=== PATIENT | male | born 1965 | race Caucasian/White ===

== ENCOUNTER 2017-11-26 07:58 | Inpatient (IN) | payer SELFPAY ==
[~2017-11-26] VITALS: Ht 172.7 cm; Wt 69.2 kg
[~2017-11-26 07:58] MED LIST: IBUP800 PO; PERC5TAB12 PO
[2017-11-26 08:03] VITALS: BP 149/65; PULSE 92; RESP 16; TEMP 97.7; O2SAT 99
[2017-11-26 08:29] VITALS: BP 140/90; PULSE 79; RESP 17; O2SAT 99
--- NOTE | 2017-11-26 10:23 | PD ---
HPI Chief Complaint: Edema Time Seen by Provider: 09:15 Travel History International Travel<30 days: No Contact w/Intl Traveler<30days: No Traveled to known affect area: No History of Present Illness HPI This patient complains of right foot pain. His right fourth toe became black and painful 2 weeks ago. He has let it go up until this point. He denies fever. No injury. Patient was a smoker until 1 year ago. He was a heavy drinker until 1 month ago. Symptoms are severe. No alleviating factors. No exacerbating factors. PFSH Past Medical History Medical History: Denies Significant Hx Diminished Hearing: No Past Surgical History Other Surgery: Yes (JAW FX, SKULL FX) Social History Alcohol Use: No (2-3 MIXED DRINKS PER DAY- denies) Tobacco Use: No Substance Use: No Allergies-Medications (Allergen,Severity, Reaction): Coded Allergies: No Known Allergies (Verified Allergy, Unknown, 11/26/17) Reported Meds & Prescriptions Reported Meds & Active Scripts Active No Active Prescriptions or Reported Medications Review of Systems General / Constitutional: No: Fever Eyes: No: Visual changes HENT: No: Headaches Cardiovascular: Positive: Edema, No: Chest Pain or Discomfort Respiratory: No: Shortness of Breath Gastrointestinal: No: Abdominal Pain Genitourinary: No: Dysuria Musculoskeletal: Positive: Edema, Pain Skin: No Rash Neurologic: No: Weakness Psychiatric: No: Depression Endocrine: No: Polydipsia Hematologic/Lymphatic: No: Easy Bruising Physical Exam Narrative GENERAL: Well-nourished, well-developed patient with right foot pain . SKIN: Focused skin assessment reveals no rash and nodules. Skin is Warm and dry. HEAD: Atraumatic. Normocephalic. EYES: Pupils equal and round. No scleral icterus. No injection or drainage. ENT: No nasal bleeding or discharge. Mucous membranes pink and moist. NECK: Trachea midline. No JVD. CARDIOVASCULAR: Regular rate and rhythm. No murmur appreciated. RESPIRATORY: No accessory muscle use. Clear to auscultation. Breath sounds equal bilaterally. GASTROINTESTINAL: Abdomen soft, non-tender, nondistended. Hepatic and splenic margins not palpable. MUSCULOSKELETAL: The distal two thirds of his right fourth toe is black and necrotic. There is some yellow puslike discharge from that area. The entire right foot is swollen. Pulses are difficult to obtain. He has a readily palpable posterior tibial pulse on the left foot. No clubbing. No cyanosis. No edema. NEUROLOGICAL: Awake and alert. No obvious cranial nerve deficits. Motor grossly within normal limits. Normal speech. PSYCHIATRIC: Appropriate mood and affect; insight and judgment normal. Data Data Last Documented VS Vital Signs Date Time Temp Pulse Resp B/P (MAP) Pulse Ox O2 Delivery O2 Flow Rate FiO2 11/26/17 10:56 17 11/26/17 08:29 79 140/90 (107) 99 Room Air 11/26/17 08:03 97.7 Orders Orders Iv Access Insert/Monitor (11/26/17 10:10) Complete Blood Count With Diff (11/26/17 10:10) Basic Metabolic Panel (Bmp) (11/26/17 10:10) Prothrombin Time / Inr (Pt) (11/26/17 10:10) Act Partial Throm Time (Ptt) (11/26/17 10:10) Maritime Guard / Telemetry YUMIKO.Q8H (11/26/17 10:10) Electrocardiogram (11/26/17 ) Cta Runoff W Iv Contrast W 3d (11/26/17 ) Piperacil-Tazo 3.375 Gm Premix (Zosyn 3. (11/26/17 10:30) Ondansetron Inj (Zofran Inj) (11/26/17 10:45) Morphine Inj (Morphine Inj) (11/26/17 10:45) Morphine Inj (Morphine Inj) (11/26/17 10:45) Iohexol 350 Inj (Omnipaque 350 Inj) (11/26/17 12:05) Westergren Sedimentation Rate (11/26/17 14:40) Vancomycin Consult Pharmacy (Vancomycin (11/26/17 14:45) Vancomycin Inj (Vancomycin Inj) (11/26/17 14:45) Piperacil-Tazo 3.375 Gm Premix (Zosyn 3. (11/26/17 14:45) Consult Vascular Surgery (11/26/17 ) Place In Observation (11/26/17 ) Vital Signs (Adult) Q4H (11/26/17 14:40) Activity Oob With Assistance (11/26/17 14:40) Intake + Output YUMIKO.QSHIFT (11/26/17 14:40) Diet Npo (1/25/18 Dinner) Sodium Chlor 0.45% 1000 Ml Inj (1/2 Ns 1 (11/26/17 14:40) Sodium Chloride 0.9% Flush (Ns Flush) (11/26/17 14:45) Sodium Chloride 0.9% Flush (Ns Flush) (11/26/17 21:00) Ondansetron Inj (Zofran Inj) (11/26/17 14:45) Comprehensive Metabolic Panel (11/27/17 06:00) Complete Blood Count With Diff (11/27/17 06:00) Pt Request For Service (11/26/17 14:40) Case Management Consult (11/26/17 14:40) Naloxone Inj (Narcan Inj) (11/26/17 14:45) Docusate Sodium-Senna (Beatriz-Colace) (11/26/17 21:00) Magnesium Hydroxide Liq (Milk Of Magnesi (11/26/17 14:45) Sennosides (Senokot) (11/26/17 14:45) Bisacodyl Supp (Dulcolax Supp) (11/26/17 14:45) Lactulose Liq (Lactulose Liq) (11/26/17 14:45) Labs Laboratory Tests Test 11/26/17 10:50 White Blood Count 11.5 TH/MM3 Red Blood Count 4.77 MIL/MM3 Hemoglobin 10.0 GM/DL Hematocrit 32.9 % Mean Corpuscular Volume 69.0 FL Mean Corpuscular Hemoglobin 20.9 PG Mean Corpuscular Hemoglobin Concent 30.3 % Red Cell Distribution Width 18.7 % Platelet Count 349 TH/MM3 Mean Platelet Volume 10.6 FL Neutrophils (%) (Auto) 83.5 % Lymphocytes (%) (Auto) 6.2 % Monocytes (%) (Auto) 7.5 % Eosinophils (%) (Auto) 2.1 % Basophils (%) (Auto) 0.7 % Neutrophils # (Auto) 9.6 TH/MM3 Lymphocytes # (Auto) 0.7 TH/MM3 Monocytes # (Auto) 0.9 TH/MM3 Eosinophils # (Auto) 0.2 TH/MM3 Basophils # (Auto) 0.1 TH/MM3 CBC Comment DIFF FINAL Differential Comment Prothrombin Time 10.6 SEC Prothromb Time International Ratio 1.0 RATIO Activated Partial Thromboplast Time 29.0 SEC Blood Urea Nitrogen 15 MG/DL Creatinine 1.03 MG/DL Random Glucose 85 MG/DL Calcium Level 9.2 MG/DL Sodium Level 140 MEQ/L Potassium Level 4.0 MEQ/L Chloride Level 106 MEQ/L Carbon Dioxide Level 26.8 MEQ/L Anion Gap 7 MEQ/L Estimat Glomerular Filtration Rate 76 ML/MIN MDM Medical Decision Making Medical Screen Exam Complete: Yes Emergency Medical Condition: Yes Medical Record Reviewed: Yes Differential Diagnosis Arterial thrombosis, arterial embolism, severe PVD Narrative Course I have reviewed the patient's electronic medical record. IV placed CBC shows minimal leukocytosis and minimal anemia Metabolic profile is normal Coagulation studies are normal I've ordered CT of the aorta with runoff to evaluate for thrombosis Will check Doppler pulses in the right foot Giving him a dose of IV Zosyn I cannot palpate right foot pulses but they can be dopplered I can palpate left foot pulses I reviewed the CT of the aorta with runoff vascular surgeon Dr. Bryant He is recommending heparin drip but no emergent surgery at this time. This process is subacute and has been going on for 2 weeks I reviewed with the hospitalist who will admit Critical Care Narrative Aggregate critical care time was 34 minutes. Time to perform other separately billable procedures was not included in the critical care time. My time did not include minutes spent treating any other patients simultaneously or on activities that did not directly contribute to the patient's treatment. The services I provided to this patient were to treat and/or prevent clinically significant deterioration that could result in: Loss of limb, acute arterial thrombus, ischemic limb I provided critical care services requiring my management, as noted below: Chart data review, documentation time, medication orders and management, vital sign assessments/reviewing monitor data, ordering and reviewing lab tests, ordering and interpreting/reviewing x-rays and diagnostic studies, care of the patient and discussion of the patient with the admitting physicians. Diagnosis Primary Impression: Popliteal artery thrombosis Additional Impression: Ischemic rest pain of lower extremity Admitting Information Admitting Physician Requests: Admit Scripts No Active Prescriptions or Reported Meds Donavon Mcduffie MD Nov 26, 2017 10:23
[2017-11-26] MEDS ORDERED: PIPERACIL-TAZO 3.375 GM PREMIX 50 ML IV ONE (10:30)
[2017-11-26] MEDS ORDERED: ONDANSETRON HCL 4 MG/2 ML VIAL IV ONE (10:45)
[2017-11-26] MEDS ORDERED: MORPHINE SULFATE 4 MG/ML INJ IV PUSH ONE (10:45)
[2017-11-26] MEDS ORDERED: MORPHINE SULFATE 2 MG/ML INJ IV PUSH ONE (10:45)
[2017-11-26 11:01] LABS: AUTOMATED NEUTROPHIL # 9.6 TH/MM3 (1.8-7.7); BASOPHIL # 0.1 TH/MM3 (0-0.2); BASOPHIL % 0.7 % (0.0-2.0); EOSINOPHIL # 0.2 TH/MM3 (0-0.4); EOSINOPHIL % 2.1 % (0.0-4.0); HEMATOCRIT 32.9 % (39.0-51.0); LYMPH % 6.2 % (9.0-44.0); LYMPHOCYTE # 0.7 TH/MM3 (1.0-4.8); MEAN CORPUSCULAR HEMOGLOBIN 20.9 PG (27.0-34.0); MEAN CORPUSCULAR HGB CONC 30.3 % (32.0-36.0); MEAN PLATELET VOLUME 10.6 FL (7.0-11.0); MONO % 7.5 % (0.0-8.0); MONOCYTE # 0.9 TH/MM3 (0-0.9); NEUT % 83.5 % (16.0-70.0); PLATELET COUNT 349 TH/MM3 (150-450); RED BLOOD COUNT 4.77 MIL/MM3 (4.50-5.90); RED CELL DISTRIBUTION WIDTH 18.7 % (11.6-17.2); WHITE BLOOD COUNT 11.5 TH/MM3 (4.0-11.0)
[2017-11-26 11:11] LABS: PROTHROMBIN TIME - PATIENT 10.6 SEC (9.8-11.6)
[2017-11-26 11:25] LABS: BICARBONATE 26.8 MEQ/L (21.0-32.0); CALCIUM 9.2 MG/DL (8.5-10.1); CREATININE 1.03 MG/DL (0.60-1.30)
[2017-11-26] MEDS ORDERED: IOHEXOL 350 MG/ML 10 ML VIAL (for RAD DIAG) IVCONTRAST ONE (12:05)
--- NOTE | 2017-11-26 13:55 | RADRPT ---
EXAM DATE/TIME: 11/26/2017 11:48 [facility] COMPARISON: No previous studies available for comparison. INDICATIONS : Right foot pain, unable to stand on right foot. IV CONTRAST: 87 cc Omnipaque 350 (iohexol) IV RADIATION DOSE: 7.62 CTDIvol (mGy) MEDICAL HISTORY : Gout SURGICAL HISTORY : None. ENCOUNTER: Initial ACUITY: 1 week PAIN SCALE: 10/10 LOCATION: Right Foot TECHNIQUE: Volumetric scanning was performed using a multi-row detector CT scanner. The data was post processed with a variety of visualization algorithms including full volume maximum intensity projection, multi -planar sliding thin slab reformation, curved planar reformation, and surface rendering techniques. Using automated exposure control and adjustment of the mA and/or kV according to patient size, radiat ion dose was kept as low as reasonably achievable to obtain optimal diagnostic quality images. DICO M format image data is available electronically for review and comparison. FINDINGS: Aorta/inflow: Mild scattered calcified and noncalcified atheromatous plaque throughout the aorta and inflow vessels . No aneurysmal change, dissection, or stenosis. 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 The arterial supply arises from the bifurcation point of the aorta similar to the typical location of a presacral artery origin. 2 renal arteries supply the right kidn ey. They are patent. The celiac, SMA, and YASMINE are patent. The left internal iliac artery is occluded. The origin is patent but quickly occludes and there is faint opacification of the peripheral distrib ution. Right internal iliac artery is patent.. Right lower extremity: There is acute thrombus seen involving the below-knee popliteal artery. This begins at the level of t he knee joint and extends through the entire below-knee popliteal artery and into the origin of the t rifurcation vessels. There is reconstitution of the proximal peroneal and posterior tibial arteries. No appreciable reconstitution of the anterior tibial. The inflow is otherwise patent. Left lower extremity: There is variant anatomy involving the common femoral artery. There is a trifurcation seen involving the profunda femoris. This is patent. The SFA and popliteal artery are patent. 3 vessel runoff to the left foot. Other structures: Edema is seen involving the right lower extremity. As most pronounced at the level of the ankle. The left kidney is ectopic within the pelvis. CONCLUSION: 1. Acute occlusive thrombus involving the below-knee popliteal artery and proximal trifurcation vesse ls on the right. There is reconstitution of the peroneal and posterior tibial artery. 2. 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 3. Otherwise patent inflow, outflow, and runoff bilaterally. 4. 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 Juan Webster Jr., MD on November 26, 2017 at 13:43 Board Certified Radiologist. This report was verified electronically.
[2017-11-26] MEDS ORDERED: MAGNESIUM HYDROXIDE SUSP 30 ML CUP PO PRN (14:45)
[2017-11-26] MEDS ORDERED: SENNOSIDES 8.6 MG TAB PO PRN (14:45)
[2017-11-26] MEDS ORDERED: ONDANSETRON HCL 4 MG/2 ML VIAL IVP PRN (14:45)
[2017-11-26] MEDS ORDERED: NALOXONE HCL 0.4 MG/ML AMP IV PUSH PRN ×2 (14:45→15:30)
[2017-11-26] MEDS ORDERED: BISACODYL 10 MG SUPP RECTAL PRN (14:45)
[2017-11-26] MEDS ORDERED: Vancomycin Consult Pharmacy 1 EA OTHER SCH (14:45)
[2017-11-26] MEDS ORDERED: SODIUM CHLORIDE 0.9% FLUSH 10 ML FLUSH IV FLUSH PRN (14:45)
[2017-11-26] MEDS ORDERED: LACTULOSE SYRUP 20 GM/30 ML CUP PO PRN (14:45)
[2017-11-26 15:13] VITALS: BP 172/74; PULSE 62; RESP 20
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
[2017-11-26] MEDS ORDERED: ACETAMINOPHEN/HYDROcodone 325 MG/5 MG TAB PO PRN (15:30)
[2017-11-26] MEDS: ACETAMINOPHEN/HYDROcodone 325 MG/7.5 MG TAB PO PRN ×2 (15:46→20:30)
[2017-11-26] MEDS: SODIUM CHLOR 0.45% 1000 ML INJ 1,000 ML IV SCH (15:46)
[2017-11-26] MEDS: MORPHINE SULFATE 4 MG/ML INJ IV PUSH PRN ×2 (16:50→21:40)
--- NOTE | 2017-11-26 16:55 | HHI.HP ---
[facility] No Primary Care Physician Admission Diagnosis arterial thrombus, ischemic rest pain, necrotic R fourth toe Diagnoses: Travel History International Travel<30 Days: No Contact w/Intl Traveler <30 Da: No Traveled to Known Affected Are: No History of Present Illness 52-year-old male with a past extensive history of smoking, gout, who presents with a two-week history of worsening constant, nonradiating right foot pain, with drastic worsening over the past day. Pain is worse with elevation, better with dangling. Denies any fevers, chills, chest pain, shortness of breath. He denies any systemic symptoms, however says the pain is incapacitating. Review of Systems Performed and negative except for history of present illness and past medical history. Past Family Social History Allergies: Coded Allergies: No Known Allergies (Verified Allergy, Unknown, 11/26/17) Physical Exam Vital Signs Vital Signs Date Time Temp Pulse Resp B/P (MAP) Pulse Ox O2 Delivery O2 Flow Rate FiO2 11/26/17 15:13 62 20 172/74 (106) 11/26/17 10:56 17 11/26/17 10:56 17 11/26/17 08:29 79 17 140/90 (107) 99 Room Air 11/26/17 08:10 18 11/26/17 08:03 97.7 92 16 149/65 (93) 99 Physical Exam GENERAL: This is a well-nourished, well-developed patient, ears in pain. SKIN: No rashes, ecchymoses or lesions. Cool and dry. HEAD: Patient with lack of hair on left side of head due to previous surgeries. EYES: Pupils equal round and reactive. Extraocular motions intact. No scleral icterus. No injection or drainage. ENT: Nose without bleeding, purulent drainage or septal hematoma. Throat without erythema, tonsillar hypertrophy or exudate. Uvula midline. Airway patent. NECK: Trachea midline. No JVD or lymphadenopathy. Supple, nontender, no meningeal signs. CARDIOVASCULAR: Regular rate and rhythm without murmurs, gallops, or rubs. RESPIRATORY: Clear to auscultation. Breath sounds equal bilaterally. No wheezes , rales, or rhonchi. GASTROINTESTINAL: Abdomen soft, non-tender, nondistended. No hepato-splenomegaly , or palpable masses. No guarding. MUSCULOSKELETAL: Extremities without clubbing, cyanosis. Patient has 1+ edema in the right foot, with diminished posterior tibial pulse. Right fourth toe is gangrenous, with erythema, warmth extending up to the distal ankle. No crepitus. No calf tenderness. Negative Homans sign bilaterally. NEUROLOGICAL: Awake and alert. Cranial nerves II through XII intact. Motor and sensory grossly within normal limits. Five out of 5 muscle strength in all muscle groups. Normal speech. Laboratory Laboratory Tests Test 11/26/17 10:50 11/26/17 15:53 White Blood Count 11.5 Red Blood Count 4.77 Hemoglobin 10.0 Hematocrit 32.9 Mean Corpuscular Volume 69.0 Mean Corpuscular Hemoglobin 20.9 Mean Corpuscular Hemoglobin Concent 30.3 Red Cell Distribution Width 18.7 Platelet Count 349 Mean Platelet Volume 10.6 Neutrophils (%) (Auto) 83.5 Lymphocytes (%) (Auto) 6.2 Monocytes (%) (Auto) 7.5 Eosinophils (%) (Auto) 2.1 Basophils (%) (Auto) 0.7 Neutrophils # (Auto) 9.6 Lymphocytes # (Auto) 0.7 Monocytes # (Auto) 0.9 Eosinophils # (Auto) 0.2 Basophils # (Auto) 0.1 CBC Comment DIFF FINAL Differential Comment Prothrombin Time 10.6 Prothromb Time International Ratio 1.0 Activated Partial Thromboplast Time 29.0 Blood Urea Nitrogen 15 Creatinine 1.03 Random Glucose 85 Calcium Level 9.2 Sodium Level 140 Potassium Level 4.0 Chloride Level 106 Carbon Dioxide Level 26.8 Anion Gap 7 Estimat Glomerular Filtration Rate 76 Result Diagram: 11/26/17 1050 11/26/17 1050 Caprini VTE Risk Assessment Caprini VTE Risk Assessment: No/Low Risk (score <= 1) Caprini Risk Assessment Model Point Value = 1 Point Value = 2 Point Value = 3 Point Value = 5 Age 41-60 Minor surgery BMI > 25 kg/m2 Swollen legs Varicose veins or History of unexplained or recurrent spontaneous Oral contraceptives or hormone replacement Sepsis (< 1 month) Serious lung disease, including pneumonia (< 1 month) Abnormal pulmonary function Acute myocardial infarction Congestive heart failure (< 1 month) History of inflammatory bowel disease Medical patient at bed rest Age 61-74 Arthroscopic surgery Major open surgery (> 45 min) Laparoscopic surgery (> 45 min) Malignancy Confined to bed (> 72 hours) Immobilizing plaster cast Central venous access Age >= 75 History of VTE Family history of VTE Factor V Leiden Prothrombin [id number] Lupus anticoagulant Anticardiolipin antibodies Elevated serum homocysteine Heparin-induced thrombocytopenia Other congenital or acquired thrombophilia Stroke (< 1 month) Elective arthroplasty Hip, pelvis, or leg fracture Acute spinal cord injury (< 1 month) Prophylaxis Regimen Total Risk Factor Score Risk Level Prophylaxis Regimen 0-1 Low Early ambulation 2 Moderate Order ONE of the following: *Sequential Compression Device (SCD) *Heparin 5000 units SQ BID 3-4 Higher Order ONE of the following medications: *Heparin 5000 units SQ TID *Enoxaparin/Lovenox 40 mg SQ daily (WT < 150 kg, CrCl > 30 mL/min) *Enoxaparin/Lovenox 30 mg SQ daily (WT < 150 kg, CrCl > 10-29 mL/min) *Enoxaparin/Lovenox 30 mg SQ BID (WT < 150 kg, CrCl > 30 mL/min) AND/OR *Sequential Compression Device (SCD) 5 or more Highest Order ONE of the following medications: *Heparin 5000 units SQ TID (Preferred with Epidurals) *Enoxaparin/Lovenox 40 mg SQ daily (WT < 150 kg, CrCl > 30 mL/min) *Enoxaparin/Lovenox 30 mg SQ daily (WT < 150 kg, CrCl > 10-29 mL/min) *Enoxaparin/Lovenox 30 mg SQ BID (WT < 150 kg, CrCl > 30 mL/min) AND *Sequential Compression Device (SCD) Assessment and Plan Assessment and Plan //Right-sided ischemic foot //Necrotic fourth toe wet gangrene //Suspected osteomyelitis of distal foot. -Risk of right foot loss due to progressive infection, ischemia. -Malodorous indication of anaerobic infection. -Aorta CTA with runoff showing occlusive thrombus of popliteal artery on the right. -Vascular surgery following. Appreciate assistance. -Podiatry consulted. -MARY KAY pending. -Angiogram planned for Thursday 11/[address] Feezor. -Order heparin drip. -start on broad-spectrum antibiotics including coverage for gram positives, as well as anaerobes. -Sedimentation rate ordered and pending Continue to monitor closely. //Microcytic anemia. -Hemoglobin 10, with MCV in the 60s. -Could be anemia of inflammation due to infection. -due to the fact the patient on need to be on anticoagulation, will check iron studies, ferritin. //hypertensive. Systolic blood pressure 170/74 on admission. We will add as needed Vasotec. Discussed Condition With Patient, nurse, ED physician. Physician Certification 2 Midnight Certification Type: Admission for Inpatient Services Order for Inpatient Services The services are ordered in accordance with Medicare regulations or non- Medicare payer requirements, as applicable. In the case of services not specified as inpatient-only, they are appropriately provided as inpatient services in accordance with the 2-midnight benchmark. Estimated LOS (days): 3 days is the estimated time the patient will need to remain in the hospital, assuming treatment plan goals are met and no additional complications. Post-Hospital Plan: [place] Miguel Hernandez MD Nov 26, 2017 16:55
[2017-11-26] MEDS ORDERED: ENALAPRILAT 1.25 MG/ML VIAL IV PUSH PRN (17:00)
[2017-11-26] MEDS ORDERED: HEPARIN SODIUM - IV 10,000 UNITS/10 ML VIAL IV ONE (17:00)
[2017-11-26] MEDS: HEPARIN-D5W 25,000 U/250 ML 250 ML IV PRN (18:28)
[2017-11-26] MEDS: PIPERACIL-TAZO 3.375 GM PREMIX 50 ML IV SCH ×2 (18:28→23:47)
[2017-11-26] MEDS: VANCOMYCIN 1 GM/200 ML INJ 200 ML IV SCH (19:11)
[2017-11-26 20:00] VITALS: BP 156/78; PULSE 78; RESP 16; O2SAT 99
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
--- NOTE | 2017-11-26 20:23 | RADRPT ---
EXAM DATE/TIME: 11/26/2017 18:43 [facility] COMPARISON: No previous studies available for comparison. INDICATIONS : Preop for potential graft. MEDICAL HISTORY : Right foot pain. SURGICAL HISTORY : Jaw and skull fracture surgeries. ENCOUNTER: Initial ACUITY: 1 day PAIN SCORE: 6/10 LOCATION: Bilateral leg. GREATER SAPHENOUS VEIN THIGH: PROXIMAL: Right 3 mm Left 3 mm MID: Right 3 mm Left 3 mm DISTAL: Right 3 mm Left 3 mm CALF: PROXIMAL: Right 2 mm Left 2 mm MID: Right 3 mm Left 2 mm DISTAL: Right 3 mm Left 3 mm FINDINGS: The venous system of the lower extremities are patent by color Doppler imaging. Measurements of the leg veins (in mm) are listed above. CONCLUSION: Lower extremity venous mapping as above. Rubén Mcclure MD on November 26, 2017 at 20:20 Board Certified Radiologist. This report was verified electronically.
--- NOTE | 2017-11-26 20:23 | RADRPT ---
EXAM DATE/TIME: 11/26/2017 19:00 [facility] COMPARISON: No previous studies available for comparison. INDICATIONS : Preop for potential graft. MEDICAL HISTORY : Right foot pain. SURGICAL HISTORY : Jaw and skull fracture surgeries. ENCOUNTER: Initial ACUITY: 1 day PAIN SCORE: 0/10 LOCATION: Bilateral arm. FINDINGS: RIGHT UPPER EXTREMITY: There is spontaneous flow documented in the brachial, basilic, cephalic, axillary, and subclavian vei ns. The vessels are compressible and augmentation response is documented. No filling defects are se en. The flow is phasic with respiration. Direction of flow in the jugular vein is caudal. LEFT UPPER EXTREMITY: There is spontaneous flow documented in the brachial, basilic, cephalic, axillary, and subclavian vei ns. The vessels are compressible and augmentation response is documented. No filling defects are se en. The flow is phasic with respiration. Direction of flow in the jugular vein is caudal. CONCLUSION: No venous thrombosis of either upper extremity. Rubén Mcclure MD on November 26, 2017 at 20:20 Board Certified Radiologist. This report was verified electronically.
--- NOTE | 2017-11-26 20:33 | RADRPT ---
EXAM DATE/TIME: 11/26/2017 19:09 [facility] COMPARISON: No previous studies available for comparison. INDICATIONS : Preop for potential graft. MEDICAL HISTORY : Right foot pain. SURGICAL HISTORY : Jaw and skull fracture surgeries. ENCOUNTER: Initial ACUITY: 1 day PAIN SCORE: 0/10 LOCATION: Bilateral arm. CEPHALIC: ORIGIN: Right 4 mm Left 1 mm MID-ARM: Right 3 mm Left 1 mm ELBOW: Right 4 mm Left 2 mm FOREARM: Right 4 mm Left 2 mm WRIST: Right 3 mm Left 1 mm BASILIC: ORIGIN: Right 3 mm Left 2 mm MID-ARM: Right 4 mm Left 2 mm ELBOW: Right 5 mm Left 3 mm ARTERIES: BRACHIAL: Right 5 mm Left 4 mm ULNAR: Right 4 mm Left 2 mm RADIAL: Right 3 mm Left 2 mm VEINS: RADIAL: Right 2 mm Left 2 mm ULNAR: Right 2 mm Left 1 mm FINDINGS: The venous system of the upper extremities are patent by color Doppler imaging. Measurements of the arm veins (in mm) are listed above. CONCLUSION: Upper extremity venous mapping as above. Rubén Mcclure MD on November 26, 2017 at 20:31 Board Certified Radiologist. This report was verified electronically.
[2017-11-26 21:30] VITALS: BP 142/75; PULSE 65; RESP 18; TEMP 98.2; O2SAT 95
[2017-11-26 21:33] LABS: HEMATOCRIT 30.1 % (39.0-51.0); HEMOGLOBIN 9.4 GM/DL (13.0-17.0); INTERNATIONAL NORMALIZED RATIO 1.1 RATIO; MEAN CELL VOLUME 69.3 FL (80.0-100.0); MEAN CORPUSCULAR HEMOGLOBIN 21.5 PG (27.0-34.0); MEAN CORPUSCULAR HGB CONC 31.1 % (32.0-36.0); MEAN PLATELET VOLUME 9.8 FL (7.0-11.0); PLATELET COUNT 337 TH/MM3 (150-450); RED BLOOD COUNT 4.34 MIL/MM3 (4.50-5.90); RED CELL DISTRIBUTION WIDTH 18.3 % (11.6-17.2); WHITE BLOOD COUNT 11.2 TH/MM3 (4.0-11.0)
[2017-11-26] MEDS: DOCUSATE SODIUM 50 MG/SENNA 8.6 MG TAB PO SCH (21:39)
[2017-11-26] MEDS: SODIUM CHLORIDE 0.9% FLUSH 10 ML FLUSH IV FLUSH SCH (21:39)
[2017-11-26 21:42] LABS: % SATURATION IRON PROFILE 4.8 % (20-50); IRON (FE) 19 MCG/DL (65-175); TOTAL IRON BINDING CAPACITY 398 MCG/DL (250-450)
[2017-11-26 21:45] LABS: FERRITIN 8 NG/ML (26-388)
[2017-11-26] MEDS: HEPARIN SODIUM - IV 10,000 UNITS/10 ML VIAL IV PRN (21:56)
--- NOTE | 2017-11-26 22:45 | EKG ---
Date Performed: 11/26/2017 Time Performed: 11:06:43 PTAGE: 52 years EKG: Sinus rhythm NORMAL ECG NO PREVIOUS TRACING DOCTOR: Dinesh Oneill Interpretating Date/Time 11/26/2017 22:44:20
[2017-11-26] MEDS ORDERED: HEPARIN SODIUM - IV 10,000 UNITS/10 ML VIAL IV PRN (23:00)
[2017-11-26 23:22] VITALS: BP 119/75; PULSE 54; RESP 17; TEMP 98.4; O2SAT 96
[2017-11-27] VITALS (9 sets, daily range): BP systolic 120–152; BP diastolic 69–77; PULSE 52–72; RESP 16–19; TEMP 97.8–99.1; O2SAT 96–100
[2017-11-27] MEDS: ACETAMINOPHEN/HYDROcodone 325 MG/7.5 MG TAB PO PRN ×4 (01:06→21:17)
[2017-11-27] MEDS: SODIUM CHLOR 0.45% 1000 ML INJ 1,000 ML IV SCH ×2 (04:00→12:06)
[2017-11-27 04:10] LABS: AUTOMATED NEUTROPHIL # 8.2 TH/MM3 (1.8-7.7); BASOPHIL # 0.1 TH/MM3 (0-0.2); BASOPHIL % 0.5 % (0.0-2.0); EOSINOPHIL # 0.4 TH/MM3 (0-0.4); HEMATOCRIT 29.9 % (39.0-51.0); HEMOGLOBIN 9.3 GM/DL (13.0-17.0); LYMPH % 9.4 % (9.0-44.0); MEAN CELL VOLUME 68.5 FL (80.0-100.0); MEAN CORPUSCULAR HEMOGLOBIN 21.3 PG (27.0-34.0); MEAN CORPUSCULAR HGB CONC 31.1 % (32.0-36.0); MEAN PLATELET VOLUME 9.5 FL (7.0-11.0); MONO % 9.9 % (0.0-8.0); MONOCYTE # 1.1 TH/MM3 (0-0.9); NEUT % 76.2 % (16.0-70.0); PLATELET COUNT 326 TH/MM3 (150-450); RED BLOOD COUNT 4.37 MIL/MM3 (4.50-5.90); RED CELL DISTRIBUTION WIDTH 18.5 % (11.6-17.2); WHITE BLOOD COUNT 10.7 TH/MM3 (4.0-11.0)
[2017-11-27 04:47] LABS: AST (GOT) 12 U/L (15-37); BICARBONATE 26.9 MEQ/L (21.0-32.0); BLOOD UREA NITROGEN 10 MG/DL (7-18); CALCIUM 8.8 MG/DL (8.5-10.1); CHLORIDE 103 MEQ/L (98-107); CREATININE 1.08 MG/DL (0.60-1.30); GLOMERULAR FILTRATION RATE 72 ML/MIN (>89); GLUCOSE,RANDOM 111 MG/DL (74-106); SODIUM (NA) 138 MEQ/L (136-145)
[2017-11-27 04:50] LABS: ALKALINE PHOSPHATASE 89 U/L (45-117); ALT (GPT) 13 U/L (12-78); TOTAL BILIRUBIN ADULT 0.4 MG/DL (0.2-1.0); TOTAL PROTEIN 7.5 GM/DL (6.4-8.2)
[2017-11-27] MEDS: PIPERACIL-TAZO 3.375 GM PREMIX 50 ML IV SCH ×4 (06:39→23:38)
[2017-11-27] MEDS: DOCUSATE SODIUM 50 MG/SENNA 8.6 MG TAB PO SCH ×2 (08:10→21:18)
[2017-11-27] MEDS: VANCOMYCIN 1 GM/200 ML INJ 200 ML IV SCH ×2 (08:11→18:08)
[2017-11-27] MEDS: SODIUM CHLORIDE 0.9% FLUSH 10 ML FLUSH IV FLUSH SCH ×2 (08:50→21:18)
--- NOTE | 2017-11-27 10:42 | HHI.PR ---
Subjective Remarks Patient is morning says pain has improved somewhat. Denies any chest pain or shortness of breath. Patient denies any blood in stool or black tarry stool. Discussed cocaine positivity on urinalysis. Patient says this does not make sense. I did discuss that we don't circuit judge anybody for drug use, but we do recommend strongly against stimulant, cocaine, crack use due to risk of stroke, arterial ischemia such as in patients situation. he conveys understanding. Objective Vital Signs Date Time Temp Pulse Resp B/P (MAP) Pulse Ox O2 Delivery O2 Flow Rate FiO2 11/27/17 07:05 98.0 59 18 138/75 (96) 100 11/27/17 03:19 18 11/27/17 03:05 98.1 72 16 120/69 (86) 98 11/26/17 23:22 98.4 54 17 119/75 (90) 96 11/26/17 21:45 20 11/26/17 21:30 98.2 65 18 142/75 (97) 95 11/26/17 20:00 78 16 156/78 (104) 99 Nasal Cannula 2.00 11/26/17 15:13 62 20 172/74 (106) 11/26/17 10:56 17 11/26/17 10:56 17 I/O 11/26/17 11/26/17 11/26/17 11/27/17 11/27/17 11/27/17 07:00 15:00 23:00 07:00 15:00 23:00 Intake Total 50 ml 490 ml 950 ml Balance 50 ml 490 ml 950 ml Intake Oral 240 ml IV Total 50 ml 250 ml 950 ml Result Diagram: 11/27/17 03511/27/17 0351 Objective Remarks GENERAL: Patient lying in bed. Appears comfortable. SKIN: Warm and dry. HEAD: Normocephalic. EYES: No scleral icterus. No injection or drainage. NECK: Supple, trachea midline. No JVD. CARDIOVASCULAR: Regular rate and rhythm without murmurs, gallops, or rubs. RESPIRATORY: Breath sounds equal bilaterally. No accessory muscle use. GASTROINTESTINAL: Abdomen soft, non-tender, nondistended. MUSCULOSKELETAL: No cyanosis, or edema. Right ischemic toe as before, however with improved erythema. BACK: Nontender without obvious deformity. No CVA tenderness. A/P Assessment and Plan //Right-sided ischemic foot //Necrotic fourth toe wet gangrene //Suspected osteomyelitis of distal foot. -Risk of right foot loss due to progressive infection, ischemia. -Malodorous indication of anaerobic infection. -Aorta CTA with runoff showing occlusive thrombus of popliteal artery on the right. -Vascular surgery following. Appreciate assistance. -Podiatry consulted. -MARY KAY pending. -Angiogram planned for Thursday 11/[address] Bryant. -Order heparin drip. -start on broad-spectrum antibiotics including coverage for gram positives, as well as anaerobes. -Sedimentation rate ordered and pending Continue to monitor closely. = Sedimentation rate 64. Continue broad-spectrum IV antibiotics. Continue heparin drip. Appreciate podiatry and vascular surgery assistance. //Microcytic anemia. -Hemoglobin 10, with MCV in the 60s. -Could be anemia of inflammation due to infection. -due to the fact the patient on need to be on anticoagulation, will check iron studies, ferritin. = 11/27. Patient with obvious iron deficiency anemia. Will consult GI. //hypertensive. Systolic blood pressure 170/74 on admission. We will add as needed Vasotec. = 11/27. Blood pressure acceptable. Continue to monitor. //Cocaine abuse. Suspected. Cussed risks of cocaine/crack use. Discharge Planning Continues on IV antibiotics. Pending vascular and podiatry surgery clearance. Miguel Hernandez MD Nov 27, 2017 10:42
--- NOTE | 2017-11-27 11:03 | PD.CONS ---
HPI History of Present Illness This is a 52 year old male that was admitted to the hospital on 11/26/17 with right foot pain. Patient now has no chronic fourth toe which is going to be evaluated per podiatry for possible amputation. He is also scheduled for angiogram Thursday, currently being maintained on heparin drip. Currently patient is labs show iron deficiency anemia which patient has been unaware of in his past history. Patient denies any nausea, no vomiting, no diarrhea, no constipation, no abdominal pain or dysphagia. Patient has never had colonoscopy or endoscopy. Patient does note taking Aleve and or ibuprofen weekly especially in the past week since he hurt his right foot. Patient does note some red blood after bowel movement, last time he noticed was last week. States this has been a more recent problem, and has noticed it over the past 2- 3 times with defecation. 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 (Dotty Hernandez) PFSH Past Medical History Gout Smoking up until 11/02/17 EtOH dependence up until 11/02/17 (Dotty Hernandez) Coded Allergies: No Known Allergies (Verified Allergy, Unknown, 11/26/17) Medications Administered Medications Medications (Trade) Dose Ordered Sig/Brian Route PRN Reason Start Time Stop Time Status Last Admin Dose Admin Vancomycin/Sodium Chloride 200 ml @ 200 mls/hr Q12H IV 11/26/17 18:00 11/27/17 08:11 Piperacillin Sod/ Tazobactam Sod 50 ml @ 100 mls/hr Q6H IV 11/26/17 17:00 11/27/17 06:39 Sodium Chloride 1,000 ml @ 75 mls/hr [id number] IV 11/26/17 14:40 11/26/17 15:46 Sodium Chloride (NS Flush) 2 ml BID IV FLUSH 11/26/17 21:00 11/26/17 21:39 Senna/Docusate Sodium (Beatriz-Colace) 1 tab BID PO 11/26/17 21:00 11/27/17 08:10 Acetaminophen/ Hydrocodone Bitart ([place] 7.5-325 Mg) 1 tab Q4H PRN PO PAIN SCALE 6 TO 10 11/26/17 15:30 11/27/17 08:10 Morphine Sulfate (Morphine Inj) 4 mg Q3H PRN IV PUSH BREAKTHROUGH PAIN 11/26/17 15:45 11/26/17 21:40 Heparin Sodium (Porcine) (Heparin Inj) 2,500 units UNSCH PRN IV APTT 25 TO 39 11/26/17 23:00 11/26/17 21:56 Heparin Sodium/ Dextrose 250 ml @ 8 mls/hr TITRATE PRN IV Coagulation Management 11/26/17 17:00 11/26/17 18:28 Social History Smoking and EtOH abuse until 11/02/17 She denies illicit drug use but noted opiates and cocaine on drug screen on admission to the hospital (Dotty Hernandez) Review of Systems Gastrointestinal: COMPLAINS OF: Bloody stools (noted with bowel movement) ( Dotty Hernandez) GI Exam Vitals I&O Vital Signs Date Time Temp Pulse Resp B/P (MAP) Pulse Ox O2 Delivery O2 Flow Rate FiO2 11/27/17 07:05 98.0 59 18 138/75 (96) 100 11/27/17 03:19 18 11/27/17 03:05 98.1 72 16 120/69 (86) 98 11/26/17 23:22 98.4 54 17 119/75 (90) 96 11/26/17 21:45 20 11/26/17 21:30 98.2 65 18 142/75 (97) 95 11/26/17 20:00 78 16 156/78 (104) 99 Nasal Cannula 2.00 11/26/17 15:13 62 20 172/74 (106) 11/26/17 10:56 17 11/26/17 10:56 17 I/O 11/26/17 11/26/17 11/26/17 11/27/17 11/27/17 11/27/17 07:00 15:00 23:00 07:00 15:00 23:00 Intake Total 50 ml 490 ml 950 ml Balance 50 ml 490 ml 950 ml Intake Oral 240 ml IV Total 50 ml 250 ml 950 ml Imaging Last Impressions Upper Extremity Ultrasound 11/26/17 0000 Signed Impressions: Service Date/Time: November 19:00 - CONCLUSION: No venous thrombosis of either upper extremity. Rubén Mcclure MD Lower Extremity Ultrasound 11/26/17 0000 Signed Impressions: Service Date/Time: November 18:36 - CONCLUSION: No venous thrombosis of either lower extremity. Rubén Mcclure MD Aorta w/Runoff CTA 11/26/17 0000 Signed Impressions: Service Date/Time: November 11:48 - CONCLUSION: 1. Acute occlusive thrombus involving the below-knee popliteal artery and proximal trifurcation vessels on the right. There is reconstitution of the peroneal and posterior tibial artery. 2. 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 3. Otherwise patent inflow, outflow, and runoff bilaterally. 4. 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 Juan Webster Jr., MD Laboratory Test 11/26/17 10:50 11/26/17 15:53 11/26/17 21:00 11/26/17 23:30 White Blood Count 11.5 TH/MM3 11.2 TH/MM3 Red Blood Count 4.77 MIL/MM3 4.34 MIL/MM3 Hemoglobin 10.0 GM/DL 9.4 GM/DL Hematocrit 32.9 % 30.1 % Mean Corpuscular Volume 69.0 FL 69.3 FL Mean Corpuscular Hemoglobin 20.9 PG 21.5 PG Mean Corpuscular Hemoglobin Concent 30.3 % 31.1 % Red Cell Distribution Width 18.7 % 18.3 % Platelet Count 349 TH/MM3 337 TH/MM3 Mean Platelet Volume 10.6 FL 9.8 FL Neutrophils (%) (Auto) 83.5 % Lymphocytes (%) (Auto) 6.2 % Monocytes (%) (Auto) 7.5 % Eosinophils (%) (Auto) 2.1 % Basophils (%) (Auto) 0.7 % Neutrophils # (Auto) 9.6 TH/MM3 Lymphocytes # (Auto) 0.7 TH/MM3 Monocytes # (Auto) 0.9 TH/MM3 Eosinophils # (Auto) 0.2 TH/MM3 Basophils # (Auto) 0.1 TH/MM3 CBC Comment DIFF FINAL Differential Comment Prothrombin Time 10.6 SEC 11.0 SEC Prothromb Time International Ratio 1.0 RATIO 1.1 RATIO Activated Partial Thromboplast Time 29.0 SEC 35.0 SEC Blood Urea Nitrogen 15 MG/DL Creatinine 1.03 MG/DL Random Glucose 85 MG/DL Calcium Level 9.2 MG/DL Sodium Level 140 MEQ/L Potassium Level 4.0 MEQ/L Chloride Level 106 MEQ/L Carbon Dioxide Level 26.8 MEQ/L Anion Gap 7 MEQ/L Estimat Glomerular Filtration Rate 76 ML/MIN Erythrocyte Sedimentation Rate 64 mm/hr Iron Level 19 MCG/DL Total Iron Binding Capacity 398 MCG/DL Percent Iron Saturation 4.8 % Ferritin 8 NG/ML Urine Opiates Screen POS Urine Barbiturates Screen NEG Urine Amphetamines Screen NEG Urine Benzodiazepines Screen NEG Urine Cocaine Screen POS Urine Cannabinoids Screen NEG Test 11/27/17 00:48 11/27/17 03:51 Activated Partial Thromboplast Time 39.2 SEC 38.1 SEC White Blood Count 10.7 TH/MM3 Red Blood Count 4.37 MIL/MM3 Hemoglobin 9.3 GM/DL Hematocrit 29.9 % Mean Corpuscular Volume 68.5 FL Mean Corpuscular Hemoglobin 21.3 PG Mean Corpuscular Hemoglobin Concent 31.1 % Red Cell Distribution Width 18.5 % Platelet Count 326 TH/MM3 Mean Platelet Volume 9.5 FL Neutrophils (%) (Auto) 76.2 % Lymphocytes (%) (Auto) 9.4 % Monocytes (%) (Auto) 9.9 % Eosinophils (%) (Auto) 4.0 % Basophils (%) (Auto) 0.5 % Neutrophils # (Auto) 8.2 TH/MM3 Lymphocytes # (Auto) 1.0 TH/MM3 Monocytes # (Auto) 1.1 TH/MM3 Eosinophils # (Auto) 0.4 TH/MM3 Basophils # (Auto) 0.1 TH/MM3 CBC Comment DIFF FINAL Differential Comment Blood Urea Nitrogen 10 MG/DL Creatinine 1.08 MG/DL Random Glucose 111 MG/DL Total Protein 7.5 GM/DL Albumin 3.0 GM/DL Calcium Level 8.8 MG/DL Alkaline Phosphatase 89 U/L Aspartate Amino Transf (AST/SGOT) 12 U/L Alanine Aminotransferase (ALT/SGPT) 13 U/L Total Bilirubin 0.4 MG/DL Sodium Level 138 MEQ/L Potassium Level 3.5 MEQ/L Chloride Level 103 MEQ/L Carbon Dioxide Level 26.9 MEQ/L Anion Gap 8 MEQ/L Estimat Glomerular Filtration Rate 72 ML/MIN Physical Examination HEENT: Pupils round and reactive to light; normocephalic; atraumatic; no jaundice. Throat clean NECK: Neck is supple, no JVD, no lymphadenopathy. CHEST: Chest is clear to auscultation and percussion. No shortness of breath CARDIAC: Regular rate and rhythm ABDOMEN: Soft, nondistended, nontender; no hepatosplenomegaly; bowel sounds are present 4 quadrants EXTREMITIES: No clubbing, cyanosis, or edema. SKIN: Jai, dry; no rash; no jaundice. POLICE INSPECTOR: alert and oriented times three. Answers questions (Dotty Hernandez) Assessment and Plan Plan Anemia, iron deficiency. Patient notes weekly and said use and more often for the past couple weeks. This could be chronic in nature, inflammatory Bright red blood with BM. Noted to 3 times last one noted last week. Possibly due to hemorrhoids Currently denies any nausea ,vomiting ,diarrhea ,constipation ,abdominal pain or dysphasia Recent and previous smoker as well as daily EtOH abuse at least a sixpack a day It is noted in the record patient will need angiogram Thursday. We'll need to correlate scheduling with EGD/colonoscopy Patient may be on anticoagulation after this hospital stay pending vascular needs, he will be high risk for GI bleed especially with possible hemorrhoid bleeding. Start stool softeners, goal is for no straining and monitor rectal bleeding, will check Hemoccults to monitor for any further rectal bleeding PPI due to patient's long history of smoking and alcohol use, and possible drug use. Plan Colace 1 by mouth twice a day, Start ferrous sulfate 325 mg by mouth twice a day PPI We'll schedule EGD and colonoscopy for 11/30/17 Consents to be on chart Prep GoLYTELY to be given Thursday around 4 PM Clear liquids Thursday Nothing by mouth at midnight 11/30/2017 Continue heparin drip for now, off at midnight on 11/30/17, Monitor hemoglobin and labs Call for any acute bleeding episodes Hemoccult stools 3 Further recommendations and plan a care will be based on symptoms and patient's needs while in the hospital Patient has been seen by myself and Dr. Olmedo, note is written on his behalf (Dotty Hernandez) Plan patient was seen and examined, agree with above notes, plan for colon/EGD Thursday (Jerman Olmedo MD) Dotty Hernandez Nov 27, 2017 11:03 Jerman Olmedo MD Nov 27, 2017 17:40
[2017-11-27] MEDS ORDERED: DOCUSATE SODIUM 100 MG CAP PO SCH (11:15)
[2017-11-27] MEDS: PANTOPRAZOLE SOD 40 MG DELAYED RELEASE TAB PO SCH (12:05)
[2017-11-27] MEDS: MORPHINE SULFATE 4 MG/ML INJ IV PUSH PRN ×2 (12:05→18:09)
--- NOTE | 2017-11-27 12:58 | RADRPT ---
EXAM DATE/TIME: 11/26/2017 00:00 [facility] COMPARISON: CTA RUNOFF W 3D RECON, November 26, 2017, 11:48. INDICATIONS : Ischemic rest pain, necrotic right toe TECHNIQUE: Four-cuff ankle and brachial pressures were obtained. Pulse cuff waveform tracings of the ankles were recorded, and ankle-brachial indices were calculated. PRESSURES (mmHg): Brachial (arm): Right 122 Left 135 Ankle: Right 63 Left 166 MARY KAY: Right 0.47 Left 1.23 TBI: Right 0.00 Left 0.71 PULSED CUFF WAVEFORMS: Demonstrate normal amplitude bilaterally. CONCLUSION: Severely diminished MARY KAY on the right. CT angiography from 11/26/17 demonstrates occlusion of the right popliteal and trifurcation vessels. Sylvain Petersen MD on November 27, 2017 at 12:45 Board Certified Radiologist. This report was verified electronically.
[2017-11-27 15:27] LABS: HEMOGLOBIN A1C 5.8 % (4.3-6.0)
[2017-11-27] MEDS: HEPARIN SODIUM - IV 10,000 UNITS/10 ML VIAL IV PRN (16:53)
[2017-11-27] MEDS: HEPARIN-D5W 25,000 U/250 ML 250 ML IV PRN ×2 (17:05→23:13)
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
--- NOTE | 2017-11-27 21:08 | RADRPT ---
EXAM DATE/TIME: 11/27/2017 20:19 [facility] COMPARISON: No previous studies available for comparison. INDICATIONS : Pain with no known injuries. MEDICAL HISTORY : Gout. SURGICAL HISTORY : None. ENCOUNTER: Subsequent ACUITY: 2 days PAIN SCORE: 10/10 LOCATION: Right Foot. FINDINGS: There is a remote healed fracture of the fifth metatarsal. No acute fracture or dislocation. No bony destructive changes. CONCLUSION: 1. No acute findings. Herson Ricardo MD on November 27, 2017 at 21:03 Board Certified Radiologist. This report was verified electronically.
[2017-11-27] MEDS: FERROUS SULFATE 325 MG (65 MG ELEMENTAL IRON) TAB PO SCH (21:18)
[2017-11-28] VITALS (7 sets, daily range): BP systolic 104–132; BP diastolic 57–75; PULSE 58–73; RESP 17–20; TEMP 97.8–98.6; O2SAT 94–99
[2017-11-28] MEDS: MORPHINE SULFATE 4 MG/ML INJ IV PUSH PRN ×4 (00:40→23:20)
[2017-11-28] MEDS: ACETAMINOPHEN/HYDROcodone 325 MG/7.5 MG TAB PO PRN ×4 (05:03→20:36)
[2017-11-28] MEDS: PIPERACIL-TAZO 3.375 GM PREMIX 50 ML IV SCH ×4 (05:03→23:21)
[2017-11-28] MEDS: SODIUM CHLOR 0.45% 1000 ML INJ 1,000 ML IV SCH ×2 (05:05→20:00)
[2017-11-28] MEDS ORDERED: PHARMACY ORDERED LAB ONE (05:45)
[2017-11-28] MEDS: VANCOMYCIN 1 GM/200 ML INJ 200 ML IV SCH (06:11)
[2017-11-28] MEDS ORDERED: LIDOCAINE HCL 2% 50 ML VIAL ONE (07:23)
[2017-11-28] MEDS ORDERED: BUPIVACAINE HCL PF 0.5% 30 ML VIAL ONE (07:23)
[2017-11-28] MEDS ORDERED: ACETAMINOPHEN 1000 MG/100 ML 100 ML IV ONE (08:00)
[2017-11-28] MEDS: SODIUM CHLORIDE 0.9% FLUSH 10 ML FLUSH IV FLUSH SCH ×2 (08:50→20:39)
[2017-11-28] MEDS: FERROUS SULFATE 325 MG (65 MG ELEMENTAL IRON) TAB PO SCH ×2 (08:50→20:36)
[2017-11-28] MEDS: DOCUSATE SODIUM 50 MG/SENNA 8.6 MG TAB PO SCH ×2 (08:50→20:36)
[2017-11-28] MEDS: PANTOPRAZOLE SOD 40 MG DELAYED RELEASE TAB PO SCH (08:50)
--- NOTE | 2017-11-28 09:35 | HHI.PR ---
Immediate Post Op Note Procedure Date: Nov 28, 2017 Pre Op Diagnosis: Gangrene right 4th toe Post Op Diagnosis: same Surgeon: Darwin Dent DPM Senior Sales Administrator(s): Staff Procedure: Amputation right 4th toe Findings: Consistent with diagnosis. Distal 2/3 of right 4th digit hard necrotic tissue and malodor. Margins appear health. Two semielliptical incisions encompassing toe to amputate in disarticulation at 4th metatarsophalangeal joint. No purulence encountered. Healthy white cartilage cap to 4th metatarsal head. Minimal bleeding with no tourniquet and patient on heparin drip. Irrigation with normal saline and primary closure with 2-0 nylon, followed by xeroform, 4x4 , cast padding, cheri with no compression to Right foot. No further surgical intervention planned for foot at this time. Patient scheduled for angio with Dr Bryant Thursday. Follow up in clinic 1 week for dressing change WBAT in surgical shoe Right foot Additional Information: none Complications: none Specimen(s) removed: right 4th toe to pathology Estimated blood loss: minimal Anesthesia: MAC, Local (10mL 0.5% marcaine plain) Drains: None IVF Tourniquet time (min at mmHg) no tourniquet utilized Patient to: PACU Patient Condition: Good Date/Time of Procedure: SEE SURGICAL CARE RECORD Darwin Dent DPM Nov 28, 2017 09:35
[2017-11-28] MEDS ORDERED: KETAMINE HCL 500 MG/5 ML VIAL ONE (09:40)
[2017-11-28] MEDS ORDERED: MIDAZOLAM HCL 2 MG/2 ML VIAL ONE (09:40)
[2017-11-28] MEDS ORDERED: DO NOT ADM ANY ANTICOAGULANT DRUGS PRN (11:00)
--- NOTE | 2017-11-28 11:10 | HHI.PR ---
Subjective Remarks patient awake and alert, back from surgery no complains of pain Objective Vitals Vital Signs Date Time Temp Pulse Resp B/P (MAP) Pulse Ox O2 Delivery O2 Flow Rate FiO2 11/28/17 09:56 68 19 151/84 (106) 100 Room Air 11/28/17 09:48 71 19 143/84 (103) 100 Room Air 11/28/17 09:35 98.2 72 19 129/73 (91) 100 Nasal Cannula 2 11/28/17 08:00 98.1 60 17 104/57 (73) 96 11/28/17 06:23 18 11/28/17 06:23 18 11/28/17 06:02 97.9 63 20 129/66 (87) 94 11/28/17 00:51 98.2 72 20 124/59 (80) 96 11/27/17 21:06 98.5 68 19 152/77 (102) 96 11/27/17 18:17 57 11/27/17 15:26 99.1 57 18 129/70 (89) 98 11/27/17 12:00 52 11/27/17 11:46 97.8 58 18 144/77 (99) 98 I/O 11/27/17 11/27/17 11/27/17 11/28/17 11/28/17 11/28/17 07:00 15:00 23:00 07:00 15:00 23:00 Intake Total 950 ml 1965 ml 50 ml 100 ml 600 ml Output Total 500 ml 3 ml Balance 950 ml 1965 ml 50 ml -400 ml 597 ml IV Total 950 ml 1965 ml 50 ml 100 ml Other 600 ml Output Urine Total 500 ml Estimated Blood Loss 3 ml Result Diagram: 11/27/17 0351 11/27/17 0351 Imaging Last Impressions Foot X-Ray 11/27/17 0000 Signed Impressions: Service Date/Time: Monday, November 27, 2017 20:19 - CONCLUSION: 1. No acute findings. Herson Ricardo MD Upper Extremity Ultrasound 11/26/17 0000 Signed Impressions: Service Date/Time: November 19:00 - CONCLUSION: No venous thrombosis of either upper extremity. Rubén Mcclure MD Lower Extremity Ultrasound 11/26/17 0000 Signed Impressions: Service Date/Time: November 18:36 - CONCLUSION: No venous thrombosis of either lower extremity. Rubén Mcclure MD Aorta w/Runoff CTA 11/26/17 0000 Signed Impressions: Service Date/Time: November 11:48 - CONCLUSION: 1. Acute occlusive thrombus involving the below-knee popliteal artery and proximal trifurcation vessels on the right. There is reconstitution of the peroneal and posterior tibial artery. 2. 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 3. Otherwise patent inflow, outflow, and runoff bilaterally. 4. 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 -Aorta CTA with runoff showing occlusive thrombus of popliteal artery on the right. -Vascular surgery following. -Podiatry ff -MARY KAY pending. -Angiogram planned for Thursday 11/[address] Bryant. -on heparin drip. -start on broad-spectrum antibiotics including coverage for gram positives, as well as anaerobes. = Sedimentation rate 64. Continue broad-spectrum IV antibiotics. //Microcytic anemia.-Iron deficiency Anemia -Hemoglobin 10, with MCV in the 60s. - start Iron - GI consulted and ff //hypertensive. Systolic blood pressure 170/74 on admission. We will add as needed Vasotec. = 11/27. Blood pressure acceptable. Continue to monitor. //Cocaine abuse. Suspected. Cussed risks of cocaine/crack use. Carrie Ventura MD Nov 28, 2017 11:10
--- NOTE | 2017-11-28 11:56 | RADRPT ---
EXAM DATE/TIME: 11/28/2017 09:41 [facility] COMPARISON: FOOT RIGHT COMPLETE ([id number]), November 27, 2017, 20:19. INDICATIONS : Post-op. MEDICAL HISTORY : None. SURGICAL HISTORY : None. ENCOUNTER: Subsequent ACUITY: 2 days PAIN SCORE: 0/10 LOCATION: Right Foot. FINDINGS: 3 views of the postoperative right foot demonstrates interval resection of the fourth digit proximal middle and distal phalanx. Stable appearance of old healed fracture deformity involving the fifth met atarsal. The osseous structures are otherwise intact. CONCLUSION: Interval resection of the proximal middle and distal phalanx of the fourth digit. Meryl Fierro MD on November 28, 2017 at 11:52 Board Certified Radiologist. This report was verified electronically.
[2017-11-28] MEDS ORDERED: LIDOCAINE HCL 1% PF 5 ML SYRINGE OTHER ONE (12:00)
[2017-11-28] MEDS ORDERED: GLYCOPYRROLATE 1 MG/5 ML SYRINGE IV PUSH ONE (12:00)
[2017-11-28] MEDS ORDERED: PROPOFOL 200 MG/20 ML AMP IV ONE (12:00)
[2017-11-28] MEDS ORDERED: SODIUM CHLORIDE 0.9% 20 ML VIAL IV ONE (12:00)
--- NOTE | 2017-11-28 16:59 | HHI.GIFU ---
Subjective Remarks resting in the bed dozing, but responds to verbal stimuli Stable HGB 9.3 on 11/27/17 Denies any acute pain. Objective Vitals I&O Vital Signs Date Time Temp Pulse Resp B/P (MAP) Pulse Ox O2 Delivery O2 Flow Rate FiO2 11/28/17 16:00 98.4 58 17 132/60 (84) 97 11/28/17 14:24 17 11/28/17 12:00 97.8 66 17 116/75 (89) 99 11/28/17 09:56 68 19 151/84 (106) 100 Room Air 11/28/17 09:48 71 19 143/84 (103) 100 Room Air 11/28/17 09:35 98.2 72 19 129/73 (91) 100 Nasal Cannula 2 11/28/17 08:00 98.1 60 17 104/57 (73) 96 11/28/17 06:23 18 11/28/17 06:02 97.9 63 20 129/66 (87) 94 11/28/17 00:51 98.2 72 20 124/59 (80) 96 11/27/17 21:06 98.5 68 19 152/77 (102) 96 11/27/17 18:17 57 I/O 11/27/17 11/27/17 11/27/17 11/28/17 11/28/17 11/28/17 07:00 15:00 23:00 07:00 15:00 23:00 Intake Total 950 ml 1965 ml 50 ml 100 ml 600 ml 480 ml Output Total 500 ml 3 ml 650 ml Balance 950 ml 1965 ml 50 ml -400 ml 597 ml -170 ml Intake Oral 480 ml IV Total 950 ml 1965 ml 50 ml 100 ml Other 600 ml Output Urine Total 500 ml 650 ml Estimated Blood Loss 3 ml # Bowel Movements 0 Laboratory Laboratory Tests Test 11/27/17 22:51 11/28/17 03:45 11/28/17 05:46 11/28/17 11:35 Activated Partial Thromboplast Time 33.6 41.8 36.7 Vancomycin Level Trough 11.7 Imaging Last Impressions Foot X-Ray 11/28/17 0000 Signed Impressions: Service Date/Time: Tuesday, November 28, 2017 09:41 - CONCLUSION: Interval resection of the proximal middle and distal phalanx of the fourth digit. Meryl Fierro MD Upper Extremity Ultrasound 11/26/17 0000 Signed Impressions: Service Date/Time: November 19:00 - CONCLUSION: No venous thrombosis of either upper extremity. Rubén Mcclure MD Lower Extremity Ultrasound 11/26/17 0000 Signed Impressions: Service Date/Time: November 18:36 - CONCLUSION: No venous thrombosis of either lower extremity. Rubén Mcclure MD Aorta w/Runoff CTA 11/26/17 Signed Impressions: Service Date/Time: November 11:48 - CONCLUSION: 1. Acute occlusive thrombus involving the below-knee popliteal artery and proximal trifurcation vessels on the right. There is reconstitution of the peroneal and posterior tibial artery. 2. 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 3. Otherwise patent inflow, outflow, and runoff bilaterally. 4. 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 Juan Webster Jr., MD Physical Exam HEENT: Pupils round and reactive to light; normocephalic; atraumatic; no jaundice. NECK: Neck is supple, CHEST: Chest without rhonchi CARDIAC: Regular rate and rhythm ABDOMEN: Soft, round, nontender; no hepatosplenomegaly; bowel sounds are present in all four quadrants. EXTREMITIES: [place]. cool to touch. SKIN: dry. no rash; no jaundice. 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 Assessment and Plan Plan History/Assessment Anemia, iron deficiency. Patient notes weekly Ansaid use and more often for the past couple weeks. This could be chronic in nature, inflammatory Bright red blood with BM. Noted to 3 times last one noted last week. Possibly due to hemorrhoids Recent and previous smoker as well as daily EtOH abuse at least a sixpack a day It is noted in the record patient will need angiogram Thursday. We'll need to correlate scheduling with EGD/colonoscopy Patient may be on anticoagulation after this hospital stay pending vascular needs, he will be high risk for GI bleed especially with possible hemorrhoid bleeding. Start stool softeners, goal is for no straining and monitor rectal bleeding, will check Hemoccults to monitor for any further rectal bleeding PPI due to patient's long history of smoking and alcohol use, and possible drug use. Denies any current nausea, vomiting, Abd. Pain. Bowels normal. Plan Stool softners Iron supplements PPI We'll schedule EGD and colonoscopy for 11/30/17, Discussed plan for Prep. and Procedure Consents to be on chart Prep GoLYTELY to be given Thursday around 4 PM Clear liquids Thursday Nothing by mouth at midnight 11/30/2017 Continue heparin drip for now, off at midnight on 11/30/17, Monitor hemoglobin and labs Call for any acute bleeding episodes Hemoccult stools 3 Further recommendations and plan a care will be based on symptoms and patient's needs while in the hospital Patient has been seen by myself and Dr. Olmedo, note is written on his behalf Dotty Hernandez Nov 28, 2017 16:59
[2017-11-28] MEDS: VANCOMYCIN INJ 1,250 MG in SODIUM CHLOR 0.9% 250 ML INJ 250 ML IV SCH (17:57)
[2017-11-28] MEDS: HEPARIN-D5W 25,000 U/250 ML 250 ML IV PRN (20:00)
[2017-11-29] VITALS (9 sets, daily range): BP systolic 114–151; BP diastolic 56–105; PULSE 54–96; RESP 18–20; TEMP 97.8–98.9; O2SAT 94–97
[2017-11-29] MEDS: ACETAMINOPHEN/HYDROcodone 325 MG/7.5 MG TAB PO PRN ×4 (01:00→21:13)
[2017-11-29] MEDS: MORPHINE SULFATE 4 MG/ML INJ IV PUSH PRN ×5 (02:17→21:13)
[2017-11-29 04:00] LABS: HEMATOCRIT 30.2 % (39.0-51.0); HEMOGLOBIN 9.2 GM/DL (13.0-17.0); MEAN CELL VOLUME 68.5 FL (80.0-100.0); MEAN CORPUSCULAR HGB CONC 30.6 % (32.0-36.0); MEAN PLATELET VOLUME 9.6 FL (7.0-11.0); PLATELET COUNT 346 TH/MM3 (150-450); RED CELL DISTRIBUTION WIDTH 18.5 % (11.6-17.2); WHITE BLOOD COUNT 11.1 TH/MM3 (4.0-11.0)
[2017-11-29] MEDS: VANCOMYCIN INJ 1,250 MG in SODIUM CHLOR 0.9% 250 ML INJ 250 ML IV SCH ×2 (05:45→18:46)
[2017-11-29] MEDS: PIPERACIL-TAZO 3.375 GM PREMIX 50 ML IV SCH ×4 (05:45→23:00)
[2017-11-29] MEDS: SODIUM CHLORIDE 0.9% FLUSH 10 ML FLUSH IV FLUSH SCH ×2 (09:09→21:00)
[2017-11-29] MEDS: DOCUSATE SODIUM 50 MG/SENNA 8.6 MG TAB PO SCH ×2 (09:11→21:00)
[2017-11-29] MEDS: FERROUS SULFATE 325 MG (65 MG ELEMENTAL IRON) TAB PO SCH ×2 (09:11→21:13)
[2017-11-29] MEDS: PANTOPRAZOLE SOD 40 MG DELAYED RELEASE TAB PO SCH (09:12)
[2017-11-29] MEDS: SODIUM CHLOR 0.45% 1000 ML INJ 1,000 ML IV SCH ×2 (09:28→22:40)
--- NOTE | 2017-11-29 11:16 | HHI.PR ---
Subjective Remarks awake and alert, no complains no foot pain no reported hematochezia or melena Objective Vitals Vital Signs Date Time Temp Pulse Resp B/P (MAP) Pulse Ox O2 Delivery O2 Flow Rate FiO2 11/29/17 08:00 98.1 57 18 131/60 (83) 94 11/29/17 05:00 54 11/29/17 04:00 98.4 55 18 114/59 (77) 94 11/29/17 02:01 69 11/29/17 00:00 98.1 58 18 119/56 (77) 95 11/28/17 22:05 65 11/28/17 20:00 98.6 73 18 117/58 (77) 96 11/28/17 16:00 98.4 58 17 132/60 (84) 97 11/28/17 14:24 17 11/28/17 12:00 97.8 66 17 116/75 (89) 99 I/O 11/28/17 11/28/17 11/28/17 11/29/17 11/29/17 11/29/17 07:00 15:00 23:00 07:00 15:00 23:00 Intake Total 100 ml 600 ml 480 ml Output Total 500 ml 3 ml 1550 ml 1000 ml Balance -400 ml 597 ml -1070 ml -1000 ml Intake Oral 480 ml IV Total 100 ml Other 600 ml Output Urine Total 500 ml 1550 ml 1000 ml Estimated Blood Loss 3 ml # Voids 3 # Bowel Movements 0 Result Diagram: 11/29/17 0321 11/27/17 0351 Imaging Last Impressions Foot X-Ray 11/28/17 0000 Signed Impressions: Service Date/Time: Tuesday, November 28, 2017 09:41 - CONCLUSION: Interval resection of the proximal middle and distal phalanx of the fourth digit. Meryl Fierro MD Upper Extremity Ultrasound 11/26/17 0000 Signed Impressions: Service Date/Time: November 19:00 - CONCLUSION: No venous thrombosis of either upper extremity. Rubén Mcclure MD Lower Extremity Ultrasound 11/26/17 0000 Signed Impressions: Service Date/Time: November 18:36 - CONCLUSION: No venous thrombosis of either lower extremity. Rubén Mcclure MD Aorta w/Runoff CTA 11/26/17 0000 Signed Impressions: Service Date/Time: November 11:48 - CONCLUSION: 1. Acute occlusive thrombus involving the below-knee popliteal artery and proximal trifurcation vessels on the right. There is reconstitution of the peroneal and posterior tibial artery. 2. 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 3. Otherwise patent inflow, outflow, and runoff bilaterally. 4. 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 -Aorta CTA with runoff showing occlusive thrombus of popliteal artery on the right. -Vascular surgery following. -Podiatry ff -MARY KAY pending. -Angiogram planned for Thursday 11/[address] Bryant. -on heparin drip. -start on broad-spectrum antibiotics including coverage for gram positives, as well as anaerobes. = Sedimentation rate 64. Continue broad-spectrum IV antibiotics. //Microcytic anemia.-Iron deficiency Anemia -Hemoglobin 10, with MCV in the 60s. - on Iron, PPI - GI consulted - - for EGD in am Hypertension- improved - prn IV Vasotec. = 11/27. Blood pressure acceptable. Continue to monitor. //Cocaine abuse. Suspected. Cussed risks of cocaine/crack use. Carrie Ventura MD Nov 29, 2017 11:16
--- NOTE | 2017-11-29 11:30 | HHI.GIFU ---
Subjective Remarks Resting in the bed Clear liquid diet today Discussed again process of colonoscopy, his prep, nothing by mouth at midnight Right foot pain secondary to fourth toe amputation Objective Vitals I&O Vital Signs Date Time Temp Pulse Resp B/P (MAP) Pulse Ox O2 Delivery O2 Flow Rate FiO2 11/29/17 08:00 98.1 57 18 131/60 (83) 94 11/29/17 05:00 54 11/29/17 04:00 98.4 55 18 114/59 (77) 94 11/29/17 02:01 69 11/29/17 00:00 98.1 58 18 119/56 (77) 95 11/28/17 22:05 65 11/28/17 20:00 98.6 73 18 117/58 (77) 96 11/28/17 16:00 98.4 58 17 132/60 (84) 97 11/28/17 14:24 17 11/28/17 12:00 97.8 66 17 116/75 (89) 99 I/O 11/28/17 11/28/17 11/28/17 11/29/17 11/29/17 11/29/17 07:00 15:00 23:00 07:00 15:00 23:00 Intake Total 100 ml 600 ml 480 ml Output Total 500 ml 3 ml 1550 ml 1000 ml Balance -400 ml 597 ml -1070 ml -1000 ml Intake Oral 480 ml IV Total 100 ml Other 600 ml Output Urine Total 500 ml 1550 ml 1000 ml Estimated Blood Loss 3 ml # Voids 3 # Bowel Movements 0 Laboratory Laboratory Tests Test 11/28/17 11:35 11/28/17 18:37 11/29/17 03:21 Activated Partial Thromboplast Time 36.7 32.8 42.7 White Blood Count 11.1 Red Blood Count 4.40 Hemoglobin 9.2 Hematocrit 30.2 Mean Corpuscular Volume 68.5 Mean Corpuscular Hemoglobin 21.0 Mean Corpuscular Hemoglobin Concent 30.6 Red Cell Distribution Width 18.5 Platelet Count 346 Mean Platelet Volume 9.6 Imaging Last Impressions Foot X-Ray 11/28/17 0000 Signed Impressions: Service Date/Time: Tuesday, November 28, 2017 09:41 - CONCLUSION: Interval resection of the proximal middle and distal phalanx of the fourth digit. Meryl Fierro MD Upper Extremity Ultrasound 11/26/17 0000 Signed Impressions: Service Date/Time: November 19:00 - CONCLUSION: No venous thrombosis of either upper extremity. Rubén Mcclure MD Lower Extremity Ultrasound 11/26/17 0000 Signed Impressions: Service Date/Time: November 18:36 - CONCLUSION: No venous thrombosis of either lower extremity. Rubén Mcclure MD Aorta w/Runoff CTA 11/26/17 0000 Signed Impressions: Service Date/Time: November 11:48 - CONCLUSION: 1. Acute occlusive thrombus involving the below-knee popliteal artery and proximal trifurcation vessels on the right. There is reconstitution of the peroneal and posterior tibial artery. 2. 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 3. Otherwise patent inflow, outflow, and runoff bilaterally. 4. 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 Juan Webster Jr., MD Physical Exam HEENT: Pupils round and reactive to light; normocephalic; atraumatic; no jaundice. NECK: Neck is supple, CHEST: Chest without rhonchi CARDIAC: Regular rate and rhythm ABDOMEN: Soft, round, nontender; no hepatosplenomegaly; bowel sounds are present in all four quadrants. EXTREMITIES: Right foot dressing secured, fourth toe amputation on 11/28/17 SKIN: dry. no rash; no jaundice. 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 Assessment and Plan Plan History/Assessment Anemia, iron deficiency. Patient notes weekly Ansaid use and more often for the past couple weeks. This could be chronic in nature, inflammatory. Current hemoglobin 9.2 Bright red blood with BM. Noted to 3 times last one noted last week. Possibly due to hemorrhoids. Recent and previous smoker as well as daily EtOH abuse at least a sixpack a day It is noted in the record patient will need angiogram Thursday. We'll need to correlate scheduling with EGD/colonoscopy Patient may be on anticoagulation after this hospital stay pending vascular needs, he will be high risk for GI bleed especially with possible hemorrhoid bleeding. Start stool softeners, goal is for no straining and monitor rectal bleeding, will check Hemoccults to monitor for any further rectal bleeding PPI due to patient's long history of smoking and alcohol use, and possible drug use. Denies any current nausea, vomiting, Abd. Pain. Bowels normal. 2017 denies any further bright red blood with bowel movement, no nausea no vomiting, no diarrhea Plan Stool softners Iron supplements PPI EGD and colonoscopy for 11/30/17, Discussed plan for Prep. and Procedure Consents to be on chart Prep GoLYTELY to be given Thursday around 4 PM Clear liquids Thursday Nothing by mouth at midnight 11/30/2017 Continue heparin drip for now, off at midnight on 11/30/17, Monitor hemoglobin and labs Call for any acute bleeding episodes Hemoccult stools pending Further recommendations and plan a care will be based on symptoms and patient's needs while in the hospital Patient has been seen by myself and Dr. Olmedo, note is written on his behalf Dotty Hernandez Nov 29, 2017 11:29
[2017-11-29] MEDS ORDERED: PEG (High)/E-LYTE SOLN 4000 ML BTL PO ONE (16:00)
[2017-11-29] MEDS: HEPARIN-D5W 25,000 U/250 ML 250 ML IV PRN (18:04)
--- NOTE | 2017-11-29 21:42 | PD.POD ---
Subjective Podiatric Problems s/p amputation right 4th toe 11/28/17 Dr Dent Complaining of continued pain to entire right lower extremity. Awaiting angio tomorrow with Dr Bryant Past Med/Surg/Social History Social History Smoking Status: Never Smoker Objective Vital Signs Vital Signs Date Time Temp Pulse Resp B/P (MAP) Pulse Ox O2 Delivery O2 Flow Rate FiO2 11/29/17 16:52 55 11/29/17 16:00 98.9 72 18 149/72 (97) 97 11/29/17 12:00 97.8 62 18 144/67 (92) 97 11/29/17 08:00 98.1 57 18 131/60 (83) 94 11/29/17 05:00 54 11/29/17 04:00 98.4 55 18 114/59 (77) 94 11/29/17 02:01 69 11/29/17 00:00 98.1 58 18 119/56 (77) 95 11/28/17 22:05 65 Coded Allergies: No Known Allergies (Verified Allergy, Unknown, 11/26/17) Exam-Podiatry Remarks Dressing clean, dry, intact right foot. Surgical shoe is bedside. Assessment & Plan A/P s/p amputation right 4th toe 11/28/17 Dr Dent Keep dressing clean, dry, intact. May change dressing tomorrow or thursday, then patient may follow up in my clinic in 1 week for next dressing change. No home health needed for dressings for foot. WBAT in surgical shoe right foot. OK to remove surgical shoe when at rest. Darwin Dent DPM Nov 29, 2017 21:42
[2017-11-30] VITALS (7 sets, daily range): BP systolic 125–141; BP diastolic 60–78; PULSE 55–86; RESP 18–20; TEMP 97.6–98.7; O2SAT 95–100
[2017-11-30] MEDS: MORPHINE SULFATE 4 MG/ML INJ IV PUSH PRN ×6 (00:53→21:53)
[2017-11-30] MEDS: ACETAMINOPHEN/HYDROcodone 325 MG/7.5 MG TAB PO PRN ×4 (00:53→16:04)
[2017-11-30] MEDS ORDERED: PHARMACY ORDERED LAB ONE (05:45)
[2017-11-30] MEDS ORDERED: CHLORHEXIDINE GLUCONATE 2 % 1 PACK (2 CLOTHS) TOPICAL PRN (06:15)
[2017-11-30] MEDS ORDERED: SODIUM CHLORID 0.9% 500 ML IV PRN (06:15)
[2017-11-30] MEDS ORDERED: LACTATED RINGER'S 1000 ML IV PRN (06:15)
[2017-11-30] MEDS ORDERED: POVIDONE IODINE 5% (ANTISEPSIS KIT) 4 APPLICATIONS EACH NARE PRN (06:15)
[2017-11-30] MEDS: PIPERACIL-TAZO 3.375 GM PREMIX 50 ML IV SCH ×4 (06:37→23:45)
[2017-11-30] MEDS: VANCOMYCIN INJ 1,250 MG in SODIUM CHLOR 0.9% 250 ML INJ 250 ML IV SCH ×2 (06:37→18:34)
[2017-11-30] MEDS: FERROUS SULFATE 325 MG (65 MG ELEMENTAL IRON) TAB PO SCH ×2 (08:41→21:38)
[2017-11-30] MEDS: DOCUSATE SODIUM 50 MG/SENNA 8.6 MG TAB PO SCH ×2 (08:41→21:38)
[2017-11-30] MEDS: PANTOPRAZOLE SOD 40 MG DELAYED RELEASE TAB PO SCH (08:41)
[2017-11-30] MEDS: SODIUM CHLORIDE 0.9% FLUSH 10 ML FLUSH IV FLUSH SCH ×2 (08:42→21:39)
[2017-11-30] MEDS ORDERED: DO NOT ADM ANY ANTICOAGULANT DRUGS PRN (10:15)
--- NOTE | 2017-11-30 10:41 | PD.PROCEDR ---
GI Procedure PROCEDURE PERFORMED Upper endoscopy with biopsy, colonoscopy with biopsy INDICATION FOR PROCEDURE Anemia Rectal bleeding PROCEDURE: The procedure, risks and benefits were discussed with Mr. Bailey and informed consent was obtained. Anesthesia sedated him with Diprivan. He was placed in the left lateral decubitus position. EGD: The Pentax videoscope was introduced through the oropharynx and advanced to the second portion of the duodenum under direct visualization. Retroflexion was performed in the stomach. Large ulcer in the antrum biopsy was done Colonoscopy: The Pentax videoscope was introduced through the rectum and advanced to cecum which was identified by the ileocecal valve and appendiceal orifice. Retroflexion was performed in the rectum. Colonic prep was fair, she has large vessel in the rectum biopsy ESTIMATED BLOOD LOSS: None SPECIMENS REMOVED: antral biopsy Rectal biopsy COMPLICATIONS: No complication IMPRESSION: Duodenitis Gastric ulcer in the antrum biopsy was done Large ulcer in the rectum biopsy was done Large internal hemorrhoids with small fissure most likely the reason for rectal bleeding PLAN: Await biopsy results Diet as tolerated Follow-up biopsy Upper endoscopy in two-month Flexible sigmoidoscopy in two-month preparation H3 times a day Monitor H&H with packed RBC as needed We'll follow up as needed Jerman Olmedo MD Nov 30, 2017 10:41
--- NOTE | 2017-11-30 10:43 | HHI.GIFU ---
Subjective Remarks Patient laying in bed comfortably, no rectal bleeding, complaining of foot pain , tolerated prep Objective Vitals I&O Vital Signs Date Time Temp Pulse Resp B/P (MAP) Pulse Ox O2 Delivery O2 Flow Rate FiO2 11/30/17 08:10 86 11/30/17 08:00 98.1 71 20 125/68 (87) 97 11/30/17 00:00 98.7 71 18 133/78 (96) 97 11/29/17 20:00 97.8 96 20 151/105 (120) 96 11/29/17 20:00 77 11/29/17 16:52 55 11/29/17 16:00 98.9 72 18 149/72 (97) 97 11/29/17 12:00 97.8 62 18 144/67 (92) 97 I/O 11/29/17 11/29/17 11/29/17 11/30/17 11/30/17 11/30/17 07:00 15:00 23:00 07:00 15:00 23:00 Intake Total 720 ml Output Total 1000 ml 400 ml 1475 ml 1200 ml Balance -1000 ml -400 ml -755 ml -1200 ml Intake Oral 720 ml Output Urine Total 1000 ml 400 ml 1475 ml 1200 ml # Voids 3 # Bowel Movements 0 10 Laboratory Laboratory Tests Test 11/29/17 12:05 11/29/17 18:47 11/30/17 02:04 11/30/17 06:36 Activated Partial Thromboplast Time 36.8 30.9 30.8 Vancomycin Level Trough 14.2 Physical Exam HEENT: Pupils round and reactive to light; normocephalic; atraumatic; no jaundice. NECK: Neck is supple, CHEST: Chest without rhonchi CARDIAC: Regular rate and rhythm ABDOMEN: Soft, round, nontender; no hepatosplenomegaly; bowel sounds are present in all four quadrants. EXTREMITIES: Right foot dressing secured, fourth toe amputation on 11/28/17 SKIN: dry. no rash; no jaundice. 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 Assessment and Plan Plan History/Assessment Anemia, iron deficiency. Patient notes weekly Ansaid use and more often for the past couple weeks. This could be chronic in nature, inflammatory. Current hemoglobin 9.2 Bright red blood with BM. Noted to 3 times last one noted last week. Possibly due to hemorrhoids. Recent and previous smoker as well as daily EtOH abuse at least a sixpack a day It is noted in the record patient will need angiogram Thursday. We'll need to correlate scheduling with EGD/colonoscopy Patient may be on anticoagulation after this hospital stay pending vascular needs, he will be high risk for GI bleed especially with possible hemorrhoid bleeding. Start stool softeners, goal is for no straining and monitor rectal bleeding, will check Hemoccults to monitor for any further rectal bleeding PPI due to patient's long history of smoking and alcohol use, and possible drug use. Denies any current nausea, vomiting, Abd. Pain. Bowels normal. 2017 denies any further bright red blood with bowel movement, no nausea no vomiting, no diarrhea 11/30/2017 no bright red blood per rectum no abdominal pain tolerated it prep IMPRESSION: Duodenitis Gastric ulcer in the antrum biopsy was done Large ulcer in the rectum biopsy was done Large internal hemorrhoids with small fissure most likely the reason for rectal bleeding PLAN: Await biopsy results Diet as tolerated Follow-up biopsy Upper endoscopy in two-month Flexible sigmoidoscopy in two-month preparation H3 times a day Monitor H&H with packed RBC as needed We'll follow up as needed Continue heparin drip for now, off at midnight on 11/30/17, Monitor hemoglobin and labs Call for any acute bleeding episodes Hemoccult stools pending Further recommendations and plan a care will be based on symptoms and patient's needs while in the hospital Patient has been seen by myself and Dr. Olmedo, note is written on his behalf Jerman Olmedo MD Nov 30, 2017 10:43
[2017-11-30] MEDS ORDERED: PETROLEUM/SHARK LIVER OIL/PHENYLEPHRINE 60 GM TUBE RECTAL PRN (10:45)
[2017-11-30] MEDS: SODIUM CHLOR 0.45% 1000 ML INJ 1,000 ML IV SCH (12:00)
[2017-11-30] MEDS ORDERED: LIDOCAINE HCL 1% PF 5 ML SYRINGE OTHER ONE (12:00)
[2017-11-30] MEDS ORDERED: PROPOFOL 200 MG/20 ML AMP IV ONE (12:00)
--- NOTE | 2017-11-30 12:54 | HHI.PR ---
Subjective Remarks mild foot pain, wiggle toes freely - complains of numbness on this foot back from EHD and colonosoocpy- toelrated procedure well admits to taking NSAids latelet a lot for pain Objective Vitals Vital Signs Date Time Temp Pulse Resp B/P (MAP) Pulse Ox O2 Delivery O2 Flow Rate FiO2 11/30/17 12:35 97.6 55 20 141/76 (97) 100 11/30/17 10:50 66 18 147/80 (102) 97 11/30/17 08:10 86 11/30/17 08:00 98.1 71 20 125/68 (87) 97 11/30/17 00:00 98.7 71 18 133/78 (96) 97 11/29/17 20:00 97.8 96 20 151/105 (120) 96 11/29/17 20:00 77 11/29/17 16:52 55 11/29/17 16:00 98.9 72 18 149/72 (97) 97 I/O 11/29/17 11/29/17 11/29/17 11/30/17 11/30/17 11/30/17 07:00 15:00 23:00 07:00 15:00 23:00 Intake Total 720 ml 150 ml Output Total 1000 ml 400 ml 1475 ml 1200 ml Balance -1000 ml -400 ml -755 ml -1200 ml 150 ml Intake Oral 720 ml IV Total 50 ml Other 100 ml Output Urine Total 1000 ml 400 ml 1475 ml 1200 ml # Voids 3 # Bowel Movements 0 10 Result Diagram: 11/29/17 0321 11/27/17 0351 Imaging Last Impressions Foot X-Ray 11/28/17 0000 Signed Impressions: Service Date/Time: Tuesday, November 28, 2017 09:41 - CONCLUSION: Interval resection of the proximal middle and distal phalanx of the fourth digit. Meryl Fierro MD Upper Extremity Ultrasound 11/26/17 0000 Signed Impressions: Service Date/Time: November 19:00 - CONCLUSION: No venous thrombosis of either upper extremity. Rubén Mcclure MD Lower Extremity Ultrasound 11/26/17 0000 Signed Impressions: Service Date/Time: November 18:36 - CONCLUSION: No venous thrombosis of either lower extremity. Rubén Mcclure MD Aorta w/Runoff CTA 11/26/17 0000 Signed Impressions: Service Date/Time: November 11:48 - CONCLUSION: 1. Acute occlusive thrombus involving the below-knee popliteal artery and proximal trifurcation vessels on the right. There is reconstitution of the peroneal and posterior tibial artery. 2. 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 3. Otherwise patent inflow, outflow, and runoff bilaterally. 4. 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 Juan Webster Jr., MD Objective Remarks awake and alert, oriented x 3 anicteric no nuchal rigidity lungs clear regular rhythm abdomen soft, nontender right foot - post op dressing in place, wiggles toes freely, does not feel cool to touch Procedures 11/28 Amputation right 4th toe 11/30- EGD- duonenits, gastric ulcer colonosocpy- rectal ulcer, internal hemorrhoids A/P Assessment and Plan 52 years old male Right Poplliteal artery thrombosis- Necrotic fourth toe wet gangrene Suspected osteomyelitis of distal foot. -Aorta CTA with runoff showing occlusive thrombus of popliteal artery on the right. -Vascular surgery following. -Podiatry ff -Angiogram planned for today - with Dr. Bryant. -on heparin drip.- held for procedure -start on broad-spectrum antibiotics including coverage for gram positives, as well as anaerobes. = Sedimentation rate 64. Continue broad-spectrum IV antibiotics. Microcytic anemia.-Iron deficiency Anemia S/P EGD- duodenitis and gastric ulcers 11/30 S/P colonoscopy-11/30 rectal ulcer -Hemoglobin 10, with MCV in the 60s. - on Iron, PPI - ff biopsy reports Hypertension- improved - prn IV Vasotec. = 11/27. Blood pressure acceptable. Continue to monitor. //Cocaine abuse. Suspected. Cussed risks of cocaine/crack use. Carrie Ventura MD Nov 30, 2017 12:54
[2017-11-30] MEDS: HEPARIN-D5W 25,000 U/250 ML 250 ML IV PRN (13:49)
[2017-11-30] MEDS ORDERED: MIDAZOLAM HCL 2 MG/2 ML VIAL ONE (16:42)
[2017-11-30] MEDS ORDERED: MIDAZOLAM HCL 2 MG/2 ML VIAL IV PUSH ONE (16:46)
--- NOTE | 2017-11-30 17:10 | HHI.PR ---
cc: Martinez Bryant MD; Darwin Dent DPM Immediate Post Op Note Procedure Date: Nov 30, 2017 Pre Op Diagnosis: R LE ischemia Post Op Diagnosis: R LE ischemia Surgeon: Martinez Bryant Cheese Grader(s): none Procedure: Aortogram w/ R LE Angiogram Findings: 1. Occlusion of R popliteal artery and poor opacification of pedal vessels 2. Picture potentially c/w Jamalr's Additional Information: L OCCUPATIONAL HEALTH PHYSIOTHERAPIST sheath removed in OR Complications: none Specimen(s) removed: none Estimated blood loss: 5mL Anesthesia: MAC Drains: None Patient to: Other (DOCU) Patient Condition: Good Date/Time of Procedure: SEE SURGICAL CARE RECORD Martinez Bryant MD Nov 30, 2017 17:09
--- NOTE | 2017-11-30 17:10 | CATHPROC ---
Hive guard unlimited HIS Report Study Information Study Number Admission Scheduled Start Study Start [id number] Nov 26 2017 3:22PM 11/30/2017 Nov 30 2017 4:14PM Bee Service Cath Endovascular Study Admit Source Facility Department Emergency department [facility] - Supervisor [facility] Department Physician and Clinical Staff Initial MD Bryant, Martinez Crime Lab Technician Laisha Garcia,RN Recorder Dhaval Sparks,RT(R) Scrub Cesar George,RT(R) Procedures Performed Procedure Location (Site) Vessel Name Abdominal Angiogram Abd Aorta (A3) Aorta Abdominal Angiogram Popliteal R (R10) Popliteal Abdominal Angiogram SFA (right) Femoral Art Abdominal Angiogram Tib, Ant. (right) Popliteal Abdominal Angiogram Tib, Post (right) Popliteal Equipment Time Automation Operator Description Size Mfg Part Number Used/Scraped [id number] 16:17 ANGIO-DYNAMICS OMNI FLUSH 65CM CATHETER FR 4 Used *[id number] INTRODUCER SET, 16:17 [employer] FR 5 [id number] *[id number] Used MICROPUNCTURE, STIFFENED [id number] 16:17 [employer] PACK, CCL CUSTOM * Used *[id number] 16:17 [employer]ee MEDICAL PRESSURE TUBING 48" 48" [id number] Used [id number] 16:17 NAMIC TUBING, HIGH PRESSURE 20" 20" Used *[id number] TUBING, PRESSURE MONITORING [id number] 16:17 NAMIC PACER 72" Used 72" *[id number] 16:17 [employer]COM[employer] OMNIPAQUE, 300 MG, 150ML 150ML [id number] Used 16:17 [employer] OMNIPAQUE, 300 MG, 50ML 50ML [id number] Used [id number] 16:17 [employer] MEDICAL BLANKET,WARM AIR CCL * Used *[id number] 16:17 TERUMO MEDICAL SHEATH, FR4 TERUMO (10CM) FR 4 Used *[id number] 16:17 [employer] MEDICAL SHEATH, FR4 TERUMO (10CM) FR 4 Used *[id number] WIRE, ANGLED GLIDE .035 [id number] 16:17 TERUMO MEDICAL/GONZALO 260CM Used 260CM *[id number] History: Allergies Allergy Reaction No Known Allergies History: Risk Factors Family History of Hypertension Dyslipidemia Previous MO Previous Heart Failure Premature CAD No No No No No Prior Valve Prior PCI Prior CABG Surgery No No No Cerebrovascular Peripheral Artery Chronic Lung On Dialysis Diabetes Disease Disease Disease No No No No No History: Stress Tests Stress or Imaging Studies Performed No History: Other Current Smoker Method Packs a Day Years Used Pack Years Yes Cigarettes 1 30 30 Labs Hgb (g/dl) Hct (%) RBC (MIL/MM3) WBC (l/cumm) Platelets (thousands) 11.60-17.00 35.00-51.00 4.00-5.90 4.00-11.00 150.00-450.00 9.2 30.2 4.4 11.1 346 Glucose (mg/dl) BUN (mg/dl) Creatinine (mg/dl) BUN:Creatinine (1:x) 74.00-106.00 7.00-18.00 0.50-1.30 10.00-20.00 111 10 1.0 10 Na (meq/l) K (meq/l) Cl (meq/l) CO2 (mmol/L) Ca (mg/dl) 136.00-145.00 3.50-5.10 98.00-107.00 21.00-32.00 8.50-10.10 138 3.5 103 26.9 8.8 INR (PTT:PT) 0.90-1.10 1.1 CPK-MB (ng/ML) 0.50-3.60 Not Drawn Medication Medication Total Dose (Bolus/Oral) Medication Total Dosage/Unit 1% XYLOCAINE 20 mL FENTANYL 50 mcg OXYGEN 2 l/min VERSED 2 mg Medications (Bolus/Oral) Medication Time Given Dosage/Unit Administered By Reason 1% XYLOCAINE 11/30/2017 4:45:27 PM 20 mL Martinez Bryant 20 mL 1% XYLOCAINE given in lab by Martinez Bryant in Left Groin via Subcutaneous. VERSED 11/30/2017 4:45:34 PM 2 mg Laisha Garcia 2 mg VERSED given in lab by Laisha Garcia, JOHNNY in Right Forearm via Peripheral IV. FENTANYL 11/30/2017 4:45:49 PM 50 mcg Laisha Garcia 50 mcg FENTANYL given in lab by Laisha Garcia, JOHNNY in Right Forearm via Peripheral IV. OXYGEN 11/30/2017 4:50:25 PM 2 l/min Laisha Garcia 2 l/min OXYGEN given in lab by Laisha Garcia, JOHNNY via Nasal. Medication (Drip) Medication Time Given Dosage/Unit Concentration/Unit Diluent (ml) Solution IV Solutions 11/30/2017 4:30:03 PM 0 mL (IV) 500 NaCl .9 IV Solutions given in lab by Laisha Garcia RN in Right Forearm via Peripheral IV. Pump/Drip Flow = 20 ml/hr using NaCl .9. Initial Case Assessment Cardiovascular HR Rhythm NIBP Chest Pain 67 Sinus 156/78 0 Edema Present Skin color Skin None Normal Warm Dry Circulatory - Right Pulses Dorsalis Pedis Femoral 0 2 Scale (0,1,2,3,4,d) Circulatory - Left Pulses Dorsalis Pedis Femoral 0 2 Scale (0,1,2,3,4,d) Neurological State Oriented to time-place- Alert Moves all extremities person Respiration - General Respiration Rate SpO2 (%) O2 (lpm) (B/min) 10 100 0 Final Case Assessment Cardiovascular HR Rhythm NIBP Chest Pain 59 Sinus 151/89 0 Edema Present Skin color Skin None Normal Warm Dry Circulatory - Right Pulses Dorsalis Pedis Femoral 0 2 Scale (0,1,2,3,4,d) Circulatory - Left Pulses Dorsalis Pedis Femoral 0 2 Scale (0,1,2,3,4,d) Neurological State Oriented to time-place- Alert Moves all extremities person Respiration - General Respiration Rate SpO2 (%) O2 (lpm) (B/min) 16 99 2 Chronological Log Time Study Chronological Log 16:29:47 Patient arrived via Bed. 16:29:48 Patient Name, D.O.B, / Armband Verified By R.N. 16:29:49 Consent signed by the physician and the patient and verified by the Supervisor [facility] Department staff. 16:29:50 Pre-op and post- op instructions given; patient acknowledges understanding of instructions. 16:29:50 Verbal Stimulation=2 Physical Stimulation=2 Airway=2 Respiration=2 TOTAL=8. (0=absent, 1=li mited, 2=present) 16:29:52 Presedation assessment performed by Supervisor [employer] Department RN. 16:29:56 Patient has been NPO for More than 6Hrs. 16:29:57 Skin Breakdown- none per patient. 16:29:58 Patient Warmer Placed on the Table. 16:29:59 Diaz Prominences Protected 16:30:01 A # 22 IV was noted in the Forearm (right). Grade = 0 IV Solutions given in lab by Laisha Garcia, RN in Right Forearm via Peripheral IV. Pump/Drip Flow = 20 ml/hr using 16:30:03 NaCl .9. 16:30:04 History and physical on the chart or being dictated. Assessment: Initial Case, HR=67 BPM, Rhythm=Sinus, QQLB=492/78 mmhg, Chest Pain=0, Edema=None, Color=Normal, Skin = Warm, Dry Right Pulses: Nigel Ped=0, Femoral=2 16:30:05 Left Pulses: Nigel Ped=0, Femoral=2 Neurological: State=Alert, Ox3, CONTRERAS Respiration: Resp=10 B/min, GxT0=486 %, O2=0 lpm 16:31:16 MD arrived. Vitals capture started with the following parameters, Patient=Adult, Interval=5 min, Initial Pr poqvdj=079 mmHg, 16:35:09 Deflation Rate=5 mmHg, Cuff placed on Right Arm 16:36:21 HR=59 bpm, IAOH=144/78 mmhg, EtP3=741.0 %, Resp=8 B/min, Pain=0, Seema=10, Vilchis=2 16:40:46 HR=68 bpm, ZSCH=739/86 mmhg, YnU5=292.0 %, Resp=7 B/min, Pain=0, Seema=10, Vilchis=2 16:41:31 Bilateral groins prepped with 2% chlorhexidine, and draped after a 3 minute waiting time. 16:44:28 Reference ECG taken Time Out. Correct patient, correct procedure, correct physician, power injector loaded, or not loaded with contrast with 16:45:25 surgical team present. Time Out Concurred by MD and individual staff in procedure. 16:45:26 Case Start 16:45:27 20 mL 1% XYLOCAINE given in lab by Martinez Bryant in Left Groin via Subcutaneous. 16:45:28 Access site was Left Femoral Artery. 16:45:30 A SHEATH, FR4 TERUMO (10CM) FR 4 was advanced into the Fem Art (left) using the Percutaneou s technique. 16:45:34 2 mg VERSED given in lab by Laisha Garcia, RN in Right Forearm via Peripheral IV. 16:45:41 HR=71 bpm, WHFU=752/93 mmhg, OwR7=087.0 %, Resp=8 B/min, Pain=0, Seema=10, Vilchis=2 16:45:49 50 mcg FENTANYL given in lab by Laisha Garcia, JOHNNY in Right Forearm via Peripheral IV. A OMNI FLUSH 65CM CATHETER FR 4 was advanced over a wire. OMNIPAQUE, 300 MG, 50ML 50ML was used for 16:47:04 injections. 16:47:53 Through a OMNI FLUSH 65CM CATHETER FR 4, The Abdominal Aorta was injected with 10 cc's of c ontrast. 16:50:25 2 l/min OXYGEN given in lab by Laisha Garcia, JOHNNY via Nasal. 16:50:46 HR=57 bpm, GRPP=038/75 mmhg, SpO2=94.0 %, Resp=4 B/min, Pain=0, Seema=10, Vilchis=2 16:51:20 Through a OMNI FLUSH 65CM CATHETER FR 4, The Abdominal Aorta was injected with 4 cc's of co ntrast. 16:51:38 Through a OMNI FLUSH 65CM CATHETER FR 4, The Abdominal Aorta was injected with 4 cc's of co ntrast. 16:51:43 Through a OMNI FLUSH 65CM CATHETER FR 4, The Abdominal Aorta was injected with 4 cc's of co ntrast. 16:52:37 Through a OMNI FLUSH 65CM CATHETER FR 4, The Abdominal Aorta was injected with 4 cc's of co ntrast. 16:53:35 Through a OMNI FLUSH 65CM CATHETER FR 4, The Abdominal Aorta was injected with 4 cc's of co ntrast. 16:56:26 HR=56 bpm, BIRN=094/78 mmhg, SpO2=99.0 %, Resp=8 B/min, Pain=0, Seema=10, Vilchis=2 16:57:24 Catheter was removed 16:57:29 Case End 16:58:45 Sheath removed; pressure applied to access site. 16:58:56 No case complications noted. 16:58:57 Cine recording checked. 16:59:42 Bedside Report will be given. Assessment: Final Case, HR=59 BPM, Rhythm=Sinus, YQEH=269/89 mmhg, Chest Pain=0, Edema=None, Color=Normal, Skin = Warm, Dry Right Pulses: Nigel Ped=0, Femoral=2 16:59:50 Left Pulses: Nigel Ped=0, Femoral=2 Neurological: State=Alert, Ox3, CONTRERAS Respiration: Resp=16 B/min, SpO2=99 %, O2=2 lpm 17:00:48 HR=60 bpm, QRMJ=644/89 mmhg, ErG0=556.0 %, Resp=15 B/min, Pain=0, Seema=10, Vilchis=2 17:05:45 HR=62 bpm, OODY=812/90 mmhg, SpO2=99.0 %, Resp=9 B/min, Pain=0, Seema=10, Vilchis=2 17:09:07 Sterile dressing applied to site 17:12:27 Patient moved to stretcher End Study - Contrast Media Used In Study Contrast Total Opened (mL) Total Used (mL) Total Wasted (mL) Omnipaque 200 40 160 End Study - Maximum Contrast Load Max Contrast Load (mL) 345.5 End Study - Radiation Exposure Fluoro Time (minutes) 1.1 End Study - Patient Disposition Complications Transferred To Interventional Outcome No Telemetry Bed No attempt made
--- NOTE | 2017-11-30 17:30 | PD.POD ---
Subjective Podiatric Problems Attempted to see pt today- was in OR with - will check back later in the week. Past Med/Surg/Social History Social History Smoking Status: Never Smoker Objective Vital Signs Vital Signs Date Time Temp Pulse Resp B/P (MAP) Pulse Ox O2 Delivery O2 Flow Rate FiO2 11/30/17 12:35 97.6 55 20 141/76 (97) 100 11/30/17 12:25 60 11/30/17 10:50 66 18 147/80 (102) 97 11/30/17 08:10 86 11/30/17 08:00 98.1 71 20 125/68 (87) 97 11/30/17 00:00 98.7 71 18 133/78 (96) 97 11/29/17 20:00 97.8 96 20 151/105 (120) 96 11/29/17 20:00 77 Coded Allergies: No Known Allergies (Verified Allergy, Unknown, 11/26/17) Isatu Winchester DPM Nov 30, 2017 17:30
[2017-11-30] MEDS ORDERED: IOHEXOL 350 MG/ML 50 ML BTL (for Cath Lab) OTHER ONE (17:34)
[2017-11-30] MEDS: HEPARIN SODIUM - IV 10,000 UNITS/10 ML VIAL IV PRN (21:38)
[2017-12-01] VITALS (10 sets, daily range): BP systolic 110–127; BP diastolic 55–72; PULSE 55–86; RESP 17–20; TEMP 97.8–99.1; O2SAT 94–100
[2017-12-01] MEDS: ACETAMINOPHEN/HYDROcodone 325 MG/7.5 MG TAB PO PRN ×6 (01:19→23:41)
[2017-12-01] MEDS: HEPARIN-D5W 25,000 U/250 ML 250 ML IV PRN ×2 (01:48→15:02)
[2017-12-01] MEDS: MORPHINE SULFATE 4 MG/ML INJ IV PUSH PRN ×5 (02:38→20:26)
[2017-12-01] MEDS: PIPERACIL-TAZO 3.375 GM PREMIX 50 ML IV SCH ×4 (05:23→23:44)
[2017-12-01] MEDS: VANCOMYCIN INJ 1,250 MG in SODIUM CHLOR 0.9% 250 ML INJ 250 ML IV SCH ×2 (07:06→18:25)
[2017-12-01] MEDS: DOCUSATE SODIUM 50 MG/SENNA 8.6 MG TAB PO SCH ×2 (07:58→20:19)
[2017-12-01] MEDS: FERROUS SULFATE 325 MG (65 MG ELEMENTAL IRON) TAB PO SCH ×2 (07:59→20:20)
[2017-12-01] MEDS: SODIUM CHLORIDE 0.9% FLUSH 10 ML FLUSH IV FLUSH SCH ×2 (07:59→23:46)
[2017-12-01] MEDS: PANTOPRAZOLE SOD 40 MG DELAYED RELEASE TAB PO SCH (07:59)
--- NOTE | 2017-12-01 09:31 | HHI.PR ---
Subjective Remarks awake and alert no complains of foot pain good po Objective Vitals Vital Signs Date Time Temp Pulse Resp B/P (MAP) Pulse Ox O2 Delivery O2 Flow Rate FiO2 12/01/17 08:46 98.0 55 20 122/55 (77) 94 12/01/17 05:02 99.1 55 17 127/64 (85) 95 12/01/17 00:00 98.8 86 18 110/55 (73) 95 11/30/17 20:00 97.9 73 18 129/60 (83) 95 11/30/17 17:58 99 21 11/30/17 17:33 100 Room Air 11/30/17 12:35 97.6 55 20 141/76 (97) 100 11/30/17 12:25 60 11/30/17 10:50 66 18 147/80 (102) 97 I/O 11/30/17 11/30/17 11/30/17 12/01/17 12/01/17 12/01/17 07:00 15:00 23:00 07:00 15:00 23:00 Intake Total 150 ml 50 ml 240 ml Output Total 1200 ml 1200 ml Balance -1200 ml 150 ml 50 ml -960 ml Intake Oral 240 ml IV Total 50 ml 50 ml Other 100 ml Output Urine Total 1200 ml 1200 ml # Bowel Movements 10 2 Result Diagram: 11/29/17 0321 11/27/17 0351 Imaging Last Impressions Foot X-Ray 11/28/17 0000 Signed Impressions: Service Date/Time: Tuesday, November 28, 2017 09:41 - CONCLUSION: Interval resection of the proximal middle and distal phalanx of the fourth digit. Meryl Fierro MD Upper Extremity Ultrasound 11/26/17 0000 Signed Impressions: Service Date/Time: November 19:00 - CONCLUSION: No venous thrombosis of either upper extremity. Rubén Mcclure MD Lower Extremity Ultrasound 11/26/17 0000 Signed Impressions: Service Date/Time: November 18:36 - CONCLUSION: No venous thrombosis of either lower extremity. Rubén Mcclure MD Aorta w/Runoff CTA 11/26/17 0000 Signed Impressions: Service Date/Time: November 11:48 - CONCLUSION: 1. Acute occlusive thrombus involving the below-knee popliteal artery and proximal trifurcation vessels on the right. There is reconstitution of the peroneal and posterior tibial artery. 2. 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 3. Otherwise patent inflow, outflow, and runoff bilaterally. 4. 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 Juan Webster Jr., MD Objective Remarks awake and alert, oriented x 3 anicteric no nuchal rigidity lungs clear regular rhythm abdomen soft, nontender right foot - post op dressing in place, wiggles toes freely, toes warm to touch left groin- no hematoma - ++ peripheral pulses Procedures 11/28 Amputation right 4th toe 11/30- EGD- duonenits, gastric ulcer colonosocpy- rectal ulcer, internal hemorrhoids 11/30 Aortogram w/ R LE Angiogram Findings: 1. Occlusion of R popliteal artery and poor opacification of pedal vessels 2. Picture potentially c/w Patric's A/P Assessment and Plan 52 years old male Acute PAD with Right Poplliteal artery thrombosis- Necrotic fourth toe wet gangrene Suspected osteomyelitis of distal foot. -Aorta CTA with runoff showing occlusive thrombus of popliteal artery on the right. - S/P angiogram- 11/30 -start on broad-spectrum antibiotics including coverage for gram positives, as well as anaerobes. = Sedimentation rate 64. Continue broad-spectrum IV antibiotics. - on Heparin drip-per Vascular - Dr. Bryant ff closely along with us - Podiatry ff - PT- consult- weightbearing as tolerated Microcytic anemia.-Iron deficiency Anemia S/P EGD- duodenitis and gastric ulcers 11/30 S/P colonoscopy-11/30 rectal ulcer -Hemoglobin 10, with MCV in the 60s. - was taking NSAid for pain- advise - no NSAIds - on Iron, PPI - ff biopsy reports Hypertension- improved - prn IV Vasotec. = 11/27. Blood pressure acceptable. Continue to monitor. //Cocaine abuse. Suspected. Cussed risks of cocaine/crack use. PT daily CM consult for DC planning Carrie Ventura MD Dec 01, 2017 09:31
--- NOTE | 2017-12-01 10:10 | MP ---
cc: BIGGDENISBRAYAN DPIra DATE OF SURGERY 11/28/2017 DATE OF 1965 INDICATIONS This patient presented to the emergency department with worsening pain to the right foot. He was noted to have gangrenous changes to the right fourth digit, as well as an ischemic foot with continued pain. He is scheduled for angiogram on Thursday with Dr. Bryant and podiatry was consulted to evaluate the patient for right fourth toe amputation. The patient had a discussion with me regarding his toe and that we will take the necrotic tissue off in anticipation of regaining hopefully some increased blood flow to the right foot and that the viability of his foot is still and will remain uncertain until after Mondays procedure and there is a chance that he may need more surgery in the future based on his ability to heal or not. The patient understood the risks, benefits, potential complications and agreed to undergo surgery for right fourth toe amputation. He was seen in preop holding by myself, nursing staff and Anesthesia where the correct patient, site and side were all confirmed to be correct in the right fourth toe. He was then taken to surgical suite in the supine position. The right foot was prepped and draped in normal sterile fashion followed by attention directed the right fourth toe. After timeouts were performed as per hospital protocol, the right fourth toe was removed using two semi elliptical incisions medially and laterally to encompass the fourth digit and amputate it in disarticulation at the fourth metatarsophalangeal joint. Minimal bleeding was noted. There was healthy white cartilage cap noted to the fourth metatarsal head area and no tourniquet was utilized while the patient remained on a heparin drip. The area was copiously irrigated followed by primary closure with 2-0 nylon, followed by a dressing consisting of Xeroform, 4x4s, cast padding and Edward was no compression to the right foot. The patient tolerated procedure and anesthesia well and was taken to PACU with vital signs stable and vascular status intact to the remainder of the right foot. He will be weightbearing as tolerated in a surgical shoe right foot and follow up in the clinic in one week for a dressing change and he is scheduled for angio with Dr. Bryant on Thursday. Short operative note. SURGEON Whitley Dent MD MACHINE SETTER SUPERVISOR Staff PREOPERATIVE DIAGNOSIS Gangrene right fourth toe. POSTOPERATIVE DIAGNOSIS Gangrene right fourth toe. PROCEDURE Amputation right fourth toe. COMPLICATIONS None SPECIMEN Right fourth toe to pathology. ESTIMATED BLOOD LOSS Minimal ANESTHESIA MAC with local consisting of 10 mL of 0.5% Marcaine plain. TOURNIQUET TIME No tourniquet utilized. CONDITION Stable to PACU. DISPOSITION Weightbearing as tolerated, surgical shoe right foot. Will assess viability of the toe along the way. Brayan SKINNER /2:50 PM /10:00 AM
--- NOTE | 2017-12-01 11:23 | HHI.GIFU ---
Subjective Remarks Pt sitting in chair. No GI complaints, no bleeding. Eating ok. (Aliza Moore) Objective Vitals I&O Vital Signs Date Time Temp Pulse Resp B/P (MAP) Pulse Ox O2 Delivery O2 Flow Rate FiO2 12/01/17 09:42 94 12/01/17 09:32 58 12/01/17 08:46 98.0 55 20 122/55 (77) 94 12/01/17 05:02 99.1 55 17 127/64 (85) 95 12/01/17 00:00 98.8 86 18 110/55 (73) 95 11/30/17 20:00 97.9 73 18 129/60 (83) 95 11/30/17 17:58 99 21 11/30/17 17:33 100 Room Air 11/30/17 12:35 97.6 55 20 141/76 (97) 100 11/30/17 12:25 60 I/O 11/30/17 11/30/17 11/30/17 12/01/17 12/01/17 12/01/17 07:00 15:00 23:00 07:00 15:00 23:00 Intake Total 150 ml 50 ml 240 ml 177 ml Output Total 1200 ml 1200 ml Balance -1200 ml 150 ml 50 ml -960 ml 177 ml Intake Oral 240 ml IV Total 50 ml 50 ml 177 ml Other 100 ml Output Urine Total 1200 ml 1200 ml # Bowel Movements 10 2 Laboratory Laboratory Tests Test 11/30/17 20:49 12/01/17 03:24 Activated Partial Thromboplast Time 35.9 47.8 Imaging Last Impressions Foot X-Ray 11/28/17 0000 Signed Impressions: Service Date/Time: Tuesday, November 28, 2017 09:41 - CONCLUSION: Interval resection of the proximal middle and distal phalanx of the fourth digit. Meryl Fierro MD Upper Extremity Ultrasound 11/26/17 0000 Signed Impressions: Service Date/Time: November 19:00 - CONCLUSION: No venous thrombosis of either upper extremity. Rubén Mcclure MD Lower Extremity Ultrasound 11/26/17 0000 Signed Impressions: Service Date/Time: November 18:36 - CONCLUSION: No venous thrombosis of either lower extremity. Rubén Mcclure MD Aorta w/Runoff CTA 11/26/17 0000 Signed Impressions: Service Date/Time: November 11:48 - CONCLUSION: 1. Acute occlusive thrombus involving the below-knee popliteal artery and proximal trifurcation vessels on the right. There is reconstitution of the peroneal and posterior tibial artery. 2. 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 3. Otherwise patent inflow, outflow, and runoff bilaterally. 4. 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 Juan Webster Jr., MD Physical Exam HEENT: PERRL; normocephalic; atraumatic; no jaundice. CHEST: CTA CARDIAC: RRR ABDOMEN: Soft, round, nontender; no hepatosplenomegaly; bowel sounds are present in all four quadrants. EXTREMITIES: Right foot dressing secured, fourth toe absent SKIN: dry. no rash; no jaundice. GENERAL CLERK: AOX3 (Aliza Moore) Assessment and Plan Plan History/Assessment Anemia, iron deficiency. Patient notes weekly Ansaid use and more often for the past couple weeks. This could be chronic in nature, inflammatory. Current hemoglobin 9.2 Bright red blood with BM. Noted to 3 times last one noted last week. Possibly due to hemorrhoids. Recent and previous smoker as well as daily EtOH abuse at least a sixpack a day It is noted in the record patient will need angiogram Thursday. We'll need to correlate scheduling with EGD/colonoscopy Patient may be on anticoagulation after this hospital stay pending vascular needs, he will be high risk for GI bleed especially with possible hemorrhoid bleeding. Start stool softeners, goal is for no straining and monitor rectal bleeding, will check Hemoccults to monitor for any further rectal bleeding PPI due to patient's long history of smoking and alcohol use, and possible drug use. Denies any current nausea, vomiting, Abd. Pain. Bowels normal. 2017 denies any further bright red blood with bowel movement, no nausea no vomiting, no diarrhea 11/30/2017 no bright red blood per rectum no abdominal pain tolerated it prep, IMPRESSION: Duodenitis, Gastric ulcer in the antrum biopsy was done, Large ulcer in the rectum biopsy was done Large internal hemorrhoids with small fissure most likely the reason for rectal bleeding 12/01/17 doing well, eating ok. No further bleeding. d/w him procedure findings and using prep H. no labs today. PLAN: Await biopsy results LILO Follow-up biopsy EGD & flex sig in 2m preparation H3 times a day Monitor H&H with packed RBC as needed Monitor labs Notify GI of active bleedings supportive care Patient has been seen by myself and Dr. Olmedo, note is written on his behalf (Aliza Moore) Plan o active bleeding, agree with above note. monitor H/H we will FU as needed, continue PPI (Jerman Olmedo MD) Aliza Moore Dec 01, 2017 11:23 Jerman Olmedo MD Dec 01, 2017 11:56
[2017-12-01 11:45] LABS: AUTOMATED NEUTROPHIL # 7.3 TH/MM3 (1.8-7.7); BASOPHIL # 0.1 TH/MM3 (0-0.2); BASOPHIL % 0.9 % (0.0-2.0); EOSINOPHIL # 0.8 TH/MM3 (0-0.4); HEMATOCRIT 30.4 % (39.0-51.0); HEMOGLOBIN 9.4 GM/DL (13.0-17.0); LYMPH % 7.2 % (9.0-44.0); LYMPHOCYTE # 0.7 TH/MM3 (1.0-4.8); MEAN CELL VOLUME 69.6 FL (80.0-100.0); MEAN CORPUSCULAR HEMOGLOBIN 21.5 PG (27.0-34.0); MEAN CORPUSCULAR HGB CONC 30.8 % (32.0-36.0); MEAN PLATELET VOLUME 10.4 FL (7.0-11.0); MONO % 8.8 % (0.0-8.0); MONOCYTE # 0.9 TH/MM3 (0-0.9); NEUT % 75.1 % (16.0-70.0); PLATELET COUNT 363 TH/MM3 (150-450); RED BLOOD COUNT 4.36 MIL/MM3 (4.50-5.90); RED CELL DISTRIBUTION WIDTH 18.4 % (11.6-17.2); WHITE BLOOD COUNT 9.7 TH/MM3 (4.0-11.0)
--- NOTE | 2017-12-01 12:07 | PD.VS.PN ---
Subjective POD #: 1 Procedure(s): Aortogram w/ R LE Angiogram Subjective/Hospital Course Pt sitting in chair Post operative dressing to R foot I/C/D Right foot less edematous LE warm w/ motor intact (Susie Stahl) Objective Vitals/I&O Date Time Temp Pulse Resp B/P (MAP) Pulse Ox O2 Delivery O2 Flow Rate FiO2 12/01/17 09:42 94 12/01/17 09:32 58 12/01/17 08:46 98.0 55 20 122/55 (77) 94 12/01/17 05:02 99.1 55 17 127/64 (85) 95 12/01/17 00:00 98.8 86 18 110/55 (73) 95 11/30/17 20:00 97.9 73 18 129/60 (83) 95 11/30/17 17:58 99 21 11/30/17 17:33 100 Room Air 11/30/17 12:35 97.6 55 20 141/76 (97) 100 11/30/17 12:25 60 12/01/17 12/01/17 12/01/17 07:00 15:00 23:00 Intake Total 240 ml 227 ml Output Total 1200 ml Balance -960 ml 227 ml Exam: GENERAL: A&Ox3 NAD GCS15 SKIN: Post operative dressing to R foot I/C/D LE warm and dry w/ motor intact Left groin soft w/o hematoma or swelling GASTROINTESTINAL: Abdomen soft, non-tender, nondistended. MUSCULOSKELETAL: No cyanosis, or edema. NON palpable R DP/PT Monophasic R PT heard via Doppler Faint Monophasic R DP heard via Doppler Laboratory Laboratory Tests Test 11/30/17 20:49 12/01/17 03:24 12/01/17 11:24 Activated Partial Thromboplast Time 35.9 47.8 White Blood Count 9.7 Red Blood Count 4.36 Hemoglobin 9.4 Hematocrit 30.4 Mean Corpuscular Volume 69.6 Mean Corpuscular Hemoglobin 21.5 Mean Corpuscular Hemoglobin Concent 30.8 Red Cell Distribution Width 18.4 Platelet Count 363 Mean Platelet Volume 10.4 Neutrophils (%) (Auto) 75.1 Lymphocytes (%) (Auto) 7.2 Monocytes (%) (Auto) 8.8 Eosinophils (%) (Auto) 8.0 Basophils (%) (Auto) 0.9 Neutrophils # (Auto) 7.3 Lymphocytes # (Auto) 0.7 Monocytes # (Auto) 0.9 Eosinophils # (Auto) 0.8 Basophils # (Auto) 0.1 CBC Comment DIFF FINAL Differential Comment (Susie Stahl) Assessment and Plan Assessment: (1) Popliteal artery thrombosis (2) Ischemic rest pain of lower extremity Plan Pt s/p R LE angiogram Pt w/ an occlusion of the RIGHT popliteal artery and poor opacification of pedal vessels Picture potentially c/w Buerger's LE warm w/ motor intact Will follow up in our out pt clinic in 2W, if wound healing becomes stagnate will consider a R LE distal bypass Plan Continue PT/OOB/Ambulation Pt clear for D/C from a vascular stand point Will arrange out pt follow up in 2W w/ a surveillance MARY KAY/ R LE arterial duplex Susie Stahl NP [facility]/[place] [phone] Discharge Planning Arranging out pt f/u Pt clear for d/c from a vascular stand point (Susie Stahl) Discharge Planning Angiogram yesterday showed popliteal occlusion and no tibial reconstitution. If toe amputation site heals, no further intervention needed. If toe amputation site doesn't heal, will attempt aggressive endovascular salvage. Can be f/u as an outpatient. Ok to d/c on statin and antiplatelet therapy. Will arrange f/u 1 week. Martinez Bryant MD FACS RPVI otolaryngology nurse [facility] at [facility] [phone] (Martinez Bryant MD) Susie Stahl Dec 01, 2017 12:07 Martinez Bryant MD Dec 01, 2017 12:46
[2017-12-01 12:15] LABS: BICARBONATE 27.5 MEQ/L (21.0-32.0); CALCIUM 9.3 MG/DL (8.5-10.1); CREATININE 1.1 MG/DL (0.60-1.30)
[2017-12-01] MEDS: HEPARIN SODIUM - IV 10,000 UNITS/10 ML VIAL IV PRN (20:18)
--- NOTE | 2017-12-01 22:24 | MP ---
cc: MODESTA BRYANT DATE OF SURGERY: 11/30/2017 PREOPERATIVE DIAGNOSIS: Right extremity ischemia. POSTOPERATIVE DIAGNOSIS: Right extremity ischemia. PROCEDURE Aortogram with right extremity angiogram. MEDICATIONS Modesta Bryant MD. ANESTHESIA Local with sedation INDICATIONS Mr. Bailey is a 52-year-old gentleman who presented to the emergency department with several weeks right lower extremity pain and dane gangrene of his digits. This was indicated by podiatry and he was taken to the operating room for angiographic evaluation and treatment of the vascular, as the patient has no palpable heel pulses. There was no prior catheter-based imaging available for my review. DESCRIPTION OF PROCEDURE Informed consent was obtained from the patient and he was taken to the operating room and placed supine on the operating room table. An appropriate timeout was taken to ensure the patient's identity, operative site and planned procedure. The administration of antibiotics was not necessary as this is a clean procedure without any planned implantation of any foreign objects. Everyone in the room agreed with the timeout and we proceeded. His bilateral groin was prepped and draped. The left groin was anesthetize with 1% lidocaine. A 21 gauge micropuncture needle was used to access the left common femoral artery. This was exchanged using Seldinger technique with micropuncture sheath through which a 0.035 Glidewire was introduced. The micropuncture sheath was exchanged for a 4-Romansh sheath. A pigtail catheter was placed over the wire into the sheath and aortogram pelvic arteriogram was obtained. The Glidewire was reintroduced and navigated down to the right common femoral artery. The pigtail catheter advanced over this and a right extremity arteriograms obtained. Wire catheter and sheath were then removed. Manual pressure held for hemostasis. There were no complications. I was present and scrubbed throughout the entire procedure. INTERPRETATION: The patient has a patent infrarenal aorta, patent common iliac arteries and the left hypogastric artery is occluded. The right hypogastric artery is patent. The iliac arteries were patent. Of note, there is a pelvic kidney emanating from the terminal aorta. The right common femoral artery is patent, the profunda is patent. The SFA is patent, the popliteal artery has an abrupt occlusion in the mid popliteal artery with well formed perigeniculate collaterals. There is no tibial vessels that reconstitutes distal to the popliteal occlusion. The patient has a serpentine-like pattern of his tibial vessels that is suggestive of a potential Buerger's phenomenon. MD DANAE Mei/EAGLE /7:16 PM /9:58 PM
[2017-12-02] VITALS: BP 122/73; PULSE 72; RESP 21; TEMP 97.9; O2SAT 98
[2017-12-02] MEDS: MORPHINE SULFATE 4 MG/ML INJ IV PUSH PRN ×4 (00:44→14:17)
[2017-12-02 04:00] VITALS: BP 118/61; PULSE 55; RESP 18; TEMP 97.8; O2SAT 97
[2017-12-02 04:01] LABS: HEMATOCRIT 29.8 % (39.0-51.0); HEMOGLOBIN 9.4 GM/DL (13.0-17.0); MEAN CELL VOLUME 68.9 FL (80.0-100.0); MEAN CORPUSCULAR HEMOGLOBIN 21.7 PG (27.0-34.0); MEAN CORPUSCULAR HGB CONC 31.4 % (32.0-36.0); MEAN PLATELET VOLUME 10.4 FL (7.0-11.0); PLATELET COUNT 342 TH/MM3 (150-450); RED BLOOD COUNT 4.32 MIL/MM3 (4.50-5.90); RED CELL DISTRIBUTION WIDTH 18.7 % (11.6-17.2); WHITE BLOOD COUNT 9.4 TH/MM3 (4.0-11.0)
[2017-12-02] MEDS: ACETAMINOPHEN/HYDROcodone 325 MG/7.5 MG TAB PO PRN ×3 (04:30→13:36)
[2017-12-02] MEDS: PIPERACIL-TAZO 3.375 GM PREMIX 50 ML IV SCH ×2 (04:31→10:55)
[2017-12-02] MEDS: VANCOMYCIN INJ 1,250 MG in SODIUM CHLOR 0.9% 250 ML INJ 250 ML IV SCH (05:35)
[2017-12-02 08:00] VITALS: BP 113/68; PULSE 59; PULSE 66; RESP 18; TEMP 98.6; O2SAT 98
[2017-12-02] MEDS: SODIUM CHLORIDE 0.9% FLUSH 10 ML FLUSH IV FLUSH SCH (09:00)
[2017-12-02] MEDS: DOCUSATE SODIUM 50 MG/SENNA 8.6 MG TAB PO SCH (09:18)
[2017-12-02] MEDS: PANTOPRAZOLE SOD 40 MG DELAYED RELEASE TAB PO SCH (09:19)
[2017-12-02] MEDS: FERROUS SULFATE 325 MG (65 MG ELEMENTAL IRON) TAB PO SCH (09:19)
[2017-12-02] MEDS: HEPARIN-D5W 25,000 U/250 ML 250 ML IV PRN ×2 (10:51→11:32)
--- NOTE | 2017-12-02 14:31 | HHI.PR ---
Subjective Remarks Feeling throbbing in his foot No chest pain or short of breath or fever Objective Vitals Vital Signs Date Time Temp Pulse Resp B/P (MAP) Pulse Ox O2 Delivery O2 Flow Rate FiO2 12/02/17 08:00 98.6 66 18 113/68 (83) 98 12/02/17 08:00 59 12/02/17 04:00 97.8 55 18 118/61 (80) 97 12/02/17 00:00 97.9 72 21 122/73 (89) 98 12/01/17 20:00 97.8 62 18 119/61 (80) 97 12/01/17 16:47 98.1 65 20 127/64 (85) 100 12/01/17 16:02 57 I/O 12/01/17 12/01/17 12/01/17 12/02/17 12/02/17 12/02/17 07:00 15:00 23:00 07:00 15:00 23:00 Intake Total 240 ml 707 ml 312.5 ml Output Total 1200 ml 1400 ml 1150 ml 1500 ml Balance -960 ml -693 ml -837.5 ml -1500 ml Intake Oral 240 ml 480 ml IV Total 227 ml 312.5 ml Output Urine Total 1200 ml 1400 ml 1150 ml 1500 ml # Voids 1 # Bowel Movements 1 0 0 Result Diagram: 12/02/17 0311 12/01/17 1124 Objective Remarks GENERAL: This is a well-nourished, well-developed patient, in no apparent distress. SKIN: No rashes, warm and dry HEAD: Atraumatic. Normocephalic. EYES: Pupils equal round and reactive. Extraocular motions intact. No scleral icterus. ENT: Nose without bleeding, or drainage, Airway patent. NECK: Trachea midline. Supple CARDIOVASCULAR: Regular rate and rhythm without murmurs, gallops, or rubs. RESPIRATORY: Fair air entry bilaterally. No wheezes, rales, or rhonchi. GASTROINTESTINAL: Abdomen soft, non-tender, nondistended. Positive bowel sounds MUSCULOSKELETAL: Extremities without clubbing, cyanosis, or edema. Pedal pulses appreciated, right foot in gauze status post Mohs amputation NEUROLOGICAL: Awake and alert. Moves all extremity. Normal speech.no focal neurological deficit Procedures 11/28 Amputation right 4th toe 11/30- EGD- duonenits, gastric ulcer colonosocpy- rectal ulcer, internal hemorrhoids 11/30 Aortogram w/ R LE Angiogram Findings: 1. Occlusion of R popliteal artery and poor opacification of pedal vessels 2. Picture potentially c/w Buerger's A/P Assessment and Plan 12/02: Pathology of the amputation showing extensive acute inflammation, checked with podiatry and cve dr Spring , rec 7 days of abx , will dc on bactrim, pt rec no need for rehab , wheeled walker 52 years old male Acute PAD with Right Poplliteal artery thrombosis- Necrotic fourth toe wet gangrene Suspected osteomyelitis of distal foot. -Aorta CTA with runoff showing occlusive thrombus of popliteal artery on the right. - S/P angiogram- 11/30 -start on broad-spectrum antibiotics including coverage for gram positives, as well as anaerobes. = Sedimentation rate 64. Continue broad-spectrum IV antibiotics. - on Heparin drip-per Vascular - Dr. Bryant ff closely along with us - Podiatry ff - PT- consult- weightbearing as tolerated Microcytic anemia.-Iron deficiency Anemia S/P EGD- duodenitis and gastric ulcers 11/30 S/P colonoscopy-11/30 rectal ulcer -Hemoglobin 10, with MCV in the 60s. -No NSAIDs - on Iron, PPI - ff biopsy reports Hypertension- improved - prn IV Vasotec. = 11/27. Blood pressure acceptable. Continue to monitor. //Cocaine abuse. Suspected. Cussed risks of cocaine/crack use. PT daily CM consult for DC planning Carlotta Mejia MD Dec 02, 2017 14:31
[2017-12-02] MEDS ORDERED: FERR325T20 PO (15:30)
[2017-12-02] MEDS ORDERED: BACT800T5 PO (15:30)
[2017-12-02] MEDS ORDERED: HYDR-3516 PO (15:49)
--- NOTE | 2017-12-02 15:52 | HHI.DS ---
Discharge Summary Admission Date Nov 26, 2017 at 15:22 Discharge Date: Dec 02, 2017 Admitting Diagnosis arterial thrombus, ischemic rest pain, necrotic R fourth toe (1) Ischemic rest pain of lower extremity ICD Code: I73.9 - Peripheral vascular disease, unspecified (2) Popliteal artery thrombosis ICD Code: I74.3 - Embolism and thrombosis of arteries of the lower extremities Procedures 11/28 Amputation right 4th toe 11/30- EGD- duonenits, gastric ulcer colonosocpy- rectal ulcer, internal hemorrhoids 11/30 Aortogram w/ R LE Angiogram Findings: 1. Occlusion of R popliteal artery and poor opacification of pedal vessels 2. Picture potentially c/w Patric's Brief History - From Admission 52-year-old male with a past extensive history of smoking, gout, who presents with a two-week history of worsening constant, nonradiating right foot pain, with drastic worsening over the past day. Pain is worse with elevation, better with dangling. Denies any fevers, chills, chest pain, shortness of breath. He denies any systemic symptoms, however says the pain is incapacitating. CBC/BMP: 12/02/17 0311 12/01/17 1124 Significant Findings Laboratory Tests Test 11/29/17 18:47 11/30/17 02:04 11/30/17 06:36 11/30/17 20:49 Activated Partial Thromboplast Time 30.9 SEC (24.3-30.1) 30.8 SEC (24.3-30.1) 35.9 SEC (24.3-30.1) Vancomycin Level Trough 14.2 MCG/ML (5.0-10.0) Test 12/01/17 03:24 12/01/17 11:24 12/01/17 18:40 12/02/17 03:11 Activated Partial Thromboplast Time 47.8 SEC (24.3-30.1) 39.9 SEC (24.3-30.1) 33.4 SEC (24.3-30.1) 48.8 SEC (24.3-30.1) Red Blood Count 4.36 MIL/MM3 (4.50-5.90) 4.32 MIL/MM3 (4.50-5.90) Hemoglobin 9.4 GM/DL (13.0-17.0) 9.4 GM/DL (13.0-17.0) Hematocrit 30.4 % (39.0-51.0) 29.8 % (39.0-51.0) Mean Corpuscular Volume 69.6 FL (80.0-100.0) 68.9 FL (80.0-100.0) Mean Corpuscular Hemoglobin 21.5 PG (27.0-34.0) 21.7 PG (27.0-34.0) Mean Corpuscular Hemoglobin Concent 30.8 % (32.0-36.0) 31.4 % (32.0-36.0) Red Cell Distribution Width 18.4 % (11.6-17.2) 18.7 % (11.6-17.2) Neutrophils (%) (Auto) 75.1 % (16.0-70.0) Lymphocytes (%) (Auto) 7.2 % (9.0-44.0) Monocytes (%) (Auto) 8.8 % (0.0-8.0) Eosinophils (%) (Auto) 8.0 % (0.0-4.0) Lymphocytes # (Auto) 0.7 TH/MM3 (1.0-4.8) Eosinophils # (Auto) 0.8 TH/MM3 (0-0.4) Random Glucose 136 MG/DL (74-106) Estimat Glomerular Filtration Rate 71 ML/MIN (>89) Test 12/02/17 12:00 Activated Partial Thromboplast Time 37.8 SEC (24.3-30.1) PE at Discharge GENERAL: This is a well-nourished, well-developed patient, in no apparent distress. SKIN: No rashes, warm and dry HEAD: Atraumatic. Normocephalic. EYES: Pupils equal round and reactive. Extraocular motions intact. No scleral icterus. ENT: Nose without bleeding, or drainage, Airway patent. NECK: Trachea midline. Supple CARDIOVASCULAR: Regular rate and rhythm without murmurs, gallops, or rubs. RESPIRATORY: Fair air entry bilaterally. No wheezes, rales, or rhonchi. GASTROINTESTINAL: Abdomen soft, non-tender, nondistended. Positive bowel sounds MUSCULOSKELETAL: Extremities without clubbing, cyanosis, or edema. Pedal pulses appreciated, right foot in gauze status post Mohs amputation NEUROLOGICAL: Awake and alert. Moves all extremity. 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 S/P angiogram- 11/30art on broad-spectrum antibiotics including coverage for gram positives, as well as anaerobes. Podiatry consult is status post amputation, [facility] consulted status post angiogram Aorta CTA with runoff showing occlusive thrombus of popliteal artery on the right. Heparin drip and she did, biopsy showed extensive inflammation, podiatry and [facility] recommended 7 days of antibiotic and cleared for discharge [id number] encounter performed with the patient on discharge day, as well as physical exam, summary of hospitalization course and postdischarge plan has been D/W the patient. 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 Discharge medications reviewed and printed and signed, post discharge follow up visit with PCP and other specialist as well as Brief hospital course and discharge summary has been placed. Pt Condition on Discharge: Fair Discharge Disposition: Discharge Home Discharge Time: > 30 minutes Discharge Instructions DIET: Follow Instructions for: Heart Healthy Diet Activities you can perform: See Additionl Instruction Other Activity Instructions: per [facility] recs New Medications: Sulfamethoxazole-Trimethoprim (Bactrim DS) 800-160 Mg Tab 1 TAB PO BID for Infection, #3 TAB 0 Refills Ferrous Sulfate (Ferosul) 325 Mg (65 Mg Iron) Tablet 325 MG PO BID for roger, #60 TAB Carlotta Mejia MD Dec 02, 2017 15:52
== END 2017-12-02 17:19 | disposition home or self-care (01) | DRG 256 ==
LOC: NEPC 07:58 → NEDA 15:22 → NEDH 21:00 → NEPHCDU 22:38 → N05B 11-27 18:55
PROVIDERS: ADMIT Hospitalist; ATTEND Hospitalist
PROC: 0Y6V0Z0 Detachment at Right 4th Toe, Complete, Open Approach (ICD-10-PCS; principal; 2017-11-28 08:42)
PROC: 0DBP8ZX Excision of Rectum, Via Natural or Artificial Opening Endoscopic, Diagnostic (ICD-10-PCS; 2017-11-30)
PROC: B41DYZZ Fluoroscopy of Aorta and Bilateral Lower Extremity Arteries using Other Contrast (ICD-10-PCS; 2017-11-30)
PROC: 0DB78ZX Excision of Stomach, Pylorus, Via Natural or Artificial Opening Endoscopic, Diagnostic (ICD-10-PCS; 2017-11-30 10:06)
DX: I74.3 Embolism and thrombosis of arteries of the lower extremities (principal); M86.171 Other acute osteomyelitis, right ankle and foot; I73.1 Thromboangiitis obliterans [Buerger's disease]; K62.6 Ulcer of anus and rectum; I10 Essential (primary) hypertension; K25.9 Gastric ulcer, unspecified as acute or chronic, without hemorrhage or perforation; D50.9 Iron deficiency anemia, unspecified; F14.10 Cocaine abuse, uncomplicated; K29.80 Duodenitis without bleeding; K64.8 Other hemorrhoids; M10.9 Gout, unspecified; F10.20 Alcohol dependence, uncomplicated; F11.90 Opioid use, unspecified, uncomplicated; Z87.891 Personal history of nicotine dependence
CPT/HCPCS: 36246; 73630; 75625; 75635; 75710; 80048; 80053; 80202; 80307; 82728; 82948; 83036; 83540; 83550; 85025; 85027; 85610; 85652; 85730; 88305; 88311; 88312; 93005; 93922; 93970; 93998; 96365; 96375; 99152; C1769; C1893; G8987-GP; G8988-GP; J0131; J1644; J2250; J2270; J2405; J2543; J3010; J3370; J7050; L3260; Q9967

== ENCOUNTER 2017-12-08 16:01 | Inpatient (IN) | payer OTHER ==
[~2017-12-08] VITALS: Ht 172.7 cm; Wt 62.0 kg
[~2017-12-08 16:01] MED LIST changes: +BACT800T5 PO; +FERR325T20 PO; +HYDR-3516 PO; -IBUP800 PO; -PERC5TAB12 PO
[2017-12-08 16:03] VITALS: BP 123/73; PULSE 87; RESP 16; TEMP 98.5; O2SAT 100
--- NOTE | 2017-12-08 17:04 | RADRPT ---
EXAM DATE/TIME: 12/08/2017 16:20 [facility] COMPARISON: FOOT RIGHT COMPLETE ([id number]), November 28, 2017, 9:41. INDICATIONS : Right foot infection. MEDICAL HISTORY : blood clot in right 4th digit SURGICAL HISTORY : right 4th digit amputated 11/2017 ENCOUNTER: Initial ACUITY: 1 week PAIN SCORE: 10/10 LOCATION: Right foot FINDINGS: There appears to be some new lucency involving the head of the right fourth metatarsal and possibly t he head of the right third metatarsal. If there is strong clinical concern for osteomyelitis, MRI wit h contrast would be more sensitive in this patient. No acute fracture or dislocation is noted. Degene rative changes are noted involving the right first metatarsophalangeal joint. Old healed fracture of the right fifth metatarsal shaft is noted. Patient is status post amputation of the right fourth digi t. CONCLUSION: New lucency involving the head of the right fourth metatarsal and possibly the head of the right thir d metatarsal. If there is strong clinical concern for osteomyelitis, MRI of the foot with contrast wo uld be more sensitive in this patient. Martinez Avrey MD on December 08, 2017 at 17:00 Board Certified Radiologist. This report was verified electronically.
[2017-12-08 17:23] LABS: AUTOMATED NEUTROPHIL # 7.2 TH/MM3 (1.8-7.7); BASOPHIL # 0.1 TH/MM3 (0-0.2); BASOPHIL % 1.4 % (0.0-2.0); EOSINOPHIL # 0.3 TH/MM3 (0-0.4); EOSINOPHIL % 3.4 % (0.0-4.0); HEMATOCRIT 32.6 % (39.0-51.0); HEMOGLOBIN 10.1 GM/DL (13.0-17.0); LYMPHOCYTE # 1.3 TH/MM3 (1.0-4.8); MEAN CELL VOLUME 69.6 FL (80.0-100.0); MEAN CORPUSCULAR HEMOGLOBIN 21.5 PG (27.0-34.0); MEAN CORPUSCULAR HGB CONC 30.9 % (32.0-36.0); MEAN PLATELET VOLUME 10.2 FL (7.0-11.0); MONO % 9.6 % (0.0-8.0); NEUT % 72.6 % (16.0-70.0); PLATELET COUNT 410 TH/MM3 (150-450); RED BLOOD COUNT 4.68 MIL/MM3 (4.50-5.90); RED CELL DISTRIBUTION WIDTH 19.9 % (11.6-17.2); WHITE BLOOD COUNT 9.9 TH/MM3 (4.0-11.0)
[2017-12-08 17:37] LABS: ALBUMIN 3.4 GM/DL (3.4-5.0); ALT (GPT) 19 U/L (12-78); AST (GOT) 10 U/L (15-37); BLOOD UREA NITROGEN 12 MG/DL (7-18); CALCIUM 9.5 MG/DL (8.5-10.1); CHLORIDE 104 MEQ/L (98-107); CREATININE 1.16 MG/DL (0.60-1.30); GLOMERULAR FILTRATION RATE 67 ML/MIN (>89); GLUCOSE,RANDOM 90 MG/DL (74-106); SODIUM (NA) 137 MEQ/L (136-145)
[2017-12-08 17:39] LABS: ALKALINE PHOSPHATASE 95 U/L (45-117); TOTAL BILIRUBIN ADULT 0.3 MG/DL (0.2-1.0); TOTAL PROTEIN 8.8 GM/DL (6.4-8.2)
[2017-12-08 17:41] LABS: INTERNATIONAL NORMALIZED RATIO 1.1 RATIO; PROTHROMBIN TIME - PATIENT 10.8 SEC (9.8-11.6)
--- NOTE | 2017-12-08 19:17 | PD ---
HPI Chief Complaint: Injury Time Seen by Provider: 18:50 Travel History International Travel<30 days: No Contact w/Intl Traveler<30days: No Traveled to known affect area: No History of Present Illness HPI 52-year-old male complains of right foot pain. Patient has history of recurrent right foot infection status post right fourth toe amputation by mergers and acquisitions associate in the past. Patient states that he has recurrent infection and not responding to oral antibiotic. The most recent antibiotic patient's on is Bactrim DS. Patient was seen by mergers and acquisitions associate, Dr. Dent, today and vascular surgeon Dr. Bryant was advised to be admitted, MRI of the right foot, IV antibiotic and possible further surgery by podiatry. Patient states the pain the right foot is severe sharp pain localized to right foot. Patient denies any pain radiation. Patient denies any fever chills. Patient states that he has history of gout. Patient denies history hypertension, diabetes, hyperlipidemia. PFSH Past Medical History Blood Disorders: No Anxiety: No Depression: No Cancer: No Cardiovascular Problems: No Chemotherapy: No Diabetes: No Diminished Hearing: No Endocrine: No Gout: Yes Genitourinary: No Immune Disorder: No Musculoskeletal: No Neurologic: No Psychiatric: No Reproductive: No Respiratory: No Radiation Therapy: No Thyroid Disease: No Influenza Vaccination: No Past Surgical History Other Surgery: Yes (JAW FX, SKULL FXm, partial amputation of right foot) Social History Alcohol Use: No (2-3 MIXED DRINKS PER DAY- denies) Tobacco Use: No Substance Use: No Allergies-Medications (Allergen,Severity, Reaction): Coded Allergies: No Known Allergies (Verified Allergy, Unknown, 11/26/17) Reported Meds & Prescriptions Reported Meds & Active Scripts Active Hydrocodone-Acetamin 5-325 mg (Hydrocodone/Acetaminophen) 5 Mg-325 Mg Tablet 1 Tab PO Q4H PRN Bactrim DS (Sulfamethoxazole-Trimethoprim) 800-160 Mg Tab 1 Tab PO BID Ferosul (Ferrous Sulfate) 325 Mg (65 Mg Iron) Tablet 325 Mg PO BID Review of Systems General / Constitutional: No: Fever Eyes: No: Visual changes HENT: No: Headaches Cardiovascular: No: Chest Pain or Discomfort Respiratory: No: Shortness of Breath Gastrointestinal: No: Abdominal Pain Genitourinary: No: Dysuria Musculoskeletal: Positive: Pain Skin: No Rash Neurologic: No: Weakness Psychiatric: No: Depression Endocrine: No: Polydipsia Hematologic/Lymphatic: No: Easy Bruising Physical Exam Narrative GENERAL: Well-nourished, well-developed patient. SKIN: Focused skin assessment warm/dry. HEAD: Normocephalic. EYES: No scleral icterus. No injection or drainage. NECK: Supple, trachea midline. No JVD or lymphadenopathy. CARDIOVASCULAR: Regular rate and rhythm without murmurs, gallops, or rubs. RESPIRATORY: Breath sounds equal bilaterally. No accessory muscle use. GASTROINTESTINAL: Abdomen soft, non-tender, nondistended. MUSCULOSKELETAL: No cyanosis, or edema. BACK: Nontender without obvious deformity. No CVA tenderness. Redness swelling tenderness distal aspect right foot. Dressing in place. Patient status post palpitation right fourth toe. Data Data Last Documented VS Vital Signs Date Time Temp Pulse Resp B/P (MAP) Pulse Ox O2 Delivery O2 Flow Rate FiO2 12/08/17 16:03 98.5 87 16 123/73 (90) 100 Room Air Orders Orders Complete Blood Count With Diff (12/08/17 16:08) Comprehensive Metabolic Panel (12/08/17 16:08) Coag Profile (12/08/17 16:08) Westergren Sedimentation Rate (12/08/17 16:08) Foot, Complete ([id number]) (12/08/17 ) Labs Laboratory Tests Test 12/08/17 16:32 White Blood Count 9.9 TH/MM3 Red Blood Count 4.68 MIL/MM3 Hemoglobin 10.1 GM/DL Hematocrit 32.6 % Mean Corpuscular Volume 69.6 FL Mean Corpuscular Hemoglobin 21.5 PG Mean Corpuscular Hemoglobin Concent 30.9 % Red Cell Distribution Width 19.9 % Platelet Count 410 TH/MM3 Mean Platelet Volume 10.2 FL Neutrophils (%) (Auto) 72.6 % Lymphocytes (%) (Auto) 13.0 % Monocytes (%) (Auto) 9.6 % Eosinophils (%) (Auto) 3.4 % Basophils (%) (Auto) 1.4 % Neutrophils # (Auto) 7.2 TH/MM3 Lymphocytes # (Auto) 1.3 TH/MM3 Monocytes # (Auto) 1.0 TH/MM3 Eosinophils # (Auto) 0.3 TH/MM3 Basophils # (Auto) 0.1 TH/MM3 CBC Comment DIFF FINAL Differential Comment Erythrocyte Sedimentation Rate 67 mm/hr Prothrombin Time 10.8 SEC Prothromb Time International Ratio 1.1 RATIO Activated Partial Thromboplast Time 27.9 SEC Blood Urea Nitrogen 12 MG/DL Creatinine 1.16 MG/DL Random Glucose 90 MG/DL Total Protein 8.8 GM/DL Albumin 3.4 GM/DL Calcium Level 9.5 MG/DL Alkaline Phosphatase 95 U/L Aspartate Amino Transf (AST/SGOT) 10 U/L Alanine Aminotransferase (ALT/SGPT) 19 U/L Total Bilirubin 0.3 MG/DL Sodium Level 137 MEQ/L Potassium Level 3.8 MEQ/L Chloride Level 104 MEQ/L Carbon Dioxide Level 25.0 MEQ/L Anion Gap 8 MEQ/L Estimat Glomerular Filtration Rate 67 ML/MIN [facility] Medical Decision Making Medical Screen Exam Complete: Yes Emergency Medical Condition: Yes Differential Diagnosis Differential diagnosis including cellulitis, osteomyelitis. Narrative Course 52-year-old male who will be admitted to medical service and consult podiatry and vascular surgeon for possible further surgery of the right foot or nonhealing and infection the right foot. Diagnosis Primary Impression: Osteomyelitis Qualified Codes: M86.071 - Acute hematogenous osteomyelitis, right ankle and foot Admitting Information Admitting Physician Requests: Admit Guero Alvarado MD Dec 08, 2017 19:17
[2017-12-08] MEDS ORDERED: ONDANSETRON HCL 4 MG/2 ML VIAL IV PUSH ONE (19:30)
[2017-12-08] MEDS: SODIUM CHLOR 0.9% 1000 ML INJ 1,000 ML IV SCH (19:30)
[2017-12-08] MEDS ORDERED: VANCOMYCIN INJ 1,000 MG in SODIUM CHLOR 0.9% 250 ML INJ 250 ML IV ONE (19:30)
[2017-12-08] MEDS ORDERED: LEVOFLOXACIN 750 MG PREMIX INJ 150 ML IV ONE (19:30)
[2017-12-08] MEDS ORDERED: MORPHINE SULFATE 2 MG/ML INJ IV PUSH ONE (19:30)
[2017-12-08 19:39] VITALS: BP 107/73; PULSE 68; RESP 18; O2SAT 100
[2017-12-08] MEDS ORDERED: ACETAMINOPHEN/HYDROcodone 325 MG/5 MG TAB PO PRN (20:30)
[2017-12-08] MEDS ORDERED: NALOXONE HCL 0.4 MG/ML AMP IV PUSH PRN (20:30)
[2017-12-08] MEDS ORDERED: Vancomycin Consult Pharmacy 1 EA OTHER SCH (20:30)
[2017-12-08] MEDS ORDERED: SENNOSIDES 8.6 MG TAB PO PRN (20:30)
[2017-12-08] MEDS ORDERED: ACETAMINOPHEN 325 MG TAB PO PRN (20:30)
[2017-12-08] MEDS ORDERED: ONDANSETRON HCL 4 MG/2 ML VIAL IVP PRN (20:30)
[2017-12-08] MEDS ORDERED: MAGNESIUM HYDROXIDE SUSP 30 ML CUP PO PRN (20:30)
[2017-12-08] MEDS ORDERED: BISACODYL 10 MG SUPP RECTAL PRN (20:30)
[2017-12-08] MEDS ORDERED: GADODIAMIDE PF 287 MG/ML 5 ML VIAL (for RAD MRI) IV PUSH ONE (20:37)
[2017-12-08] MEDS ORDERED: MORPHINE SULFATE 4 MG/ML INJ IV PRN (20:45)
--- NOTE | 2017-12-08 21:07 | RADRPT ---
EXAM DATE/TIME: 12/08/2017 19:51 [facility] COMPARISON: FOOT RIGHT COMPLETE ([id number]), December 08, 2017, 16:20. INDICATIONS : Osteomyelitis. CONTRAST: 14 cc Omniscan (gadodiamide) IV MEDICAL HISTORY : Gout. SURGICAL HISTORY : Right foot, fourth digit, amputation. ENCOUNTER: Subsequent ACUITY: 1 week PAIN SCORE: 7/10 LOCATION: Right foot TECHNIQUE: Multiplanar, multisequence MRI examination was performed without contrast and after the intravenous a dministration of gadolinium. FINDINGS: BONE/CARTILAGE: There does appear to be some focal bone marrow edema in the distal portion of the fourth metatarsal. There is some enhancement on the postcontrast images in the distal metatarsal. Otherwise, there is no rmal signal throughout the wrist the bony structures. There is an old healed fracture involving the f ifth metatarsal. There are some degenerative changes at the first metatarsophalangeal joint. Patient is status post amputation of the fourth toe. There is some soft tissue swelling adjacent to the dista l fourth metatarsal. TENDONS: The tendons appear to be grossly intact. MISCELLANEOUS: Plantar aponeurosis is intact. Sinus tarsi is within normal limits. POST-CONTRAST: There some focal enhancement in the distal fourth metatarsal. CONCLUSION: There is a focal bone marrow edema along with some enhancement involving the distal fourth metatarsal with adjacent soft tissue swelling. These findings are suspicious for focal osteomyelitis of the dis jeffery metatarsal. Petr Malave MD on December 08, 2017 at 20:59 Board Certified Radiologist. This report was verified electronically.
[2017-12-08 22:18] VITALS: BP 128/60; PULSE 75; RESP 18; TEMP 97.9; O2SAT 100
[2017-12-08] MEDS: PIPERACIL-TAZO 3.375 GM PREMIX 50 ML IV SCH (22:47)
[2017-12-08] MEDS: SODIUM CHLORIDE 0.9% FLUSH 10 ML FLUSH IV FLUSH SCH (22:47)
[2017-12-08] MEDS: FERROUS SULFATE 325 MG (65 MG ELEMENTAL IRON) TAB PO SCH (22:48)
[2017-12-09] VITALS (7 sets, daily range): BP systolic 107–133; BP diastolic 57–77; PULSE 61–69; RESP 18–20; TEMP 97.8–98.3; O2SAT 98–100
--- NOTE | 2017-12-09 | HHI.HP ---
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 The patient reports the pain has been going on for approximately one month. He denies any fevers/chills. He reports difficulty with ambulation secondary to pain. He was discharged from the hospital on 12/02/17 with a one-week supply of Bactrim status post amputation. Review of Systems Except as stated in HPI: all other systems reviewed are Neg Past Family Social History Past Medical History History of osteomyelitis right foot Past Surgical History Right fourth toe amputation Reported Medications Reported Meds & Active Scripts Active Ferosul (Ferrous Sulfate) 325 Mg (65 Mg Iron) Tablet 325 Mg PO BID Allergies: Coded Allergies: No Known Allergies (Verified Allergy, Unknown, 11/26/17) Family History Negative for CAD/DM Social History Quit smoking on 11/02/17. Denies alcohol, illicit drugs. Physical Exam Vital Signs Vital Signs Date Time Temp Pulse Resp B/P (MAP) Pulse Ox O2 Delivery O2 Flow Rate FiO2 12/08/17 22:18 97.9 75 18 128/60 (82) 100 12/08/17 19:39 68 18 107/73 (84) 100 Room Air 12/08/17 16:03 98.5 87 16 123/73 (90) 100 Room Air Physical Exam GENERAL: male lying in bed, screaming in pain SKIN: Redness, erythema and edema surrounding amputation site of fourth digit of right foot. Necrotic tissue surrounding wound. HEAD: Atraumatic. Normocephalic. No temporal or scalp tenderness. EYES: Pupils equal round and reactive. Extraocular motions intact. No scleral icterus. No injection or drainage. ENT: Nose without bleeding, purulent drainage or septal hematoma. Throat without erythema, tonsillar hypertrophy or exudate. Uvula midline. Airway patent. NECK: Trachea midline. No JVD or lymphadenopathy. Supple, nontender, no meningeal signs. CARDIOVASCULAR: Regular rate and rhythm without murmurs, gallops, or rubs. RESPIRATORY: Clear to auscultation. Breath sounds equal bilaterally. No wheezes , rales, or rhonchi. GASTROINTESTINAL: Abdomen soft, non-tender, nondistended. No hepato-splenomegaly , or palpable masses. No guarding. MUSCULOSKELETAL: Extremities without clubbing, cyanosis, or edema. No joint tenderness, effusion, or edema noted. No calf tenderness. NEUROLOGICAL: Awake and alert. Cranial nerves II through XII intact. Motor and sensory grossly within normal limits. Normal speech. Laboratory Laboratory Tests Test 12/08/17 16:32 White Blood Count 9.9 Red Blood Count 4.68 Hemoglobin 10.1 Hematocrit 32.6 Mean Corpuscular Volume 69.6 Mean Corpuscular Hemoglobin 21.5 Mean Corpuscular Hemoglobin Concent 30.9 Red Cell Distribution Width 19.9 Platelet Count 410 Mean Platelet Volume 10.2 Neutrophils (%) (Auto) 72.6 Lymphocytes (%) (Auto) 13.0 Monocytes (%) (Auto) 9.6 Eosinophils (%) (Auto) 3.4 Basophils (%) (Auto) 1.4 Neutrophils # (Auto) 7.2 Lymphocytes # (Auto) 1.3 Monocytes # (Auto) 1.0 Eosinophils # (Auto) 0.3 Basophils # (Auto) 0.1 CBC Comment DIFF FINAL Differential Comment Erythrocyte Sedimentation Rate 67 Prothrombin Time 10.8 Prothromb Time International Ratio 1.1 Activated Partial Thromboplast Time 27.9 Blood Urea Nitrogen 12 Creatinine 1.16 Random Glucose 90 Total Protein 8.8 Albumin 3.4 Calcium Level 9.5 Alkaline Phosphatase 95 Aspartate Amino Transf (AST/SGOT) 10 Alanine Aminotransferase (ALT/SGPT) 19 Total Bilirubin 0.3 Sodium Level 137 Potassium Level 3.8 Chloride Level 104 Carbon Dioxide Level 25.0 Anion Gap 8 Estimat Glomerular Filtration Rate 67 Result Diagram: 12/08/17 1632 12/08/17 1632 Caprini VTE Risk Assessment Caprini VTE Risk Assessment: No/Low Risk (score <= 1) Caprini Risk Assessment Model Point Value = 1 Point Value = 2 Point Value = 3 Point Value = 5 Age 41-60 Minor surgery BMI > 25 kg/m2 Swollen legs Varicose veins or History of unexplained or recurrent spontaneous Oral contraceptives or hormone replacement Sepsis (< 1 month) Serious lung disease, including pneumonia (< 1 month) Abnormal pulmonary function Acute myocardial infarction Congestive heart failure (< 1 month) History of inflammatory bowel disease Medical patient at bed rest Age 61-74 Arthroscopic surgery Major open surgery (> 45 min) Laparoscopic surgery (> 45 min) Malignancy Confined to bed (> 72 hours) Immobilizing plaster cast Central venous access Age >= 75 History of VTE Family history of VTE Factor V Leiden Prothrombin [id number] Lupus anticoagulant Anticardiolipin antibodies Elevated serum homocysteine Heparin-induced thrombocytopenia Other congenital or acquired thrombophilia Stroke (< 1 month) Elective arthroplasty Hip, pelvis, or leg fracture Acute spinal cord injury (< 1 month) Prophylaxis Regimen Total Risk Factor Score Risk Level Prophylaxis Regimen 0-1 Low Early ambulation 2 Moderate Order ONE of the following: *Sequential Compression Device (SCD) *Heparin 5000 units SQ BID 3-4 Higher Order ONE of the following medications: *Heparin 5000 units SQ TID *Enoxaparin/Lovenox 40 mg SQ daily (WT < 150 kg, CrCl > 30 mL/min) *Enoxaparin/Lovenox 30 mg SQ daily (WT < 150 kg, CrCl > 10-29 mL/min) *Enoxaparin/Lovenox 30 mg SQ BID (WT < 150 kg, CrCl > 30 mL/min) AND/OR *Sequential Compression Device (SCD) 5 or more Highest Order ONE of the following medications: *Heparin 5000 units SQ TID (Preferred with Epidurals) *Enoxaparin/Lovenox 40 mg SQ daily (WT < 150 kg, CrCl > 30 mL/min) *Enoxaparin/Lovenox 30 mg SQ daily (WT < 150 kg, CrCl > 10-29 mL/min) *Enoxaparin/Lovenox 30 mg SQ BID (WT < 150 kg, CrCl > 30 mL/min) AND *Sequential Compression Device (SCD) Assessment and Plan Assessment and Plan Assessment/plan: 1. Osteomyelitis/popliteal artery occlusion MRI of the right foot significant for focal bone marrow edema with some enhancement involving the distal fourth metatarsal, concerning for osteomyelitis ESR 67 Vancomycin/Zosyn Podiatry consulted, appreciate assistance Vascular surgery consulted, appreciate assistance 2. Anemia/ulcers Continue home iron Patient status post EGD and colonoscopy on last admission revealing bleeding duodenal ulcer and a large rectal ulcer Protonix FEN Nothing by mouth Electrolytes: Monitor and replete when necessary Holding pharmacologic anticoagulation for possible operative intervention NS at 125 cc/hour Physician Certification 2 Midnight Certification Type: Admission for Inpatient Services Order for Inpatient Services The services are ordered in accordance with Medicare regulations or non- Medicare payer requirements, as applicable. In the case of services not specified as inpatient-only, they are appropriately provided as inpatient services in accordance with the 2-midnight benchmark. Estimated LOS (days): 2 2 days is the estimated time the patient will need to remain in the hospital, assuming treatment plan goals are met and no additional complications. Post-Hospital Plan: Not yet determined Laisha Reddy MD Dec 09, 2017 00:00
[2017-12-09] MEDS: MORPHINE SULFATE 4 MG/ML INJ IV PUSH PRN ×5 (00:10→18:46)
[2017-12-09] MEDS: SODIUM CHLOR 0.9% 1000 ML INJ 1,000 ML IV SCH ×3 (01:23→19:30)
[2017-12-09] MEDS: PIPERACIL-TAZO 3.375 GM PREMIX 50 ML IV SCH ×4 (02:46→21:21)
--- NOTE | 2017-12-09 08:02 | PD.VS.PN ---
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 MRI suggestive of osteo but ? utility with recent podiatric surgery Afebrile and no leukocytosis Motor intact Objective Vitals/I&O Date Time Temp Pulse Resp B/P (MAP) Pulse Ox O2 Delivery O2 Flow Rate FiO2 12/09/17 04:45 98.3 69 18 123/74 (90) 100 12/09/17 01:30 98.0 64 18 133/77 (95) 99 12/09/17 00:02 64 18 130/72 (91) 98 12/08/17 22:18 97.9 75 18 128/60 (82) 100 12/08/17 19:39 68 18 107/73 (84) 100 Room Air 12/08/17 16:03 98.5 87 16 123/73 (90) 100 Room Air 12/09/17 12/09/17 12/09/17 07:00 15:00 23:00 Output Total 400 ml Balance -400 ml Physical Exam Palpable R popliteal pulse no pulses in foot Foot with significant pallor but motor intact amputation site ok Laboratory Laboratory Tests Test 12/08/17 16:32 White Blood Count 9.9 Red Blood Count 4.68 Hemoglobin 10.1 Hematocrit 32.6 Mean Corpuscular Volume 69.6 Mean Corpuscular Hemoglobin 21.5 Mean Corpuscular Hemoglobin Concent 30.9 Red Cell Distribution Width 19.9 Platelet Count 410 Mean Platelet Volume 10.2 Neutrophils (%) (Auto) 72.6 Lymphocytes (%) (Auto) 13.0 Monocytes (%) (Auto) 9.6 Eosinophils (%) (Auto) 3.4 Basophils (%) (Auto) 1.4 Neutrophils # (Auto) 7.2 Lymphocytes # (Auto) 1.3 Monocytes # (Auto) 1.0 Eosinophils # (Auto) 0.3 Basophils # (Auto) 0.1 CBC Comment DIFF FINAL Differential Comment Erythrocyte Sedimentation Rate 67 Prothrombin Time 10.8 Prothromb Time International Ratio 1.1 Activated Partial Thromboplast Time 27.9 Blood Urea Nitrogen 12 Creatinine 1.16 Random Glucose 90 Total Protein 8.8 Albumin 3.4 Calcium Level 9.5 Alkaline Phosphatase 95 Aspartate Amino Transf (AST/SGOT) 10 Alanine Aminotransferase (ALT/SGPT) 19 Total Bilirubin 0.3 Sodium Level 137 Potassium Level 3.8 Chloride Level 104 Carbon Dioxide Level 25.0 Anion Gap 8 Estimat Glomerular Filtration Rate 67 Imaging Last 48 hours Impressions Foot X-Ray 12/08/17 0000 Signed Impressions: Service Date/Time: Friday, December 08, 2017 16:20 - CONCLUSION: New lucency involving the head of the right fourth metatarsal and possibly the head of the right third metatarsal. If there is strong clinical concern for osteomyelitis, MRI of the foot with contrast would be more sensitive in this patient. Martinez Avery MD Foot MRI 12/08/17 0000 Signed Impressions: Service Date/Time: Friday, December 08, 2017 19:51 - CONCLUSION: There is a focal bone marrow edema along with some enhancement involving the distal fourth metatarsal with adjacent soft tissue swelling. These findings are suspicious for focal osteomyelitis of the distal metatarsal. Petr Malave MD Assessment and Plan Plan Pt with severe infrageniculate R LE arterial occlusive disease, poor revascularization options given no targets identified on angiography 1. Pain control, OOB and WBAT 2. Agree with podiatry eval although I think the wound looks ok and MRI results difficult to interpret in setting of recent surgery 3. Probably would benefit from systemic anticoagulation 4. Revascularization options are limited. I think it is reasonable to perform surgical exploration of tibial vessels and attempt a bypass, but high likelihood of requiring a BKA can schedule for surgery next week 5. Rec tox screen given prior results Martinez Bryant MD Dec 09, 2017 08:02
[2017-12-09 08:33] LABS: AUTOMATED NEUTROPHIL # 7.5 TH/MM3 (1.8-7.7); BASOPHIL # 0.1 TH/MM3 (0-0.2); BASOPHIL % 1.4 % (0.0-2.0); EOSINOPHIL # 0.3 TH/MM3 (0-0.4); EOSINOPHIL % 3.3 % (0.0-4.0); HEMATOCRIT 30.6 % (39.0-51.0); HEMOGLOBIN 9.6 GM/DL (13.0-17.0); LYMPH % 5.5 % (9.0-44.0); LYMPHOCYTE # 0.5 TH/MM3 (1.0-4.8); MEAN CELL VOLUME 68.8 FL (80.0-100.0); MEAN CORPUSCULAR HEMOGLOBIN 21.6 PG (27.0-34.0); MEAN CORPUSCULAR HGB CONC 31.3 % (32.0-36.0); MEAN PLATELET VOLUME 10.4 FL (7.0-11.0); MONO % 9.4 % (0.0-8.0); MONOCYTE # 0.9 TH/MM3 (0-0.9); NEUT % 80.4 % (16.0-70.0); PLATELET COUNT 329 TH/MM3 (150-450); RED BLOOD COUNT 4.44 MIL/MM3 (4.50-5.90); RED CELL DISTRIBUTION WIDTH 19.5 % (11.6-17.2); WHITE BLOOD COUNT 9.4 TH/MM3 (4.0-11.0)
[2017-12-09 08:50] LABS: ALBUMIN 2.9 GM/DL (3.4-5.0); AST (GOT) 5 U/L (15-37); BICARBONATE 25.3 MEQ/L (21.0-32.0); BLOOD UREA NITROGEN 10 MG/DL (7-18); CALCIUM 9.2 MG/DL (8.5-10.1); CHLORIDE 105 MEQ/L (98-107); CREATININE 0.98 MG/DL (0.60-1.30); GLOMERULAR FILTRATION RATE 81 ML/MIN (>89); GLUCOSE,RANDOM 83 MG/DL (74-106); SODIUM (NA) 139 MEQ/L (136-145)
[2017-12-09 08:52] LABS: ALT (GPT) 12 U/L (12-78)
[2017-12-09 08:54] LABS: ALKALINE PHOSPHATASE 79 U/L (45-117); TOTAL BILIRUBIN ADULT 0.3 MG/DL (0.2-1.0); TOTAL PROTEIN 7.3 GM/DL (6.4-8.2)
[2017-12-09] MEDS: SODIUM CHLORIDE 0.9% FLUSH 10 ML FLUSH IV FLUSH SCH ×2 (09:00→21:21)
[2017-12-09] MEDS ORDERED: VANCOMYCIN 1 GM/200 ML PREMIX IV SCH (09:00)
[2017-12-09] MEDS: FERROUS SULFATE 325 MG (65 MG ELEMENTAL IRON) TAB PO SCH ×2 (09:21→21:21)
[2017-12-09] MEDS: PANTOPRAZOLE SOD 40 MG DELAYED RELEASE TAB PO SCH (09:21)
[2017-12-09 09:58] LABS: OVALOCYTES 1+ (NORMAL)
--- NOTE | 2017-12-09 10:59 | EKG ---
Date Performed: 12/09/2017 Time Performed: 04:55:13 PTAGE: 52 years EKG: Sinus rhythm VOLTAGE CRITERIA FOR LVH ABNORMAL ECG PREVIOUS TRACING : 11/26/2017 11.06 DOCTOR: Robe Johnson Interpretating Date/Time 12/09/2017 10:55:54
[2017-12-09] MEDS: VANCOMYCIN INJ 1,250 MG in SODIUM CHLOR 0.9% 250 ML INJ 250 ML IV SCH (21:22)
--- NOTE | 2017-12-09 22:49 | PD.CONS ---
History of Present Illness Service Foot and Ankle Surgery/Podiatry Progress Note Consult Requested By Reason for Consult Right foot ischemia/ulcer Primary Care Physician No Primary Care Physician Diagnoses: History of Present Illness 52 year old male with right foot ulcer s/p fourth digit amputation. Per vascular patient has severe infrageniculate RLE vascular occlusive disease and is s/p diagnostic angiography 11/30/17. Patient states that he has severe pain to his right foot and is in extreme discomfort. Patient was sent over to [place] by Dr. Howell after she noticed necrosis to surgical site. Patient is being followed by Dr. Bryant with vascular. Review of Systems Constitutional: DENIES: Fatigue, Night Sweats Eyes: DENIES: Blurred vision Ears, nose, mouth, throat: DENIES: Hearing loss Respiratory: DENIES: Cough, Shortness of breath Cardiovascular: COMPLAINS OF: Claudication, DENIES: Chest pain Gastrointestinal: DENIES: Constipation, Diarrhea, Nausea, Vomiting Psychiatric: DENIES: Anxiety, Confusion Past Family Social History Allergies: Coded Allergies: No Known Allergies (Verified Allergy, Unknown, 11/26/17) Past Medical History as per HPI Past Surgical History Right fourth digit amputation Active Ordered Medications Current Medications Medications (Trade) Dose Ordered Sig/Brian Route Start Time Stop Time Status Last Admin Sodium Chloride 1,000 ml @ 125 mls/hr Q8H IV 12/08/17 19:30 12/09/17 11:30 Pharmacy Profile Note 0 ml @ 0 mls/hr UNSCH OTHER 12/08/17 20:30 Piperacillin Sod/ Tazobactam Sod 50 ml @ 100 mls/hr Q6H IV 12/08/17 21:00 12/09/17 21:21 (NS Flush) 2 ml UNSCH PRN IV FLUSH 12/08/17 20:30 (NS Flush) 2 ml BID IV FLUSH 12/08/17 21:00 12/09/17 21:21 (Zofran Inj) 4 mg Q6H PRN IVP 12/08/17 20:30 (Narcan Inj) 0.4 mg UNSCH PRN IV PUSH 12/08/17 20:30 (Milk Of Magnesia Liq) 30 ml Q12H PRN PO 12/08/17 20:30 (Senokot) 17.2 mg Q12H PRN PO 2/6/18 20:30 (Dulcolax Supp) 10 mg DAILY PRN RECTAL 12/08/17 20:30 (Ferrous Sulfate) 325 mg BID PO 12/08/17 21:00 12/09/17 21:21 (Tylenol) 650 mg Q6H PRN PO 12/08/17 20:30 ([place] 5-325 Mg) 1 tab Q4H PRN PO 12/08/17 20:30 Miscellaneous Information SPECIFIC LAB TO BE DRAWN:VANCO TROUGH DATE TO BE DR... ONCE ONCE .XX 12/10/17 08:45 12/10/17 08:46 (Morphine Inj) 5 mg Q4H PRN IV PUSH 12/08/17 23:45 12/09/17 18:46 (Protonix) 40 mg DAILY PO 12/09/17 09:00 12/09/17 09:21 Vancomycin HCl 1250 mg/Sodium Chloride 262.5 ml @ 250 mls/hr Q12H IV 12/09/17 21:00 12/09/17 21:22 Physical Exam Vital Signs Vital Signs Date Time Temp Pulse Resp B/P (MAP) Pulse Ox O2 Delivery O2 Flow Rate FiO2 12/09/17 19:04 98.1 67 18 130/65 (86) 100 12/09/17 15:51 98.1 66 18 132/67 (88) 100 12/09/17 12:55 97.8 61 18 113/57 (75) 100 12/09/17 08:07 98.3 61 20 107/57 (74) 98 12/09/17 04:45 98.3 69 18 123/74 (90) 100 12/09/17 01:30 98.0 64 18 133/77 (95) 99 12/09/17 00:02 64 18 130/72 (91) 98 Physical Exam GENERAL: This is a well-nourished, well-developed patient, in no apparent distress. SKIN: Right fourth interspace necrosis. EYES: Pupils equal round and reactive. ENT: Airway patent. NECK: Trachea midline. RESPIRATORY: Non labored breathing. MUSCULOSKELETAL: No calf tenderness. Negative Homans sign bilaterally. NEUROLOGICAL: Awake and alert. Normal speech. Vasc: DP non palpable/PT non palpable to RLE. 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 Neuro: Hyperalgesia noted to right foot. Gross sensation intact. Derm: Eschar/necrosis noted to right fourth interspace at site of digital amputation. No drainage noted, + probe to bone, +exposed bone. Mild erythema surrounding surgical site. Decreased temperature, cool digits to RLE. MSK: Right fourth digit amputation. Pain on palpation globally to RLE. Pain on palpation to ulceration/surgical site right foot. Laboratory Laboratory Tests Test 12/09/17 07:17 White Blood Count 9.4 Red Blood Count 4.44 Hemoglobin 9.6 Hematocrit 30.6 Mean Corpuscular Volume 68.8 Mean Corpuscular Hemoglobin 21.6 Mean Corpuscular Hemoglobin Concent 31.3 Red Cell Distribution Width 19.5 Platelet Count 329 Mean Platelet Volume 10.4 Neutrophils (%) (Auto) 80.4 Lymphocytes (%) (Auto) 5.5 Monocytes (%) (Auto) 9.4 Eosinophils (%) (Auto) 3.3 Basophils (%) (Auto) 1.4 Neutrophils # (Auto) 7.5 Lymphocytes # (Auto) 0.5 Monocytes # (Auto) 0.9 Eosinophils # (Auto) 0.3 Basophils # (Auto) 0.1 CBC Comment AUTO DIFF Differential Comment AUTO DIFF CONFIRMED Platelet Estimate NORMAL Platelet Morphology Comment ENLARGED Ovalocytes 1+ Blood Urea Nitrogen 10 Creatinine 0.98 Random Glucose 83 Total Protein 7.3 Albumin 2.9 Calcium Level 9.2 Alkaline Phosphatase 79 Aspartate Amino Transf (AST/SGOT) 5 Alanine Aminotransferase (ALT/SGPT) 12 Total Bilirubin 0.3 Sodium Level 139 Potassium Level 3.8 Chloride Level 105 Carbon Dioxide Level 25.3 Anion Gap 9 Estimat Glomerular Filtration Rate 81 Result Diagram: 12/09/17 0712/09/17 0717 Imaging Last Impressions Foot X-Ray 12/08/17 0000 Signed Impressions: Service Date/Time: Friday, December 08, 2017 16:20 - CONCLUSION: New lucency involving the head of the right fourth metatarsal and possibly the head of the right third metatarsal. If there is strong clinical concern for osteomyelitis, MRI of the foot with contrast would be more sensitive in this patient. Martinez Avery MD Foot MRI 12/08/17 0000 Signed Impressions: Service Date/Time: Friday, December 08, 2017 19:51 - CONCLUSION: There is a focal bone marrow edema along with some enhancement involving the distal fourth metatarsal with adjacent soft tissue swelling. These findings are suspicious for focal osteomyelitis of the distal metatarsal. Petr Malave MD Assessment and Plan Assessment and Plan 52 year old male with right fourth interspace necrosis and OM noted to third metatarsal Patient examined and evaluated with all questions answered Appreciate Vasc consult - will discuss with Dr. Bryant Agree with Dr. Bryant at this point revascularization will come before any surgical intervention by foot and ankle/podiatry, although per Dr. Bryant high likelihood of requiring a BKA Will place wound care orders Apply betadine and DSD to fourth interspace daily WBAT right foot in surgical shoe Will continue to follow patient LissetthenryNi DPM Dec 09, 2017 22:48
[2017-12-10] MEDS: MORPHINE SULFATE 4 MG/ML INJ IV PUSH PRN ×5 (00:02→20:09)
[2017-12-10 03:01] VITALS: BP 109/57; PULSE 67; RESP 18; TEMP 98; O2SAT 97
[2017-12-10] MEDS: PIPERACIL-TAZO 3.375 GM PREMIX 50 ML IV SCH ×4 (05:26→20:08)
[2017-12-10] MEDS: SODIUM CHLOR 0.9% 1000 ML INJ 1,000 ML IV SCH ×3 (05:27→20:07)
[2017-12-10 08:37] VITALS: BP 113/58; PULSE 62; RESP 18; TEMP 97.6; O2SAT 99
[2017-12-10] MEDS ORDERED: PHARMACY ORDERED LAB ONE (08:45)
[2017-12-10] MEDS: PANTOPRAZOLE SOD 40 MG DELAYED RELEASE TAB PO SCH (09:46)
[2017-12-10] MEDS: FERROUS SULFATE 325 MG (65 MG ELEMENTAL IRON) TAB PO SCH ×2 (09:46→20:08)
[2017-12-10] MEDS: SODIUM CHLORIDE 0.9% FLUSH 10 ML FLUSH IV FLUSH SCH ×2 (09:47→20:07)
[2017-12-10] MEDS: VANCOMYCIN INJ 1,250 MG in SODIUM CHLOR 0.9% 250 ML INJ 250 ML IV SCH ×2 (10:13→20:57)
[2017-12-10 12:00] VITALS: BP 131/66; PULSE 58; RESP 18; TEMP 97.6; O2SAT 99
--- NOTE | 2017-12-10 12:08 | PD.VS.PN ---
Subjective Subjective/Hospital Course Afebrile 52/M s/p diagnostic R LE angiogram (11/30/17) Pt with a hx of severe RIGHT LE vascular arterial occlusive disease Pt evaluated in the ED c/o Right foot pain Pt appears to be more comfortable this am Pain controlled LE warm w/ motor intact Wound stable Objective Vitals/I&O Date Time Temp Pulse Resp B/P (MAP) Pulse Ox O2 Delivery O2 Flow Rate FiO2 12/10/17 08:37 97.6 62 18 113/58 (76) 99 12/10/17 03:01 98.0 67 18 109/57 (74) 97 12/09/17 19:04 98.1 67 18 130/65 (86) 100 12/09/17 15:51 98.1 66 18 132/67 (88) 100 12/09/17 12:55 97.8 61 18 113/57 (75) 100 12/10/17 12/10/17 12/10/17 07:00 15:00 23:00 Output Total 1150 ml Balance -1150 ml Physical Exam GENERAL: A&Ox3, GCS 15, NAD SKIN: LE Warm and dry R 4th toe amputation site necrotic w/o odor CARDIOVASCULAR: RRR w/o M/G/R RESPIRATORY: Breath sounds equal bilaterally. No accessory muscle use. MUSCULOSKELETAL: No cyanosis, or edema. R foot painful w/ palpation NON palpable R DP/PT Laboratory Laboratory Tests Test 12/10/17 08:45 Vancomycin Level Trough 15.6 Assessment and Plan Assessment: (1) Ischemic rest pain of lower extremity (2) Osteomyelitis Status: Acute Plan Pt with severe infrageniculate R LE arterial occlusive disease, poor revascularization options given no targets identified on angiography Plan Pain control OOB and WBAT Recommend systemic anticoagulation Discussed w/ pt - Revascularization options are limited Planning surgical exploration of tibial vessels and attempt LE bypass for early next week w/ Dr. Annette Stahl [employer] [facility] [phone] Problem Qualifiers (1) Osteomyelitis: Qualified Codes: M86.071 - Acute hematogenous osteomyelitis, right ankle and foot Susie Stahl Dec 10, 2017 12:08
[2017-12-10 16:00] VITALS: BP 113/64; PULSE 73; RESP 18; TEMP 97.4; O2SAT 97
--- NOTE | 2017-12-10 16:49 | HHI.PR ---
Subjective Remarks Follow up for right lower ext PAD. Patient complains of throbbing pain from the right foot. No fever, chills. Tolerating diet well. Objective Vitals Vital Signs Date Time Temp Pulse Resp B/P (MAP) Pulse Ox O2 Delivery O2 Flow Rate FiO2 12/10/17 12:00 97.6 58 18 131/66 (87) 99 12/10/17 08:37 97.6 62 18 113/58 (76) 99 12/10/17 03:01 98.0 67 18 109/57 (74) 97 12/09/17 19:04 98.1 67 18 130/65 (86) 100 I/O 12/09/17 12/09/17 12/09/17 12/10/17 12/10/17 12/10/17 07:00 15:00 23:00 07:00 15:00 23:00 Intake Total 50 ml Output Total 400 ml 1150 ml Balance -400 ml 50 ml -1150 ml Intake IV Total 50 ml Output Urine Total 400 ml 1150 ml Result Diagram: 12/09/1771612/09/1717 Imaging Last Impressions Foot X-Ray 12/08/17 0000 Signed Impressions: Service Date/Time: Friday, December 08, 2017 16:20 - CONCLUSION: New lucency involving the head of the right fourth metatarsal and possibly the head of the right third metatarsal. If there is strong clinical concern for osteomyelitis, MRI of the foot with contrast would be more sensitive in this patient. Martinez Avery MD Foot MRI 12/08/17 0000 Signed Impressions: Service Date/Time: Friday, December 08, 2017 19:51 - CONCLUSION: There is a focal bone marrow edema along with some enhancement involving the distal fourth metatarsal with adjacent soft tissue swelling. These findings are suspicious for focal osteomyelitis of the distal metatarsal. Petr Malave MD Objective Remarks GENERAL: AOX3, NAD. SKIN: Warm and dry. HEAD: Normocephalic. EYES: No scleral icterus. No injection or drainage. NECK: Supple, trachea midline. No JVD or lymphadenopathy. CARDIOVASCULAR: Regular rate and rhythm without murmurs, gallops, or rubs. RESPIRATORY: Breath sounds equal bilaterally. No accessory muscle use. GASTROINTESTINAL: Abdomen soft, non-tender, nondistended. MUSCULOSKELETAL: No cyanosis, or edema. Right lower ext distal foot is cold to touch. BACK: Nontender without obvious deformity. No CVA tenderness. Procedures None. 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 Podiatry and vascular surgery have evaluated patient. - Right lower ext arterial occlusive disease - Possible focal osteomyelitis - MRI shows focal osteomyelitis. - Currently on Acetaminophen, [place] and Morphine PRN for pain control. - Will add Gabapentin 200mg TID as well. - Currently on Vanc and Zosyn IV. If patient goes home, PO Doxycycline could be considered. - Discussed with vascular surgery - surgical intervention planned for 2017. - Will start patient on Lovenox 60mg BID (patient is 63.9 kg). - Chronic anemia - Duodenal and Rectal ulcer - Continue Iron supplementation as well as Protonix. Full code. Lovenox. Discharge plan: If we can arrange Lovenox 60mg BID, patient can be discharged home. He will need to be scheduled for outpatient surgery by Vascular surgery on Thursday12/13/2017. Should he go home, he will need to take his morning dose of Lovenox on 12/13/2017 Lovenox dose then stop until evaluated by Vascular surgery. Discussed with Vascular surgery. Siva Washington DO Dec 10, 2017 16:48
[2017-12-10] MEDS ORDERED: GABAPENTIN 100 MG CAP PO ONE (18:30)
[2017-12-10] MEDS: ENOXAPARIN SODIUM 60 MG/0.6 ML SYRINGE SQ SCH (18:42)
[2017-12-10 20:06] VITALS: BP 139/63; PULSE 82; RESP 18; TEMP 98.2; O2SAT 99
[2017-12-11] VITALS: BP 145/65; PULSE 66; RESP 22; TEMP 97.8; O2SAT 100
[2017-12-11] MEDS: MORPHINE SULFATE 4 MG/ML INJ IV PUSH PRN ×3 (00:14→08:25)
[2017-12-11] MEDS: PIPERACIL-TAZO 3.375 GM PREMIX 50 ML IV SCH ×4 (03:36→21:30)
[2017-12-11 04:00] VITALS: BP 122/70; PULSE 68; RESP 20; TEMP 98.9; O2SAT 99
[2017-12-11] MEDS: SODIUM CHLOR 0.9% 1000 ML INJ 1,000 ML IV SCH (05:25)
[2017-12-11] MEDS: ENOXAPARIN SODIUM 60 MG/0.6 ML SYRINGE SQ SCH ×2 (05:25→17:26)
[2017-12-11 08:08] VITALS: BP 121/65; PULSE 67; RESP 18; TEMP 97.5; O2SAT 100
[2017-12-11 08:08] LABS: CREATININE 1.13 MG/DL (0.60-1.30)
[2017-12-11] MEDS: GABAPENTIN 100 MG CAP PO SCH ×3 (08:24→17:26)
[2017-12-11] MEDS: SODIUM CHLORIDE 0.9% FLUSH 10 ML FLUSH IV FLUSH SCH ×2 (08:24→21:30)
[2017-12-11] MEDS: PANTOPRAZOLE SOD 40 MG DELAYED RELEASE TAB PO SCH (08:24)
[2017-12-11] MEDS: FERROUS SULFATE 325 MG (65 MG ELEMENTAL IRON) TAB PO SCH ×2 (08:24→21:30)
[2017-12-11] MEDS: VANCOMYCIN INJ 1,250 MG in SODIUM CHLOR 0.9% 250 ML INJ 250 ML IV SCH ×2 (09:15→22:07)
[2017-12-11 12:08] VITALS: BP 138/81; PULSE 64; RESP 18; TEMP 98.1; O2SAT 100
[2017-12-11] MEDS: ACETAMINOPHEN/HYDROcodone 325 MG/10 MG TAB PO PRN ×3 (12:17→21:33)
--- NOTE | 2017-12-11 15:12 | HHI.PR ---
Subjective Remarks Follow-up PAD and right foot osteomyelitis. Continues to have foot pain. Discussed with nursing Objective Vitals Vital Signs Date Time Temp Pulse Resp B/P (MAP) Pulse Ox O2 Delivery O2 Flow Rate FiO2 12/11/17 13:17 18 12/11/17 12:08 98.1 64 18 138/81 (100) 100 12/11/17 08:30 16 12/11/17 08:08 97.5 67 18 121/65 (83) 100 12/11/17 04:00 98.9 68 20 122/70 (87) 99 12/11/17 00:00 97.8 66 22 145/65 (91) 100 12/10/17 20:06 98.2 82 18 139/63 (88) 99 12/10/17 16:00 97.4 73 18 113/64 (80) 97 I/O 12/10/17 12/10/17 12/10/17 12/11/17 12/11/17 12/11/17 07:00 15:00 23:00 07:00 15:00 23:00 Intake Total 1792.5 ml 1500 ml Output Total 1150 ml 500 ml 1200 ml Balance -1150 ml 1292.5 ml 300 ml Intake Oral 480 ml 450 ml IV Total 1312.5 ml 1050 ml Output Urine Total 1150 ml 500 ml 1200 ml Result Diagram: 12/09/17 0717 12/11/17 0605 Imaging Last Impressions Foot X-Ray 12/08/17 0000 Signed Impressions: Service Date/Time: Friday, December 08, 2017 16:20 - CONCLUSION: New lucency involving the head of the right fourth metatarsal and possibly the head of the right third metatarsal. If there is strong clinical concern for osteomyelitis, MRI of the foot with contrast would be more sensitive in this patient. Martinez Avery MD Foot MRI 12/08/17 0000 Signed Impressions: Service Date/Time: Friday, December 08, 2017 19:51 - CONCLUSION: There is a focal bone marrow edema along with some enhancement involving the distal fourth metatarsal with adjacent soft tissue swelling. These findings are suspicious for focal osteomyelitis of the distal metatarsal. Petr Malave MD Objective Remarks GENERAL: AOX3, NAD. SKIN: Warm and dry. CARDIOVASCULAR: Regular rate and rhythm without murmurs, gallops, or rubs. RESPIRATORY: Breath sounds equal bilaterally. No accessory muscle use. GASTROINTESTINAL: Abdomen soft, non-tender, nondistended. MUSCULOSKELETAL: No cyanosis, or edema. Right lower ext distal foot is cold to touch. BACK: Nontender without obvious deformity. No CVA tenderness. Procedures None. 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 Podiatry and vascular surgery have evaluated patient. Right lower ext arterial occlusive disease. Patient will need vascular intervention scheduled 12/14 prior to surgical procedures by podiatry. Continue Lovenox Possible focal osteomyelitis. Continue IV vancomycin and Zosyn and pain management with [place] and morphine. Also on gabapentin. Consulted ID Chronic anemia. Stable Duodenal and Rectal ulcer. Stable continue Iron supplementation as well as Protonix. DVT prophylaxis with Lovenox. Discharge Planning Discharge when cleared by ID. Lovenox needs to be arranged. Case management to follow-up or schedule by vascular surgery Danish Rojas MD Dec 11, 2017 15:12
[2017-12-11 18:08] VITALS: BP 130/74; PULSE 66; RESP 18; TEMP 98; O2SAT 100
--- NOTE | 2017-12-11 19:42 | MB ---
cc: ANANYA PACE MD DATE OF CONSULTATION: 12/11/2017. REASON FOR CONSULTATION: Osteomyelitis of the right fourth metatarsal. Please evaluate. REQUESTING PHYSICIAN: Dr. Rojas. HISTORY OF PRESENT ILLNESS: This is a 52-year-old white male who was recently admitted to the hospital in November and he underwent amputation of the right fourth toe for gangrene. The surgery was performed on 11/28/2017. The patient is now readmitted because he has necrotic changes at the surgical site. The patient was seen by the airbrush artist and was advised to go back to the hospital for readmission and for re-evaluation because of the appearance of the foot which shows necrotic changes. The patient is complaining of severe pain in the right foot. The pain is located in the area of surgery and also at the plantar aspect of the forefoot. The patient denies nausea, vomiting, fever or chills. He is afebrile. White blood cell count is normal. An MRI of the foot was performed and it showed focal bone marrow edema along with some enhancement involving the distal fourth metatarsal with adjacent soft tissue swelling. The findings appear to be suspicious for focal osteomyelitis of the distal metatarsal. PAST MEDICAL HISTORY: 1. History of osteomyelitis of the right foot. 2. Right fourth toe amputation. 3. No history of diabetes mellitus. ALLERGIES: NO KNOWN DRUG ALLERGIES. MEDICATIONS: 1. Neurontin. 2. [place] 10 PRN. 3. Lovenox. 4. Vancomycin. 5. Piperacillin / tazobactam. 6. Morphine sulfate PRN. 7. Protonix. 8. Ferrous sulfate. SOCIAL HISTORY: No tobacco. Positive alcohol use daily. Denies illicit drugs. FAMILY HISTORY: Noncontributory. REVIEW OF SYSTEMS: Negative on a ten-point review except for pain in the right foot. PHYSICAL EXAMINATION: GENERAL: This is a slender well-developed male who is in no acute distress. He is awake and alert and oriented. VITAL SIGNS: Temperature 98.1, blood pressure 138/81, respirations 18, heart rate 64 HEAD, EYES, EARS, NOSE, THROAT: Head atraumatic. Extraocular movements grossly intact, pupils reactive to light. No icterus. Oropharynx moist mucosa. No lesions. NECK: The neck is supple without adenopathy or swelling. LUNGS: Clear breath sounds bilateral. HEART: Regular S1 and S2. No murmurs, rubs or gallops. ABDOMEN: Bowel sounds present, soft, nontender. RECTAL: Not performed. EXTREMITIES: The right foot has sutures in place in the interspace between toes three and five in the location where the fourth toe was resected. There is necrotic tissue along the sutures involving the inner aspect of the fifth toe and third toe and the wound bed from the fourth toe incision. There are purulent droplets on palpation of the foot and there is a wet appearance of the area within the crater where the incision is located. The patient also has some pale discoloration of the tissue beyond the incision at the plantar aspect of the foot and this extends out circumferentially about 1 cm from the sutures. The foot is warm and has no visible erythema. The other extremities have no clubbing, cyanosis or edema. SKIN: No rash. NEUROLOGIC: Nonfocal. PSYCHIATRIC: The patient is calm and cooperative. LABORATORY DATA: WBCs 9.4, platelet count 329,000, hemoglobin 9.6. Sedimentation rate is 67. Creatinine 1.13, estimated GFR is 69. IMPRESSION: Osteomyelitis involving the fourth metatarsal beyond the location of resected fourth toe. The patient is status post recent resection of the fourth toe for ischemic gangrene. RECOMMENDATIONS: 1. Obtain culture of the drainage from the wound at the right foot. 2. Continue Vancomycin. 3. Continue piperacillin / tazobactam. 4. Follow up on the cultures for antibiotic adjustment. 5. Surgical intervention to be determined by podiatry and vascular surgery. Thank you for this consultation. The patient's progress will be monitored and further recommendations will be given upon follow up if necessary. Ananya Pace MD FD/FRANCISCA /3:17 PM /5:04 PM
[2017-12-11 20:00] VITALS: BP 134/75; PULSE 76; RESP 20; TEMP 97.6; O2SAT 99
[2017-12-12] VITALS: BP 123/58; PULSE 70; RESP 20; TEMP 97.3; O2SAT 95
[2017-12-12] MEDS: ACETAMINOPHEN/HYDROcodone 325 MG/10 MG TAB PO PRN ×5 (02:40→20:10)
[2017-12-12] MEDS: PIPERACIL-TAZO 3.375 GM PREMIX 50 ML IV SCH ×4 (02:40→20:10)
[2017-12-12 04:00] VITALS: BP 133/62; PULSE 68; RESP 20; TEMP 97.7; O2SAT 98
[2017-12-12] MEDS: ENOXAPARIN SODIUM 60 MG/0.6 ML SYRINGE SQ SCH ×2 (06:29→17:52)
[2017-12-12] MEDS ORDERED: PHARMACY ORDERED LAB ONE (08:45)
[2017-12-12 08:46] VITALS: BP 132/60; PULSE 57; RESP 20; TEMP 97.6; O2SAT 97
[2017-12-12] MEDS: GABAPENTIN 100 MG CAP PO SCH ×3 (08:58→17:52)
[2017-12-12] MEDS: PANTOPRAZOLE SOD 40 MG DELAYED RELEASE TAB PO SCH (08:58)
[2017-12-12] MEDS: SODIUM CHLORIDE 0.9% FLUSH 10 ML FLUSH IV FLUSH SCH ×2 (08:59→20:10)
[2017-12-12] MEDS: FERROUS SULFATE 325 MG (65 MG ELEMENTAL IRON) TAB PO SCH ×2 (08:59→20:10)
[2017-12-12] MEDS: VANCOMYCIN INJ 1,250 MG in SODIUM CHLOR 0.9% 250 ML INJ 250 ML IV SCH ×2 (09:02→21:49)
[2017-12-12 12:26] VITALS: BP 122/72; PULSE 73; RESP 20; TEMP 97.5; O2SAT 100
[2017-12-12 16:43] VITALS: BP 137/78; PULSE 67; RESP 20; TEMP 98.4; O2SAT 99
--- NOTE | 2017-12-12 17:13 | HHI.PR ---
Subjective Remarks Follow-up right foot osteomyelitis and PAD. Continues to have foot pain. Discussed with nursing Objective Vitals Vital Signs Date Time Temp Pulse Resp B/P (MAP) Pulse Ox O2 Delivery O2 Flow Rate FiO2 12/12/17 16:43 98.4 67 20 137/78 (97) 99 12/12/17 15:58 18 12/12/17 12:26 97.5 73 20 122/72 (89) 100 12/12/17 08:46 97.6 57 20 132/60 (84) 97 12/12/17 04:00 97.7 68 20 133/62 (85) 98 12/12/17 00:00 97.3 70 20 123/58 (79) 95 12/11/17 20:00 97.6 76 20 134/75 (94) 99 12/11/17 18:08 98.0 66 18 130/74 (92) 100 I/O 12/11/17 12/11/17 12/11/17 12/12/17 12/12/17 12/12/17 07:00 15:00 23:00 07:00 15:00 23:00 Intake Total 1500 ml 520 ml 120 ml 720 ml Output Total 1200 ml 2600 ml 3100 ml 1225 ml Balance 300 ml -2080 ml -2980 ml -505 ml Intake Oral 450 ml 520 ml 120 ml 720 ml IV Total 1050 ml Output Urine Total 1200 ml 2600 ml 3100 ml 1225 ml # Bowel Movements 2 1 Result Diagram: 12/09/17 0717 12/11/17 0605 Objective Remarks GENERAL: AOX3, NAD. SKIN: Warm and dry. CARDIOVASCULAR: Regular rate and rhythm without murmurs, gallops, or rubs. RESPIRATORY: Breath sounds equal bilaterally. No accessory muscle use. GASTROINTESTINAL: Abdomen soft, non-tender, nondistended. MUSCULOSKELETAL: No cyanosis, or edema. Right lower ext distal foot is warm. BACK: Nontender without obvious deformity. No CVA tenderness. Procedures None. 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 Podiatry and vascular surgery have evaluated patient. Right lower ext arterial occlusive disease. Patient will need vascular intervention scheduled 12/14 prior to surgical procedures by podiatry. Continue Lovenox Possible focal osteomyelitis. Continue IV vancomycin and Zosyn and pain management with [place] and morphine. Also on gabapentin. Consulted ID, follow culture Chronic anemia. Stable Duodenal and Rectal ulcer. Stable continue Iron supplementation as well as Protonix. Monitor for bleeding while on anticoagulation DVT prophylaxis with Lovenox. Discharge Planning Discharge when cleared by ID. Lovenox needs to be arranged. Case management to follow-up OR schedule by vascular surgery Danish Rojas MD Dec 12, 2017 17:13
[2017-12-12 20:00] VITALS: BP 126/89; PULSE 69; RESP 18; TEMP 97.9; O2SAT 98
[2017-12-13] VITALS: BP 113/56; PULSE 62; RESP 18; TEMP 97.9; O2SAT 98
[2017-12-13] MEDS: ACETAMINOPHEN/HYDROcodone 325 MG/10 MG TAB PO PRN ×6 (00:11→21:37)
[2017-12-13 04:00] VITALS: BP 116/56; PULSE 58; RESP 18; TEMP 98; O2SAT 96
[2017-12-13] MEDS: PIPERACIL-TAZO 3.375 GM PREMIX 50 ML IV SCH ×4 (04:17→21:38)
[2017-12-13] MEDS: ENOXAPARIN SODIUM 60 MG/0.6 ML SYRINGE SQ SCH ×2 (06:28→17:46)
[2017-12-13] MEDS: VANCOMYCIN INJ 1,250 MG in SODIUM CHLOR 0.9% 250 ML INJ 250 ML IV SCH ×2 (08:10→22:18)
[2017-12-13] MEDS: GABAPENTIN 100 MG CAP PO SCH ×3 (08:10→17:46)
[2017-12-13] MEDS: SODIUM CHLORIDE 0.9% FLUSH 10 ML FLUSH IV FLUSH SCH ×2 (08:10→21:38)
[2017-12-13] MEDS: PANTOPRAZOLE SOD 40 MG DELAYED RELEASE TAB PO SCH (08:11)
[2017-12-13] MEDS: FERROUS SULFATE 325 MG (65 MG ELEMENTAL IRON) TAB PO SCH ×2 (08:11→21:37)
[2017-12-13 08:49] VITALS: BP 111/68; PULSE 62; RESP 20; TEMP 98.5; O2SAT 99
[2017-12-13 10:14] LABS: CREATININE 1.04 MG/DL (0.60-1.30)
[2017-12-13 12:22] VITALS: BP 109/69; PULSE 72; RESP 20; TEMP 97.4; O2SAT 94
--- NOTE | 2017-12-13 14:19 | HHI.PR ---
Subjective Remarks Follow-up osteomyelitis of the right foot and PAD. Continues to have foot pain. Discussed with RN Objective Vitals Vital Signs Date Time Temp Pulse Resp B/P (MAP) Pulse Ox O2 Delivery O2 Flow Rate FiO2 12/13/17 12:22 97.4 72 20 109/69 (82) 94 12/13/17 09:11 18 12/13/17 08:49 98.5 62 20 111/68 (82) 99 12/13/17 04:00 98.0 58 18 116/56 (76) 96 12/13/17 04:00 Room Air 12/13/17 00:00 97.9 62 18 113/56 (75) 98 12/13/17 00:00 Room Air 12/12/17 20:00 97.9 69 18 126/89 (101) 98 12/12/17 20:00 Room Air 12/12/17 16:43 98.4 67 20 137/78 (97) 99 I/O 12/12/17 12/12/17 12/12/17 12/13/17 12/13/17 12/13/17 07:00 15:00 23:00 07:00 15:00 23:00 Intake Total 120 ml 720 ml 312 ml 1120 ml Output Total 3100 ml 1225 ml 2600 ml Balance -2980 ml -505 ml 312 ml -1480 ml Intake Oral 120 ml 720 ml 1070 ml IV Total 312 ml 50 ml Output Urine Total 3100 ml 1225 ml 2600 ml # Bowel Movements 1 1 Result Diagram: 12/09/17 0717 12/13/17 0905 Objective Remarks GENERAL: AOX3, NAD. SKIN: Warm and dry. CARDIOVASCULAR: Regular rate and rhythm without murmurs, gallops, or rubs. RESPIRATORY: Breath sounds equal bilaterally. No accessory muscle use. GASTROINTESTINAL: Abdomen soft, non-tender, nondistended. MUSCULOSKELETAL: No cyanosis, or edema. Right lower ext distal foot is warm. Necrotic changes over surgical area. Sutures in place. Pale discoloration in the plantar surface in the area of of 4th distal metatarsal BACK: Nontender without obvious deformity. No CVA tenderness. Procedures None. 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 Podiatry and vascular surgery have evaluated patient. Right lower ext arterial occlusive disease. Patient will need vascular intervention scheduled 12/14 tomorrow prior to surgical procedures by podiatry. Continue Lovenox Possible focal osteomyelitis. Continue IV vancomycin and Zosyn and pain management with [place] and morphine. Also on gabapentin. Consulted ID, follow culture Chronic anemia. Stable Duodenal and Rectal ulcer. Stable continue Iron supplementation as well as Protonix. Monitor for bleeding while on anticoagulation DVT prophylaxis with Lovenox. Discharge Planning Discharge when cleared by ID. Lovenox needs to be arranged. Case management to follow-up OR schedule by vascular surgery Danish Rojas MD Dec 13, 2017 14:19
[2017-12-13 20:00] VITALS: BP 131/76; PULSE 63; RESP 16; TEMP 97.3; TEMP 98.6; O2SAT 100
[2017-12-14] VITALS: BP 108/65; PULSE 70; RESP 18; TEMP 97.8; O2SAT 98
[2017-12-14] MEDS: ACETAMINOPHEN/HYDROcodone 325 MG/10 MG TAB PO PRN ×6 (01:39→21:51)
[2017-12-14 04:00] VITALS: BP 115/60; PULSE 64; RESP 18; TEMP 98; O2SAT 98
[2017-12-14] MEDS: PIPERACIL-TAZO 3.375 GM PREMIX 50 ML IV SCH ×4 (04:02→21:01)
[2017-12-14] MEDS: SODIUM CHLORIDE 0.9% FLUSH 10 ML FLUSH IV FLUSH PRN (04:03)
[2017-12-14] MEDS: MORPHINE SULFATE 4 MG/ML INJ IV PUSH PRN (04:03)
[2017-12-14] MEDS: ENOXAPARIN SODIUM 60 MG/0.6 ML SYRINGE SQ SCH ×2 (06:29→18:05)
[2017-12-14 08:06] VITALS: BP 128/77; PULSE 64; RESP 17; TEMP 97.4; O2SAT 97
[2017-12-14] MEDS: VANCOMYCIN INJ 1,250 MG in SODIUM CHLOR 0.9% 250 ML INJ 250 ML IV SCH ×2 (08:29→21:50)
[2017-12-14] MEDS: PANTOPRAZOLE SOD 40 MG DELAYED RELEASE TAB PO SCH (08:30)
[2017-12-14] MEDS: FERROUS SULFATE 325 MG (65 MG ELEMENTAL IRON) TAB PO SCH ×2 (08:30→21:01)
[2017-12-14] MEDS: SODIUM CHLORIDE 0.9% FLUSH 10 ML FLUSH IV FLUSH SCH ×2 (08:30→21:01)
[2017-12-14] MEDS: GABAPENTIN 100 MG CAP PO SCH ×4 (08:30→21:02)
--- NOTE | 2017-12-14 08:47 | PD.VS.PN ---
Subjective Subjective/Hospital Course Afebrile 52/M s/p diagnostic R LE angiogram (11/30/17) Pt with a hx of severe RIGHT LE vascular arterial occlusive disease Pt resting comfortably in bed Pain controlled R foot wound stable LE warm w/ motor intact Objective Vitals/I&O Date Time Temp Pulse Resp B/P (MAP) Pulse Ox O2 Delivery O2 Flow Rate FiO2 12/14/17 08:06 97.4 64 17 128/77 (94) 97 12/14/17 04:00 Room Air 12/14/17 04:00 98.0 64 18 115/60 (78) 98 12/14/17 00:00 97.8 70 18 108/65 (79) 98 12/14/17 00:00 Room Air 12/13/17 20:00 98.6 63 16 131/76 (94) 100 12/13/17 20:00 Room Air 12/13/17 20:00 97.3 12/13/17 18:47 18 12/13/17 12:22 97.4 72 20 109/69 (82) 94 12/13/17 08:49 98.5 62 20 111/68 (82) 99 12/14/17 12/14/17 12/14/17 07:00 15:00 23:00 Intake Total 1425 ml Output Total 1750 ml Balance -325 ml Physical Exam GENERAL: A&Ox3, GCS 15, NAD SKIN: LE Warm and dry R 4th toe amputation site necrotic w/o odor CARDIOVASCULAR: RRR w/o M/G/R RESPIRATORY: Breath sounds equal bilaterally. No accessory muscle use. MUSCULOSKELETAL: No cyanosis, or edema. R foot less painful w/ palpation NON palpable R DP/PT Laboratory Laboratory Tests Test 12/13/17 09:05 Creatinine 1.04 Estimat Glomerular Filtration Rate 76 Date/Time Source Procedure Growth Status 12/11/17 15:11 Wound Foot Gram Stain - Final Resulted 12/11/17 15:11 Wound Foot Wound Culture - Preliminary Resulted Assessment and Plan Assessment: (1) Ischemic rest pain of lower extremity (2) Osteomyelitis Status: Acute Plan Pt with severe infrageniculate R LE arterial occlusive disease, poor revascularization options given no targets identified on angiography Plan Pt scheduled w/ Dr. Bryant for surgical exploration of tibial vessels and attempt LE bypass (12/14/17) Consent signed and placed in the chart Continue Pain control NPO HOLD Lovenox Susie Favio [facility] [phone] Problem Qualifiers (1) Osteomyelitis: Qualified Codes: M86.071 - Acute hematogenous osteomyelitis, right ankle and foot Susie Stahl Dec 14, 2017 08:47
[2017-12-14 09:58] LABS: BASOPHIL % 0.4 % (0.0-2.0); EOSINOPHIL # 0.5 TH/MM3 (0-0.4); EOSINOPHIL % 9.2 % (0.0-4.0); HEMOGLOBIN 9.6 GM/DL (13.0-17.0); LYMPH % 23.7 % (9.0-44.0); LYMPHOCYTE # 1.3 TH/MM3 (1.0-4.8); MEAN CELL VOLUME 69.6 FL (80.0-100.0); MEAN CORPUSCULAR HEMOGLOBIN 21.6 PG (27.0-34.0); MEAN CORPUSCULAR HGB CONC 31.1 % (32.0-36.0); MEAN PLATELET VOLUME 9.4 FL (7.0-11.0); MONO % 12.3 % (0.0-8.0); MONOCYTE # 0.7 TH/MM3 (0-0.9); NEUT % 54.4 % (16.0-70.0); PLATELET COUNT 421 TH/MM3 (150-450); RED BLOOD COUNT 4.46 MIL/MM3 (4.50-5.90); WHITE BLOOD COUNT 5.5 TH/MM3 (4.0-11.0)
[2017-12-14 10:28] LABS: BICARBONATE 28.5 MEQ/L (21.0-32.0); CALCIUM 9.7 MG/DL (8.5-10.1); CREATININE 0.94 MG/DL (0.60-1.30); MAGNESIUM 2.2 MG/DL (1.5-2.5)
--- NOTE | 2017-12-14 10:32 | HHI.PR ---
Subjective Remarks Follow-up PAD and right foot osteomyelitis. Patient currently n.p.o. for vascular intervention today. Continues to foot pain. Discussed with nursing Objective Vitals Vital Signs Date Time Temp Pulse Resp B/P (MAP) Pulse Ox O2 Delivery O2 Flow Rate FiO2 12/14/17 10:11 Room Air 12/14/17 08:06 97.4 64 17 128/77 (94) 97 12/14/17 04:00 Room Air 12/14/17 04:00 98.0 64 18 115/60 (78) 98 12/14/17 00:00 97.8 70 18 108/65 (79) 98 12/14/17 00:00 Room Air 12/13/17 20:00 98.6 63 16 131/76 (94) 100 12/13/17 20:00 Room Air 12/13/17 20:00 97.3 12/13/17 18:47 18 12/13/17 12:22 97.4 72 20 109/69 (82) 94 I/O 12/13/17 12/13/17 12/13/17 12/14/17 12/14/17 12/14/17 07:00 15:00 23:00 07:00 15:00 23:00 Intake Total 1120 ml 50 ml 1425 ml Output Total 2600 ml 1750 ml Balance -1480 ml 50 ml -325 ml Intake Oral 1070 ml 1125 ml IV Total 50 ml 50 ml 300 ml Output Urine Total 2600 ml 1750 ml # Bowel Movements 1 1 Result Diagram: 12/14/1790412/14/17 0905 Imaging Last Impressions Foot X-Ray 12/08/17 0000 Signed Impressions: Service Date/Time: Friday, December 08, 2017 16:20 - CONCLUSION: New lucency involving the head of the right fourth metatarsal and possibly the head of the right third metatarsal. If there is strong clinical concern for osteomyelitis, MRI of the foot with contrast would be more sensitive in this patient. Martinez Avery MD Foot MRI 12/08/17 0000 Signed Impressions: Service Date/Time: Friday, December 08, 2017 19:51 - CONCLUSION: There is a focal bone marrow edema along with some enhancement involving the distal fourth metatarsal with adjacent soft tissue swelling. These findings are suspicious for focal osteomyelitis of the distal metatarsal. Petr Malave MD Objective Remarks GENERAL: AOX3, NAD. SKIN: Warm and dry. CARDIOVASCULAR: Regular rate and rhythm without murmurs, gallops, or rubs. RESPIRATORY: Breath sounds equal bilaterally. No accessory muscle use. GASTROINTESTINAL: Abdomen soft, non-tender, nondistended. MUSCULOSKELETAL: No cyanosis, or edema. Right lower ext distal foot is warm. Necrotic changes over surgical area. Sutures in place. Pale discoloration in the plantar surface in the area of of 4th distal metatarsal BACK: Nontender without obvious deformity. No CVA tenderness. 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 Podiatry and vascular surgery have evaluated patient. Right lower ext arterial occlusive disease. Patient will need vascular intervention scheduled 12/14 today prior to surgical procedures by podiatry. Continue Lovenox Possible focal osteomyelitis. Wound culture positive for MRSA continue IV vancomycin and Zosyn and pain management with Henderson and morphine. Also on gabapentin. Consulted ID Chronic anemia. Stable Duodenal and Rectal ulcer. Stable continue Iron supplementation as well as Protonix. Monitor for bleeding while on anticoagulation DVT prophylaxis with Lovenox. Discharge Planning Discharge when cleared by ID, Podiatry and Vascular. Danish Rojas MD Dec 14, 2017 10:32
[2017-12-14] MEDS ORDERED: ePHEDrine/NS 25 MG/5 ML SYRINGE IV ONE (12:00)
[2017-12-14] MEDS ORDERED: LIDOCAINE HCL 1% PF 5 ML SYRINGE OTHER ONE (12:00)
[2017-12-14] MEDS ORDERED: PHENYLEPH/NS 1000 MCG/10 ML SYR IV ONE (12:00)
[2017-12-14] MEDS ORDERED: DEXAMETHASONE SOD PHOS 4 MG/ML VIAL IV ONE (12:00)
[2017-12-14] MEDS ORDERED: ONDANSETRON HCL 4 MG/2 ML VIAL IV ONE (12:00)
[2017-12-14] MEDS ORDERED: ROCURONIUM INJ 50 MG/5 ML SYRINGE IV PUSH ONE (12:00)
[2017-12-14] MEDS ORDERED: PROPOFOL 200 MG/20 ML AMP IV ONE (12:00)
[2017-12-14] MEDS ORDERED: GLYCOPYRROLATE 1 MG/5 ML SYRINGE IV PUSH ONE (12:00)
[2017-12-14] MEDS ORDERED: NEOSTIGMINE 5 MG/5 ML SYRINGE IV PUSH ONE (12:00)
[2017-12-14 12:13] VITALS: BP 113/66; PULSE 58; RESP 18; TEMP 97.7; O2SAT 96
[2017-12-14] MEDS ORDERED: HEPARIN SODIUM - IV 10,000 UNITS/10 ML VIAL ONE (14:07)
[2017-12-14] MEDS ORDERED: PROTAMINE SULFATE 50 MG/5 ML VIAL ONE (14:07)
[2017-12-14] MEDS ORDERED: ceFAZolin 2 GM PREMIX 0 ML ONE (14:08)
[2017-12-14] MEDS ORDERED: BUPIVACAINE HCL PF 0.5% 30 ML VIAL ONE (14:08)
[2017-12-14] MEDS ORDERED: HEPARIN-NS/PF INJ 500 ML ONE (14:08)
[2017-12-14] MEDS ORDERED: THROMBIN (TOPICAL) 20,000 UNIT SPRAY KIT ONE (14:08)
[2017-12-14] MEDS ORDERED: fentaNYL CITRATE 1000 MCG/20 ML VIAL ONE (14:25)
[2017-12-14] MEDS ORDERED: VANCOMYCIN HCL 1000 MG VIAL ONE (14:56)
--- NOTE | 2017-12-14 16:10 | HHI.PR ---
cc: Martinez Bryant MD Immediate Post Op Note Procedure Date: Dec 14, 2017 Pre Op Diagnosis: PAD, R LE rest pain Post Op Diagnosis: PAD, R LE rest pain Surgeon: Martinez Bryant Lift Builder Whole(s): Rubén Ratliff Procedure: R PT exploration Findings: chronically occluded PT to the ankle Additional Information: no bypass target will need BKA Complications: none Specimen(s) removed: none Estimated blood loss: 15mL Anesthesia: General Drains: None Fluids: 800mL IVF Urinary Output (mLs): 150 Patient to: PACU Patient Condition: Good Date/Time of Procedure: SEE SURGICAL CARE RECORD Martinez Bryant MD Dec 14, 2017 16:10
[2017-12-14] MEDS ORDERED: DO NOT ADM ANY ANTICOAGULANT DRUGS PRN (16:21)
[2017-12-14] MEDS ORDERED: *diphenhydrAMINE HCL 50 MG/ML VIAL PERIprocedural Use ONLY ONE (16:44)
[2017-12-14 20:00] VITALS: BP 133/86; PULSE 74; RESP 20; TEMP 98.6; O2SAT 97
[2017-12-15] VITALS: BP 104/65; PULSE 63; RESP 19; TEMP 97.8; O2SAT 95
[2017-12-15] MEDS: ACETAMINOPHEN/HYDROcodone 325 MG/10 MG TAB PO PRN ×6 (01:39→21:40)
[2017-12-15] MEDS: PIPERACIL-TAZO 3.375 GM PREMIX 50 ML IV SCH ×4 (03:48→20:13)
[2017-12-15] MEDS: SODIUM CHLORIDE 0.9% FLUSH 10 ML FLUSH IV FLUSH PRN (03:48)
[2017-12-15 04:00] VITALS: BP 104/67; PULSE 73; RESP 18; TEMP 97.4; O2SAT 97
[2017-12-15] MEDS: ENOXAPARIN SODIUM 60 MG/0.6 ML SYRINGE SQ SCH ×2 (05:32→17:40)
[2017-12-15] MEDS: PANTOPRAZOLE SOD 40 MG DELAYED RELEASE TAB PO SCH (07:59)
[2017-12-15] MEDS: FERROUS SULFATE 325 MG (65 MG ELEMENTAL IRON) TAB PO SCH ×2 (07:59→20:15)
[2017-12-15] MEDS: GABAPENTIN 100 MG CAP PO SCH ×3 (07:59→17:40)
[2017-12-15 08:00] VITALS: BP 127/62; PULSE 68; RESP 17; TEMP 97.7; O2SAT 97
[2017-12-15] MEDS: SODIUM CHLORIDE 0.9% FLUSH 10 ML FLUSH IV FLUSH SCH ×2 (08:11→20:14)
[2017-12-15] MEDS ORDERED: PHARMACY ORDERED LAB ONE (08:45)
[2017-12-15 10:48] LABS: CREATININE 1.08 MG/DL (0.60-1.30)
--- NOTE | 2017-12-15 10:52 | PD.VS.PN ---
Subjective POD #: 1 Procedure(s): R PT exploration, aborted bypass Subjective/Hospital Course c/o persistent foot pain incision ok Objective Vitals/I&O Date Time Temp Pulse Resp B/P (MAP) Pulse Ox O2 Delivery O2 Flow Rate FiO2 12/15/17 08:20 Room Air 12/15/17 08:00 97.7 68 17 127/62 (83) 97 12/15/17 04:00 Room Air 12/15/17 04:00 97.4 73 18 104/67 (79) 97 12/15/17 00:00 97.8 63 19 104/65 (78) 95 12/15/17 00:00 Room Air 12/14/17 20:00 98.6 74 20 133/86 (102) 97 12/14/17 20:00 Room Air 12/14/17 18:08 Room Air 12/14/17 17:00 97.5 82 16 137/76 (96) 96 Room Air 12/14/17 16:45 78 16 139/74 (95) 95 Room Air 12/14/17 16:30 75 16 145/71 (95) 100 Nasal Cannula 2 12/14/17 16:20 97.6 70 22 151/72 (98) 100 Nasal Cannula 3 12/14/17 12:13 97.7 58 18 113/66 (82) 96 12/15/17 12/15/17 12/15/17 07:00 15:00 23:00 Intake Total 1075 ml Output Total 1750 ml Balance -675 ml Exam: R LE wound intact with benjamin poorly healing toe wound Laboratory Laboratory Tests Test 12/15/17 08:05 12/15/17 09:50 Vancomycin Level Trough 23.0 Creatinine 1.08 Estimat Glomerular Filtration Rate 72 Date/Time Source Procedure Growth Status 12/11/17 15:11 Wound Foot Gram Stain - Final Complete 12/11/17 15:11 Wound Culture - Final S. Aureus Mrsa Complete Assessment and Plan Assessment: (1) Ischemic rest pain of lower extremity (2) Osteomyelitis Status: Acute Plan Pt with severe infrageniculate R LE arterial occlusive disease, poor revascularization options given no targets identified on angiography No targets on surgical exploration discussed with the patient the need ultimately for BKA Will schedule whenever patient is ready Problem Qualifiers (1) Osteomyelitis: Qualified Codes: M86.071 - Acute hematogenous osteomyelitis, right ankle and foot Feezor,Martinez J MD Dec 15, 2017 10:51
[2017-12-15 12:00] VITALS: BP 121/65; PULSE 67; RESP 18; TEMP 98; O2SAT 100
--- NOTE | 2017-12-15 14:13 | PD.CAR.PN ---
CVT Progress Note Subjective/Hospital Course: Patient with severe PVD and non-reconstructible vascular changes. Patient has severe small vessel disease and no unreconstructable vascular changes with ischemia of the right leg. At this point all surgical and endovascular options have been exhausted and I discussed this with the patient Fully agree with Dr. Bryant. Patient needs BKA SHA. Thanks J Objective: Vital Signs Date Time Temp Pulse Resp B/P (MAP) Pulse Ox O2 Delivery O2 Flow Rate FiO2 12/15/17 12:00 98.0 67 18 121/65 (83) 100 12/15/17 08:20 Room Air 12/15/17 08:00 97.7 68 17 127/62 (83) 97 12/15/17 04:00 Room Air 12/15/17 04:00 97.4 73 18 104/67 (79) 97 12/15/17 00:00 97.8 63 19 104/65 (78) 95 12/15/17 00:00 Room Air 12/14/17 20:00 98.6 74 20 133/86 (102) 97 12/14/17 20:00 Room Air 12/14/17 18:08 Room Air 12/14/17 17:00 97.5 82 16 137/76 (96) 96 Room Air 12/14/17 16:45 78 16 139/74 (95) 95 Room Air 12/14/17 16:30 75 16 145/71 (95) 100 Nasal Cannula 2 12/14/17 16:20 97.6 70 22 151/72 (98) 100 Nasal Cannula 3 Labs: Laboratory Tests Test 12/15/17 08:05 12/15/17 09:50 Vancomycin Level Trough 23.0 MCG/ML (5.0-10.0) Creatinine 1.08 MG/DL (0.60-1.30) Estimat Glomerular Filtration Rate 72 ML/MIN (>89) Result Diagram: 12/14/17 0905 12/15/17 0950 Bassam Erwin MD Dec 15, 2017 14:13
--- NOTE | 2017-12-15 14:21 | MP ---
cc: MODESTA BRYANT MD DATE OF SURGERY 12/14/2017 PREOPERATIVE DIAGNOSIS 1. Right lower extremity ischemia. 2. Peripheral arterial occlusive disease. POSTOPERATIVE DIAGNOSIS 1. Right lower extremity ischemia. 2. Peripheral arterial occlusive disease. 3. Chronically occluded tibial vessels. PROCEDURE Right posterior tibial artery exploration. ATTENDING SURGEON Modesta Bryant. MUSEUM SPECIALIST SURGEON Rubén Ratliff. ANESTHESIA General. INDICATION Mr. Bailey is a 52-year-old gentleman with significant right lower extremity ischemia. He had an angiogram that showed he likely has a variant of Buerger's disease and it is unclear if there is a distal target to perform a bypass. Nevertheless, he is taken to the operating room for operative exploration. FINDINGS Intraoperatively it was found that indeed his tibial arteries are chronically occluded and no bypass was able to be performed. DESCRIPTION OF PROCEDURE The patient is to the operating room and placed supine on the operating table. An appropriate timeout was taken to ensure the patient's identity, operative site and planned procedure. The vancomycin was redosed as the patient . Everyone in the room agreed with the timeout and we proceeded. His legs were prepped and draped. An incision was made over the perimalleolar posterior tibial artery on the medial aspect of the distal calf. This was carried down to subcutaneous tissue with electrocautery. The artery was identified and dissected free several centimeters. An 11 blade was used to make a transverse incision on the arteriotomy but there was no patent lumen identified. There was no inflow and no outflow. The only visible arterial vessels were periarteriolar vessels that were not suitable to perform a distal bypass to. The wound was then irrigated, infiltrated with Marcaine and closed with 2-0 Polysorb and skin benjamin. The sponge and needle counts were correct at the end of the case. I was present and scrubbed for the entire procedure. Modesta Bryant MD RJF/WILIAM /6:19 AM /1:45 PM
--- NOTE | 2017-12-15 14:35 | HHI.PR ---
Subjective Remarks Patient is upset at the prospect of below the knee amputation. However he understands that this is the best course for his current condition. He wants to proceed with surgery. He states he can no longer live with pain and suffering. He does not want any infection to spread in his body. Objective Vitals Vital Signs Date Time Temp Pulse Resp B/P (MAP) Pulse Ox O2 Delivery O2 Flow Rate FiO2 12/15/17 12:00 98.0 67 18 121/65 (83) 100 12/15/17 08:20 Room Air 12/15/17 08:00 97.7 68 17 127/62 (83) 97 12/15/17 04:00 Room Air 12/15/17 04:00 97.4 73 18 104/67 (79) 97 12/15/17 00:00 97.8 63 19 104/65 (78) 95 12/15/17 00:00 Room Air 12/14/17 20:00 98.6 74 20 133/86 (102) 97 12/14/17 20:00 Room Air 12/14/17 18:08 Room Air 12/14/17 17:00 97.5 82 16 137/76 (96) 96 Room Air 12/14/17 16:45 78 16 139/74 (95) 95 Room Air 12/14/17 16:30 75 16 145/71 (95) 100 Nasal Cannula 2 12/14/17 16:20 97.6 70 22 151/72 (98) 100 Nasal Cannula 3 I/O 12/14/17 12/14/17 12/14/17 12/15/17 12/15/17 12/15/17 07:00 15:00 23:00 07:00 15:00 23:00 Intake Total 1425 ml 1112.5 ml 1075 ml Output Total 1750 ml 665 ml 1750 ml Balance -325 ml 447.5 ml -675 ml Intake Oral 1125 ml 1025 ml IV Total 300 ml 312.5 ml 50 ml Other 800 ml Output Urine Total 1750 ml 650 ml 1750 ml Estimated Blood Loss 15 ml # Voids 0 # Bowel Movements 1 0 0 Result Diagram: 12/14/17 0905 12/15/17 0950 Objective Remarks GENERAL: This is a well-nourished, well-developed patient, in no apparent distress. CARDIOVASCULAR: Normal rate and regular rhythm without murmurs, gallops, or rubs. Unable to palpate pulses on the right foot. RESPIRATORY: Good respiratory efforts. Breath sounds equal and clear to auscultation bilaterally. GASTROINTESTINAL: Abdomen soft, non-tender, non-distended. Normal active bowel sounds MUSCULOSKELETAL: Right inner leg with benjamin. Wound appear clean. NEURO: Alert & Oriented x4 to person, place, time, situation. Moves all ext x4 PSYCH: Appropriate mood and affect. 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 Podiatry and vascular surgery have evaluated patient. Right lower extremity arterial occlusive disease: - Patient is status post attempt at revascularization per vascular surgery. However no target was found. Recommendation is for BKA. Patient is agreeable to BKA. - Vascular surgery to follow-up regarding scheduling. Second opinion has been obtained with the same recommendations. Possible focal osteomyelitis. Wound culture positive for MRSA continue IV vancomycin and Zosyn and pain management with Boody and morphine. Also on gabapentin. -ID following. Plan for BKA as above. Chronic anemia. Stable Duodenal and Rectal ulcer. Stable continue Iron supplementation as well as Protonix. DVT prophylaxis with Lovenox. Vladislav Lundberg MD Dec 15, 2017 14:35
[2017-12-15] MEDS: VANCOMYCIN 1 GM/200 ML PREMIX IV SCH (15:45)
[2017-12-15 16:00] VITALS: BP 131/60; PULSE 72; RESP 18; TEMP 98.3; O2SAT 97
--- NOTE | 2017-12-15 16:19 | HHI.IDPN ---
Note Infectious Disease Note Patient complain of severe pain in the r. foot. Afebrile. Wound culture has MRSA. 52-year-old white male who was recently admitted to the hospital in November and he underwent amputation of the right fourth toe for gangrene. The surgery was performed on 11/28/2017. The patient is now readmitted because he has necrotic changes at the surgical site. PAST MEDICAL HISTORY: 1. History of osteomyelitis of the right foot. 2. Right fourth toe amputation. 3. No history of diabetes mellitus. ALLERGIES: NO KNOWN DRUG ALLERGIES. MEDICATIONS: Vancomycin. Piperacillin / tazobactam. OBJ: Vital Signs Date Time Temp Pulse Resp B/P (MAP) Pulse Ox O2 Delivery O2 Flow Rate FiO2 12/15/17 14:45 Room Air 12/15/17 12:00 98.0 67 18 121/65 (83) 100 12/15/17 08:20 Room Air 12/15/17 08:00 97.7 68 17 127/62 (83) 97 12/15/17 04:00 Room Air 12/15/17 04:00 97.4 73 18 104/67 (79) 97 12/15/17 00:00 97.8 63 19 104/65 (78) 95 12/15/17 00:00 Room Air 12/14/17 20:00 98.6 74 20 133/86 (102) 97 12/14/17 20:00 Room Air 12/14/17 18:08 Room Air 12/14/17 17:00 97.5 82 16 137/76 (96) 96 Room Air 12/14/17 16:45 78 16 139/74 (95) 95 Room Air 12/14/17 16:30 75 16 145/71 (95) 100 Nasal Cannula 2 12/14/17 16:20 97.6 70 22 151/72 (98) 100 Nasal Cannula 3 Laboratory Tests Test 12/14/17 09:05 White Blood Count 5.5 TH/MM3 Red Blood Count 4.46 MIL/MM3 Hemoglobin 9.6 GM/DL Hematocrit 31.0 % Mean Corpuscular Volume 69.6 FL Mean Corpuscular Hemoglobin 21.6 PG Mean Corpuscular Hemoglobin Concent 31.1 % Red Cell Distribution Width 20.0 % Platelet Count 421 TH/MM3 Mean Platelet Volume 9.4 FL Neutrophils (%) (Auto) 54.4 % Lymphocytes (%) (Auto) 23.7 % Monocytes (%) (Auto) 12.3 % Eosinophils (%) (Auto) 9.2 % Basophils (%) (Auto) 0.4 % Neutrophils # (Auto) 3.0 TH/MM3 Lymphocytes # (Auto) 1.3 TH/MM3 Monocytes # (Auto) 0.7 TH/MM3 Eosinophils # (Auto) 0.5 TH/MM3 Basophils # (Auto) 0.0 TH/MM3 CBC Comment DIFF FINAL Differential Comment Laboratory Tests Test 12/14/17 09:05 12/15/17 09:50 Blood Urea Nitrogen 14 MG/DL Creatinine 0.94 MG/DL 1.08 MG/DL Random Glucose 82 MG/DL Calcium Level 9.7 MG/DL Magnesium Level 2.2 MG/DL Sodium Level 137 MEQ/L Potassium Level 3.9 MEQ/L Chloride Level 101 MEQ/L Carbon Dioxide Level 28.5 MEQ/L Anion Gap 8 MEQ/L Estimat Glomerular Filtration Rate 85 ML/MIN 72 ML/MIN IMAGING: Foot X-Ray 12/08/17 0000 Signed Impressions: Service Date/Time: Friday, December 08, 2017 16:20 - CONCLUSION: New lucency involving the head of the right fourth metatarsal and possibly the head of the right third metatarsal. If there is strong clinical concern for osteomyelitis, MRI of the foot with contrast would be more sensitive in this patient. Martinez Avery MD Foot MRI 12/08/17 0000 Signed Impressions: Service Date/Time: Friday, December 08, 2017 19:51 - CONCLUSION: There is a focal bone marrow edema along with some enhancement involving the distal fourth metatarsal with adjacent soft tissue swelling. These findings are suspicious for focal osteomyelitis of the distal metatarsal. Petr Malave MD PHYSICAL EXAMINATION: GENERAL: No acute distress. He is awake and alert and oriented. HEAD, EYES, EARS, NOSE, THROAT: Head atraumatic. Extraocular movements grossly intact, pupils reactive to light. No icterus. Oropharynx moist mucosa. No lesions. NECK: The neck is supple without adenopathy or swelling. LUNGS: Clear breath sounds bilateral. HEART: Regular S1 and S2. No murmurs, rubs or gallops. ABDOMEN: Bowel sounds present, soft, nontender. EXTREMITIES: The right foot has sutures in place in the interspace between toes three and five in the location where the fourth toe was resected. There is necrotic tissue along the sutures involving the inner aspect of the fifth toe and third toe and the wound bed from the fourth toe incision. There are purulent droplets on palpation of the foot and there is a wet appearance of the area within the crater where the incision is located. Also pale discoloration of the tissue beyond the incision at the plantar aspect of the foot and this extends out circumferentially about 1 cm from the sutures. The foot is warm and has no visible erythema. The other extremities have no clubbing, cyanosis or edema. SKIN: No rash. NEUROLOGIC: Nonfocal. PSYCHIATRIC: The patient is calm and cooperative. IMPRESSION: Osteomyelitis/ischemia involving the fourth metatarsal. MRSA. Severe peripheral vascular disease. Status post recent resection of the fourth toe for ischemic gangrene. RECOMMENDATIONS: 1. Stop piperacillin / tazobactam. 2. Continue Vancomycin. 3. Surgical intervention to be determined. Unlikely to heal with antibiotics. Risk of spread of infection. Piotr Woo MD Dec 15, 2017 16:19
[2017-12-15 20:00] VITALS: BP 142/83; PULSE 76; RESP 19; TEMP 98.6; O2SAT 95
[2017-12-15] MEDS: MORPHINE SULFATE 4 MG/ML INJ IV PUSH PRN (20:14)
[2017-12-16] VITALS: BP 114/68; PULSE 75; RESP 21; TEMP 97.9; O2SAT 98
[2017-12-16] MEDS: MORPHINE SULFATE 4 MG/ML INJ IV PUSH PRN ×6 (00:36→21:23)
[2017-12-16] MEDS: ACETAMINOPHEN/HYDROcodone 325 MG/10 MG TAB PO PRN ×6 (02:13→23:03)
[2017-12-16] MEDS: PIPERACIL-TAZO 3.375 GM PREMIX 50 ML IV SCH ×2 (02:13→08:42)
[2017-12-16] MEDS: VANCOMYCIN 1 GM/200 ML PREMIX IV SCH ×2 (03:27→15:07)
[2017-12-16 04:00] VITALS: BP 110/78; PULSE 65; RESP 21; TEMP 97.7; O2SAT 99
[2017-12-16] MEDS: SODIUM CHLORIDE 0.9% FLUSH 10 ML FLUSH IV FLUSH SCH ×2 (07:25→21:24)
[2017-12-16 08:00] VITALS: BP 105/56; PULSE 61; RESP 18; TEMP 97.6; O2SAT 99
[2017-12-16] MEDS: FERROUS SULFATE 325 MG (65 MG ELEMENTAL IRON) TAB PO SCH ×2 (08:42→21:07)
[2017-12-16] MEDS: GABAPENTIN 100 MG CAP PO SCH ×3 (08:42→17:11)
[2017-12-16] MEDS: PANTOPRAZOLE SOD 40 MG DELAYED RELEASE TAB PO SCH (08:42)
--- NOTE | 2017-12-16 11:15 | PD.VS.PN ---
Subjective POD #: 2 Procedure(s): R PT exploration, aborted bypass Subjective/Hospital Course Afebrile 52/M s/p R PT exploration, aborted bypass Pt continues to c/o persistent RIGHT foot pain Pt w/ increased necrosis right foot(medial plantar aspect) Objective Vitals/I&O Date Time Temp Pulse Resp B/P (MAP) Pulse Ox O2 Delivery O2 Flow Rate FiO2 12/16/17 08:00 97.6 61 18 105/56 (72) 99 12/16/17 04:00 97.7 65 21 110/78 (89) 99 12/16/17 00:00 97.9 75 21 114/68 (83) 98 12/15/17 20:10 Room Air 12/15/17 20:00 98.6 76 19 142/83 (102) 95 12/15/17 17:55 Room Air 12/15/17 16:00 98.3 72 18 131/60 (83) 97 12/15/17 14:45 Room Air 12/15/17 12:00 98.0 67 18 121/65 (83) 100 12/16/17 12/16/17 12/16/17 07:00 15:00 23:00 Intake Total 500 ml Output Total 700 ml Balance -200 ml Exam: GENERAL: Afebrile 52/M, A&Ox3, GCS 15, NAD SKIN: LE Warm and dry R 4th toe amputation site with increased necrosis w/o odor L medal aspect of ankle incision I/C/D with staple closure CARDIOVASCULAR: RRR w/o M/G/R RESPIRATORY: Breath sounds equal bilaterally. No accessory muscle use. MUSCULOSKELETAL: No cyanosis, or edema. R foot less painful w/ palpation NON palpable R DP/PT Laboratory Date/Time Source Procedure Growth Status 12/11/17 15:11 Wound Foot Gram Stain - Final Complete 12/11/17 15:11 Wound Culture - Final S. Aureus Mrsa Complete Assessment and Plan Assessment: (1) Ischemic rest pain of lower extremity (2) Osteomyelitis Status: Acute Plan Pt with severe infrageniculate R LE arterial occlusive disease, poor revascularization options given no targets identified on angiography Pt was found to have No targets on surgical exploration A discussion with the patient (ultimately for BKA) was discussed yesterday Pt reassessed this am Pt continues with R LE pain Pt agreed to a R BKA Plan Discussed and reviewed R BKA amputation w/ pt Questions were answered and pt agrees w/ plan Pt scheduled tomorrow (12/17/17) am w/ Dr. Bryant for a R BKA Consent signed and placed in the chart NPO after midnight Continue pain management Continue PT/WBAT Susie Stahl WARPER FIXER [facility] [phone] Problem Qualifiers (1) Osteomyelitis: Qualified Codes: M86.071 - Acute hematogenous osteomyelitis, right ankle and foot Susie Stahl Dec 16, 2017 11:15
[2017-12-16 12:00] VITALS: BP 138/69; PULSE 69; RESP 20; TEMP 96.2; O2SAT 97
--- NOTE | 2017-12-16 13:55 | HHI.PR ---
Subjective Remarks Patient reports he is doing okay. Plan for right BKA tomorrow. Objective Vitals Vital Signs Date Time Temp Pulse Resp B/P (MAP) Pulse Ox O2 Delivery O2 Flow Rate FiO2 12/16/17 12:00 96.2 69 20 138/69 (92) 97 12/16/17 08:00 97.6 61 18 105/56 (72) 99 12/16/17 04:00 97.7 65 21 110/78 (89) 99 12/16/17 00:00 97.9 75 21 114/68 (83) 98 12/15/17 20:10 Room Air 12/15/17 20:00 98.6 76 19 142/83 (102) 95 12/15/17 17:55 Room Air 12/15/17 16:00 98.3 72 18 131/60 (83) 97 12/15/17 14:45 Room Air I/O 12/15/17 12/15/17 12/15/17 12/16/17 12/16/17 12/16/17 07:00 15:00 23:00 07:00 15:00 23:00 Intake Total 1075 ml 650 ml 500 ml Output Total 1750 ml 400 ml 700 ml Balance -675 ml 250 ml -200 ml Intake Oral 1025 ml 600 ml 200 ml IV Total 50 ml 50 ml 300 ml Output Urine Total 1750 ml 400 ml 700 ml # Bowel Movements 0 1 Result Diagram: 12/14/17 0905 12/15/17 0950 Objective Remarks GENERAL: This is a well-nourished, well-developed patient, in no apparent distress. CARDIOVASCULAR: Normal rate and regular rhythm without murmurs, gallops, or rubs. Unable to palpate pulses on the right foot. RESPIRATORY: Good respiratory efforts. Breath sounds equal and clear to auscultation bilaterally. GASTROINTESTINAL: Abdomen soft, non-tender, non-distended. Normal active bowel sounds MUSCULOSKELETAL: Right inner leg with benjamin. Wound appear clean. NEURO: Alert & Oriented x4 to person, place, time, situation. Moves all ext x4 PSYCH: Appropriate mood and affect. 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 Podiatry and vascular surgery have evaluated patient. Right lower extremity arterial occlusive disease: - Patient is status post attempt at revascularization per vascular surgery. However no target was found. Recommendation is for BKA. Patient is agreeable to BKA. BKA planning for tomorrow morning per vascular surgery. Possible focal osteomyelitis. Wound culture positive for MRSA continue IV vancomycin. Zosyn discontinued per ID. Pain management with [place] and morphine. Also on gabapentin. -ID following. Plan for BKA as above.. Chronic anemia. Stable Duodenal and Rectal ulcer. Stable continue Iron supplementation as well as Protonix. DVT prophylaxis with Lovenox. Vladislav Lundberg MD Dec 16, 2017 13:55
[2017-12-16 16:00] VITALS: BP 119/61; PULSE 67; RESP 20; TEMP 97.1; O2SAT 92
[2017-12-16 20:00] VITALS: BP 122/64; PULSE 62; RESP 18; TEMP 97.8; O2SAT 97
[2017-12-17] VITALS: BP 109/54; PULSE 63; RESP 20; TEMP 98; O2SAT 94
[2017-12-17] MEDS: MORPHINE SULFATE 4 MG/ML INJ IV PUSH PRN ×4 (01:32→21:40)
[2017-12-17] MEDS ORDERED: PHARMACY ORDERED LAB ONE (03:45)
[2017-12-17 04:00] VITALS: BP 106/52; PULSE 60; RESP 18; TEMP 98.2; O2SAT 95
[2017-12-17] MEDS: ACETAMINOPHEN/HYDROcodone 325 MG/10 MG TAB PO PRN ×2 (04:09→08:59)
[2017-12-17] MEDS: VANCOMYCIN 1 GM/200 ML PREMIX IV SCH (04:17)
[2017-12-17] MEDS: SODIUM CHLORIDE 0.9% FLUSH 10 ML FLUSH IV FLUSH PRN (05:41)
[2017-12-17 07:28] LABS: CREATININE 0.99 MG/DL (0.60-1.30)
[2017-12-17 08:00] VITALS: BP 129/67; PULSE 67; RESP 18; TEMP 97.7; O2SAT 94
[2017-12-17] MEDS ORDERED: SODIUM CHLORID 0.9% 500 ML IV PRN (08:15)
[2017-12-17] MEDS ORDERED: METOPROLOL TARTRATE 25 MG TAB PO PRN (08:15)
[2017-12-17] MEDS ORDERED: LACTATED RINGER'S 1000 ML IV PRN (08:15)
[2017-12-17] MEDS ORDERED: POVIDONE IODINE 5% (ANTISEPSIS KIT) 4 APPLICATIONS EACH NARE PRN (08:15)
[2017-12-17] MEDS ORDERED: CHLORHEXIDINE GLUCONATE 2 % 1 PACK (2 CLOTHS) TOPICAL PRN (08:15)
[2017-12-17] MEDS: GABAPENTIN 100 MG CAP PO SCH ×3 (08:58→18:23)
[2017-12-17] MEDS: PANTOPRAZOLE SOD 40 MG DELAYED RELEASE TAB PO SCH (08:58)
[2017-12-17] MEDS: FERROUS SULFATE 325 MG (65 MG ELEMENTAL IRON) TAB PO SCH ×2 (08:58→21:40)
[2017-12-17] MEDS: SODIUM CHLORIDE 0.9% FLUSH 10 ML FLUSH IV FLUSH SCH ×2 (08:58→21:40)
--- NOTE | 2017-12-17 10:03 | HHI.PR ---
Subjective Remarks Patient reports persistent right lower extremity pain. To OR today for right BKA. Objective Vitals Vital Signs Date Time Temp Pulse Resp B/P (MAP) Pulse Ox O2 Delivery O2 Flow Rate FiO2 12/17/17 08:00 97.7 67 18 129/67 (87) 94 12/17/17 04:00 98.2 60 18 106/52 (70) 95 12/17/17 00:00 98.0 63 20 109/54 (72) 94 12/16/17 20:00 Room Air 12/16/17 20:00 97.8 62 18 122/64 (83) 97 12/16/17 16:00 97.1 67 20 119/61 (80) 92 12/16/17 12:00 96.2 69 20 138/69 (92) 97 I/O 12/16/17 12/16/17 12/16/17 12/17/17 12/17/17 12/17/17 07:00 15:00 23:00 07:00 15:00 23:00 Intake Total 500 ml 720 ml Output Total 700 ml Balance -200 ml 720 ml Intake Oral 200 ml 720 ml IV Total 300 ml Output Urine Total 700 ml # Voids 2 # Bowel Movements 1 0 Result Diagram: 12/14/17 0905 12/17/17 0650 Objective Remarks GENERAL: This is a well-nourished, well-developed patient, in no apparent distress. CARDIOVASCULAR: Normal rate and regular rhythm without murmurs, gallops, or rubs. Unable to palpate pulses on the right foot. RESPIRATORY: Good respiratory efforts. Breath sounds equal and clear to auscultation bilaterally. GASTROINTESTINAL: Abdomen soft, non-tender, non-distended. Normal active bowel sounds MUSCULOSKELETAL: Right inner leg with benjamin. Multiple dry wounds on the right foot. NEURO: Alert & Oriented x4 to person, place, time, situation. Moves all ext x4 PSYCH: Appropriate mood and affect. 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 Podiatry and vascular surgery have evaluated patient. Right lower extremity arterial occlusive disease: - Patient is status post attempt at revascularization per vascular surgery. However no target was found. Recommendation is for BKA. BKA plan for today per vascular surgery. Possible focal osteomyelitis. Wound culture positive for MRSA continue IV vancomycin. Zosyn discontinued per ID. Pain management with [place] and morphine. Also on gabapentin. -ID following. Plan for BKA as above.. Chronic anemia. Stable Duodenal and Rectal ulcer. Stable continue Iron supplementation as well as Protonix. DVT prophylaxis with Lovenox. Vladislav Lundberg MD Dec 17, 2017 10:03
[2017-12-17] MEDS ORDERED: LIDOCAINE HCL 1% PF 5 ML SYRINGE OTHER ONE (12:00)
[2017-12-17] MEDS ORDERED: PROPOFOL 200 MG/20 ML AMP IV ONE (12:00)
[2017-12-17] MEDS ORDERED: ePHEDrine/NS 25 MG/5 ML SYRINGE IV ONE (12:00)
[2017-12-17] MEDS ORDERED: PHENYLEPH/NS 1000 MCG/10 ML SYR IV ONE (12:00)
[2017-12-17] MEDS ORDERED: SODIUM CHLOR 0.9% 250 ML INJ 250 ML IV ONE (12:00)
[2017-12-17] MEDS ORDERED: VANCOMYCIN HCL 1000 MG VIAL ONE (13:14)
--- NOTE | 2017-12-17 14:17 | HHI.PR ---
cc: Martinez Bryant MD Immediate Post Op Note Procedure Date: Dec 17, 2017 Pre Op Diagnosis: Non-reconstructible PAD Post Op Diagnosis: Non-reconstructible PAD Surgeon: Martinez Bryant Mixing Plant Operator(s): Kerline Haji Procedure: R BKA Findings: perfused tissue and no undrained infection Complications: none Specimen(s) removed: RIGHT leg Estimated blood loss: 200mL Anesthesia: General Drains: None Fluids: 600mL IVF Patient to: PACU Patient Condition: Good Date/Time of Procedure: SEE SURGICAL CARE RECORD Martinez Bryant MD Dec 17, 2017 14:17
[2017-12-17] MEDS ORDERED: ACETAMINOPHEN 1000 MG/100 ML 100 ML IV ONE (14:37)
[2017-12-17] MEDS ORDERED: HYDROmorphone HCL PF 2 MG/ML VIAL ONE (14:38)
[2017-12-17] MEDS ORDERED: *morphine SULFATE 4 MG/ML PERIprocedure ONLY ONE ×2 (14:51→14:59)
[2017-12-17 16:00] VITALS: BP 169/88; PULSE 89; RESP 20; TEMP 98.4; O2SAT 98
[2017-12-17] MEDS: VANCOMYCIN INJ 1,250 MG in SODIUM CHLOR 0.9% 250 ML INJ 250 ML IV SCH (16:07)
[2017-12-17] MEDS: HYDROmorphone HCL 2 MG TAB PO PRN ×2 (17:06→23:42)
[2017-12-17] MEDS ORDERED: LORazepam 1 MG TAB PO PRN (18:45)
[2017-12-17] MEDS ORDERED: MORPHINE SULFATE 8 MG/ML INJ IV PUSH ONE (18:45)
[2017-12-17] MEDS ORDERED: DO NOT ADM ANY ANTICOAGULANT DRUGS PRN (19:45)
[2017-12-17 21:22] VITALS: BP 157/84; PULSE 80; RESP 18; TEMP 97.7; O2SAT 97
[2017-12-18] VITALS: BP 140/75; PULSE 77; RESP 18; TEMP 98.5; O2SAT 97
[2017-12-18] MEDS: MORPHINE SULFATE 4 MG/ML INJ IV PUSH PRN ×4 (01:51→18:53)
[2017-12-18 03:58] VITALS: BP 130/69; PULSE 88; RESP 18; TEMP 98.1; O2SAT 95
[2017-12-18] MEDS: VANCOMYCIN INJ 1,250 MG in SODIUM CHLOR 0.9% 250 ML INJ 250 ML IV SCH (04:02)
[2017-12-18] MEDS: HYDROmorphone HCL 2 MG TAB PO PRN ×4 (04:02→20:56)
[2017-12-18 08:00] VITALS: BP 145/73; PULSE 92; RESP 20; TEMP 98.9; O2SAT 95
[2017-12-18] MEDS: FERROUS SULFATE 325 MG (65 MG ELEMENTAL IRON) TAB PO SCH ×2 (08:22→20:57)
[2017-12-18] MEDS: SODIUM CHLORIDE 0.9% FLUSH 10 ML FLUSH IV FLUSH SCH ×2 (08:23→20:57)
[2017-12-18] MEDS: GABAPENTIN 100 MG CAP PO SCH ×3 (08:23→17:14)
[2017-12-18] MEDS: PANTOPRAZOLE SOD 40 MG DELAYED RELEASE TAB PO SCH (08:23)
[2017-12-18 11:00] LABS: HEMATOCRIT 29.1 % (39.0-51.0); HEMOGLOBIN 9.1 GM/DL (13.0-17.0); MEAN CELL VOLUME 68.9 FL (80.0-100.0); MEAN CORPUSCULAR HEMOGLOBIN 21.6 PG (27.0-34.0); MEAN CORPUSCULAR HGB CONC 31.4 % (32.0-36.0); MEAN PLATELET VOLUME 10.3 FL (7.0-11.0); PLATELET COUNT 323 TH/MM3 (150-450); RED BLOOD COUNT 4.22 MIL/MM3 (4.50-5.90); RED CELL DISTRIBUTION WIDTH 20.4 % (11.6-17.2)
[2017-12-18 11:18] LABS: BICARBONATE 29.1 MEQ/L (21.0-32.0); CALCIUM 9.8 MG/DL (8.5-10.1); CREATININE 0.97 MG/DL (0.60-1.30)
--- NOTE | 2017-12-18 11:19 | HHI.PR ---
Subjective Remarks Patient reports that pain better controlled. No fevers or chills. Objective Vitals Vital Signs Date Time Temp Pulse Resp B/P (MAP) Pulse Ox O2 Delivery O2 Flow Rate FiO2 12/18/17 08:00 98.9 92 20 145/73 (97) 95 12/18/17 08:00 Room Air 4.00 12/18/17 03:58 98.1 88 18 130/69 (89) 95 12/18/17 00:00 98.5 77 18 140/75 (96) 97 12/17/17 21:46 Room Air 12/17/17 21:22 97.7 80 18 157/84 (108) 97 12/17/17 19:00 Nasal Cannula 4.00 12/17/17 16:00 98.4 89 20 169/88 (115) 98 12/17/17 15:15 97.6 95 24 157/82 (107) 100 Nasal Cannula 4 12/17/17 15:00 96 24 161/82 (108) 100 Nasal Cannula 4 12/17/17 14:45 107 24 155/78 (103) 100 Nasal Cannula 4 12/17/17 14:37 97.0 111 24 177/98 (124) 100 Nasal Cannula 4 I/O 12/17/17 12/17/17 12/17/17 12/18/17 12/18/17 12/18/17 07:00 15:00 23:00 07:00 15:00 23:00 Intake Total 600 ml 262.5 ml 502.5 ml Output Total 400 ml 1450 ml Balance 200 ml 262.5 ml -947.5 ml Intake Oral 0 ml 240 ml IV Total 262.5 ml 262.5 ml Other 600 ml Output Urine Total 1450 ml Estimated Blood Loss 400 ml # Voids 0 # Bowel Movements 0 Result Diagram: 12/18/17 0825 12/18/17 0925 Objective Remarks GENERAL: This is a well-nourished, well-developed patient, in no apparent distress. CARDIOVASCULAR: Normal rate and regular rhythm without murmurs, gallops, or rubs. RESPIRATORY: Good respiratory efforts. Breath sounds equal and clear to auscultation bilaterally. GASTROINTESTINAL: Abdomen soft, non-tender, non-distended. Normal active bowel sounds MUSCULOSKELETAL: Status post right BKA. Dressing appear intact. NEURO: Alert & Oriented x4 to person, place, time, situation. Moves all ext x4 PSYCH: Appropriate mood and affect. 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 Podiatry and vascular surgery have evaluated patient. Right lower extremity arterial occlusive disease: Status post BKA. - Patient is status post attempt at revascularization per vascular surgery. However no target was found. Status post right BKA by vascular surgery on . -Advised patient to try to eliminate IV pain medication use in anticipation for going home. Possible focal osteomyelitis. Wound culture positive for MRSA continue IV vancomycin. Patient was followed by ID. Antibiotics discontinued since focus of infection has been removed. Chronic anemia. Stable Duodenal and Rectal ulcer. Stable continue Iron supplementation as well as Protonix. DVT prophylaxis with Lovenox. Discharge Planning Pending clearance by vascular surgery and better pain control with oral medications only. Vladislav Lundberg MD Dec 18, 2017 11:19
[2017-12-18 12:00] VITALS: BP 142/82; PULSE 92; RESP 18; TEMP 99.3; O2SAT 96
--- NOTE | 2017-12-18 12:28 | HHI.IDPN ---
Note Infectious Disease Note Patient complain of pain. Post r BKA. Afebrile. No other complaints. 52-year-old white male who was recently admitted to the hospital in November and he underwent amputation of the right fourth toe for gangrene. The surgery was performed on 11/28/2017. The patient is now readmitted because he has necrotic changes at the surgical site. PAST MEDICAL HISTORY: 1. History of osteomyelitis of the right foot. 2. Right fourth toe amputation. 3. No history of diabetes mellitus. ALLERGIES: NO KNOWN DRUG ALLERGIES. MEDICATIONS: Vancomycin. OBJ: Vital Signs Date Time Temp Pulse Resp B/P (MAP) Pulse Ox O2 Delivery O2 Flow Rate FiO2 12/18/17 08:00 98.9 92 20 145/73 (97) 95 12/18/17 08:00 Room Air 4.00 12/18/17 03:58 98.1 88 18 130/69 (89) 95 12/18/17 00:00 98.5 77 18 140/75 (96) 97 12/17/17 21:46 Room Air 12/17/17 21:22 97.7 80 18 157/84 (108) 97 12/17/17 19:00 Nasal Cannula 4.00 12/17/17 16:00 98.4 89 20 169/88 (115) 98 12/17/17 15:15 97.6 95 24 157/82 (107) 100 Nasal Cannula 4 12/17/17 15:00 96 24 161/82 (108) 100 Nasal Cannula 4 12/17/17 14:45 107 24 155/78 (103) 100 Nasal Cannula 4 12/17/17 14:37 97.0 111 24 177/98 (124) 100 Nasal Cannula 4 Laboratory Tests Test 12/18/17 08:25 White Blood Count 9.0 TH/MM3 Red Blood Count 4.22 MIL/MM3 Hemoglobin 9.1 GM/DL Hematocrit 29.1 % Mean Corpuscular Volume 68.9 FL Mean Corpuscular Hemoglobin 21.6 PG Mean Corpuscular Hemoglobin Concent 31.4 % Red Cell Distribution Width 20.4 % Platelet Count 323 TH/MM3 Mean Platelet Volume 10.3 FL Laboratory Tests Test 12/17/17 06:50 12/18/17 09:25 Creatinine 0.99 MG/DL 0.97 MG/DL Estimat Glomerular Filtration Rate 80 ML/MIN 82 ML/MIN Blood Urea Nitrogen 13 MG/DL Random Glucose 95 MG/DL Calcium Level 9.8 MG/DL Sodium Level 137 MEQ/L Potassium Level 3.7 MEQ/L Chloride Level 99 MEQ/L Carbon Dioxide Level 29.1 MEQ/L Anion Gap 9 MEQ/L IMAGING: Foot X-Ray 12/08/17 0000 Signed Impressions: Service Date/Time: Friday, December 08, 2017 16:20 - CONCLUSION: New lucency involving the head of the right fourth metatarsal and possibly the head of the right third metatarsal. If there is strong clinical concern for osteomyelitis, MRI of the foot with contrast would be more sensitive in this patient. Martinez Avery MD Foot MRI 12/08/17 0000 Signed Impressions: Service Date/Time: Friday, December 08, 2017 19:51 - CONCLUSION: There is a focal bone marrow edema along with some enhancement involving the distal fourth metatarsal with adjacent soft tissue swelling. These findings are suspicious for focal osteomyelitis of the distal metatarsal. Petr Malave MD PHYSICAL EXAMINATION: GENERAL: No acute distress. Awake and alert and oriented. HEAD, EYES, EARS, NOSE, THROAT: Head atraumatic. Extraocular movements grossly intact, pupils reactive to light. No icterus. Oropharynx moist mucosa. No lesions. NECK: The neck is supple without adenopathy or swelling. LUNGS: Clear breath sounds bilateral. HEART: Regular S1 and S2. No murmurs, rubs or gallops. ABDOMEN: Bowel sounds present, soft, nontender. EXTREMITIES: The right leg is post BKA. SKIN: No rash. NEUROLOGIC: Nonfocal. PSYCHIATRIC: Calm and cooperative. IMPRESSION: Osteomyelitis/ischemia involving the fourth metatarsal. MRSA. - Post r. BKA. Severe peripheral vascular disease. Status post recent resection of the fourth toe for ischemic gangrene. RECOMMENDATIONS: Stop antibiotics now that patient is post BKA. I will sign off. No need for ID follow up Piotr Woo MD Dec 18, 2017 12:28
--- NOTE | 2017-12-18 12:50 | MP ---
cc: MODESTA BRYANT MD DATE OF SURGERY: 12/18/2017. PREOPERATIVE DIAGNOSIS: Un-reconstructable right lower extremity peripheral arterial occlusive disease. POSTOPERATIVE DIAGNOSIS: Un-reconstructable right lower extremity peripheral arterial occlusive disease. OPERATIVE PROCEDURE PERFORMED: Right below-knee amputation. SURGEON: Modesta Bryant MD. ANESTHESIA: General. INDICATIONS FOR THE PROCEDURE: Mr. Bailey is a 52-year-old gentleman with significant peripheral vascular occlusive disease and a previously attempted bypass failed because he had no suitable target. He is taken to the operating room for a below-knee amputation. Two attending surgeons signed off on the clinical plan to perform an amputation as per hospital policy. DESCRIPTION OF THE PROCEDURE IN DETAIL: Informed consent was obtained from the patient. He was taken to the operating room and placed supine on the operating room table. An appropriate time out was taken to ensure the patient's identity, the operative site and the planned procedure. The administration of a gram of Vancomycin was initiated prior to the skin incision to be discontinued after a single preoperative dose. Vancomycin was chosen because of the patient's preoperative length of stay exceeding 48 hours. Everyone in the room agreed with the time out and we proceeded. His right leg was prepped and draped. An incision was made a handsbreadth below the tibial tuberosity and carried down through the subcutaneous tissue with electrocautery. The skin was then divided creating a long posterior flap with the muscle and the tibia was divided with an oscillating saw. The fibula was divided with an oscillating saw and the posterior muscle was divided thereby amputating the leg and we passed it off as a specimen. The fibula was resected more proximal than the tibia and the anterior portion of the tibia was bevelled with an oscillating saw. The wound was irrigated and made hemostatic using a combination of electrocautery and 3-0 silk suture. The fascia was reapproximated with interrupted 2-0 Polysorb and the skin was closed with benjamin. Sponge, needle and instrument counts were correct at the end of the case. I was present and scrubbed for the entire procedure. MD DANAE Mei/FRANCISCA /5:12 PM /12:32 PM
[2017-12-18 16:00] VITALS: BP 128/74; PULSE 101; RESP 17; TEMP 99.5; O2SAT 97
[2017-12-18 21:37] VITALS: BP 133/75; PULSE 88; RESP 20; TEMP 99.8; O2SAT 96
[2017-12-19] VITALS (7 sets, daily range): BP systolic 132–145; BP diastolic 61–82; PULSE 75–86; RESP 16–20; TEMP 97.3–99.3; O2SAT 95–98
[2017-12-19] MEDS: HYDROmorphone HCL 2 MG TAB PO PRN ×5 (01:11→21:54)
[2017-12-19] MEDS: MORPHINE SULFATE 4 MG/ML INJ IV PUSH PRN ×4 (03:52→20:06)
[2017-12-19] MEDS: PANTOPRAZOLE SOD 40 MG DELAYED RELEASE TAB PO SCH (09:05)
[2017-12-19] MEDS: SODIUM CHLORIDE 0.9% FLUSH 10 ML FLUSH IV FLUSH SCH ×2 (09:05→20:06)
[2017-12-19] MEDS: GABAPENTIN 100 MG CAP PO SCH ×3 (09:05→17:54)
[2017-12-19] MEDS: FERROUS SULFATE 325 MG (65 MG ELEMENTAL IRON) TAB PO SCH ×2 (09:05→20:07)
--- NOTE | 2017-12-19 12:27 | PD.VS.PN ---
Subjective POD #: 2 Procedure(s): R BKA Subjective/Hospital Course pain in stump and some phantom pain worked with PT already Objective Vitals/I&O Date Time Temp Pulse Resp B/P (MAP) Pulse Ox O2 Delivery O2 Flow Rate FiO2 12/19/17 08:00 Room Air 12/19/17 08:00 86 12/19/17 08:00 97.5 81 16 138/82 (100) 95 12/19/17 04:00 98.8 83 19 140/79 (99) 96 12/19/17 03:49 86 12/19/17 00:31 99.3 84 20 132/73 (92) 98 12/18/17 21:37 99.8 88 20 133/75 (94) 96 12/18/17 21:01 Room Air 12/18/17 16:00 99.5 101 17 128/74 (92) 97 12/19/17 12/19/17 12/19/17 07:00 15:00 23:00 Intake Total 480 ml Output Total 1600 ml Balance -1120 ml Exam: R BK stump unwrapped edematous but skin healthy almost able to completely extend lower leg / knee Laboratory Date/Time Source Procedure Growth Status 12/11/17 15:11 Wound Foot Gram Stain - Final Complete 12/11/17 15:11 Wound Culture - Final S. Aureus Mrsa Complete Assessment and Plan Assessment: (1) Ischemic rest pain of lower extremity (2) Osteomyelitis Status: Acute Plan POD#2 s/p R BKA Needs aggressive PT and I discussed need to straighten leg to improve chance of wearing prosthesis LUIS ENRIQUE wrap replaced gently - venous engorgement of BKA stump pain control Problem Qualifiers (1) Osteomyelitis: Qualified Codes: M86.071 - Acute hematogenous osteomyelitis, right ankle and foot Martinez Bryant MD Dec 19, 2017 12:27
--- NOTE | 2017-12-19 21:24 | HHI.PR ---
Subjective Remarks Late entry. Patient seen earlier this morning around 10. He just work with physical therapy. He reports pain at the stump and a feeling of blood rushing down the stump when he got up.. Objective Vitals Vital Signs Date Time Temp Pulse Resp B/P (MAP) Pulse Ox O2 Delivery O2 Flow Rate FiO2 12/19/17 16:00 97.3 75 18 137/76 (96) 96 12/19/17 16:00 80 12/19/17 12:00 78 12/19/17 12:00 98.0 86 18 145/71 (95) 95 12/19/17 08:00 Room Air 12/19/17 08:00 86 12/19/17 08:00 97.5 81 16 138/82 (100) 95 12/19/17 04:00 98.8 83 19 140/79 (99) 96 12/19/17 03:49 86 12/19/17 00:31 99.3 84 20 132/73 (92) 98 12/18/17 21:37 99.8 88 20 133/75 (94) 96 I/O 12/18/17 12/18/17 12/18/17 12/19/17 12/19/17 12/19/17 07:00 15:00 23:00 07:00 15:00 23:00 Intake Total 502.5 ml 1440 ml 480 ml Output Total 1450 ml 1600 ml 300 ml 550 ml Balance -947.5 ml 1440 ml -1120 ml -300 ml -550 ml Intake Oral 240 ml 1440 ml 480 ml IV Total 262.5 ml Output Urine Total 1450 ml 1600 ml 300 ml 550 ml # Bowel Movements 0 2 0 1 Result Diagram: 12/18/1782412/18/17924 Objective Remarks GENERAL: This is a well-nourished, well-developed patient, in no apparent distress. CARDIOVASCULAR: Normal rate and regular rhythm without murmurs, gallops, or rubs. RESPIRATORY: Good respiratory efforts. Breath sounds equal and clear to auscultation bilaterally. GASTROINTESTINAL: Abdomen soft, non-tender, non-distended. Normal active bowel sounds MUSCULOSKELETAL: Status post right BKA. Dressing/Edward wrap appear intact. NEURO: Alert & Oriented x4 to person, place, time, situation. Moves all ext x4 PSYCH: Appropriate mood and affect. 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 Podiatry and vascular surgery have evaluated patient. Right lower extremity arterial occlusive disease: Status post BKA. - Patient is status post attempt at revascularization per vascular surgery. However no target was found. Status post right BKA by vascular surgery on . -Continue to wean off IV pain medication as tolerated Possible focal osteomyelitis. Wound culture positive for MRSA continue IV vancomycin. Patient was followed by ID. Antibiotics discontinued since focus of infection has been removed. Chronic anemia. Stable Duodenal and Rectal ulcer. Stable continue Iron supplementation as well as Protonix. DVT prophylaxis with Lovenox. Discharge Planning Pending clearance by vascular surgery and better pain control with oral medications only. Vladislav Lundberg MD Dec 19, 2017 21:24
[2017-12-20] VITALS (9 sets, daily range): BP systolic 109–154; BP diastolic 63–80; PULSE 59–83; RESP 18–21; TEMP 97.8–98.6; O2SAT 93–97
[2017-12-20] MEDS: MORPHINE SULFATE 4 MG/ML INJ IV PUSH PRN ×5 (00:46→20:22)
[2017-12-20] MEDS: HYDROmorphone HCL 2 MG TAB PO PRN ×4 (03:31→17:33)
[2017-12-20] MEDS ORDERED: PHARMACY ORDERED LAB ONE (03:45)
[2017-12-20] MEDS: GABAPENTIN 100 MG CAP PO SCH ×3 (08:31→17:33)
[2017-12-20] MEDS: PANTOPRAZOLE SOD 40 MG DELAYED RELEASE TAB PO SCH (08:31)
[2017-12-20] MEDS: FERROUS SULFATE 325 MG (65 MG ELEMENTAL IRON) TAB PO SCH ×2 (08:32→20:23)
[2017-12-20] MEDS: SODIUM CHLORIDE 0.9% FLUSH 10 ML FLUSH IV FLUSH SCH ×2 (08:32→20:23)
[2017-12-20 08:54] LABS: HEMATOCRIT 27.8 % (39.0-51.0); HEMOGLOBIN 8.7 GM/DL (13.0-17.0); MEAN CELL VOLUME 69.3 FL (80.0-100.0); MEAN CORPUSCULAR HEMOGLOBIN 21.8 PG (27.0-34.0); MEAN CORPUSCULAR HGB CONC 31.5 % (32.0-36.0); MEAN PLATELET VOLUME 9.9 FL (7.0-11.0); PLATELET COUNT 271 TH/MM3 (150-450); RED CELL DISTRIBUTION WIDTH 20.5 % (11.6-17.2); WHITE BLOOD COUNT 9.7 TH/MM3 (4.0-11.0)
[2017-12-20 09:21] LABS: BICARBONATE 27.7 MEQ/L (21.0-32.0); CALCIUM 9.8 MG/DL (8.5-10.1); CREATININE 1.03 MG/DL (0.60-1.30)
--- NOTE | 2017-12-20 14:39 | HHI.PR ---
Subjective Remarks Patient reports pain is better controlled. No other issues. Objective Vitals Vital Signs Date Time Temp Pulse Resp B/P (MAP) Pulse Ox O2 Delivery O2 Flow Rate FiO2 12/20/17 12:58 98.4 67 20 114/66 (82) 97 12/20/17 09:09 98.3 71 18 109/73 (85) 96 12/20/17 08:00 64 12/20/17 08:00 Room Air 12/20/17 04:00 98.6 81 19 154/80 (104) 93 12/20/17 04:00 68 12/20/17 04:00 Room Air 12/20/17 00:00 71 12/20/17 00:00 Room Air 12/20/17 00:00 98.4 73 21 125/63 (83) 94 12/19/17 20:00 Room Air 12/19/17 20:00 79 12/19/17 20:00 98.5 83 19 132/61 (84) 96 12/19/17 16:00 97.3 75 18 137/76 (96) 96 12/19/17 16:00 80 I/O 12/19/17 12/19/17 12/19/17 12/20/17 12/20/17 12/20/17 07:00 15:00 23:00 07:00 15:00 23:00 Intake Total 480 ml 400 ml Output Total 1600 ml 300 ml 550 ml 1550 ml Balance -1120 ml -300 ml -550 ml -1150 ml Intake Oral 480 ml 400 ml Output Urine Total 1600 ml 300 ml 550 ml 1550 ml # Bowel Movements 0 1 0 Result Diagram: 12/20/17 0745 12/20/17 0745 Objective Remarks GENERAL: This is a well-nourished, well-developed patient, in no apparent distress. CARDIOVASCULAR: Normal rate and regular rhythm without murmurs, gallops, or rubs. RESPIRATORY: Good respiratory efforts. Breath sounds equal and clear to auscultation bilaterally. GASTROINTESTINAL: Abdomen soft, non-tender, non-distended. Normal active bowel sounds MUSCULOSKELETAL: Status post right BKA. Dressing/Edward wrap appear intact. NEURO: Alert & Oriented x4 to person, place, time, situation. Moves all ext x4 PSYCH: Appropriate mood and affect. 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 Podiatry and vascular surgery have evaluated patient. Right lower extremity arterial occlusive disease: Status post BKA. - Patient is status post attempt at revascularization per vascular surgery. However no target was found. Status post right BKA by vascular surgery on . -Continue to wean off IV pain medication as tolerated. Discussed with patient to minimize the use of IV pain medications. Possible focal osteomyelitis. Wound culture positive for MRSA continue IV vancomycin. Patient was followed by ID. Antibiotics discontinued since focus of infection has been removed. Chronic anemia. Stable Duodenal and Rectal ulcer. Stable continue Iron supplementation as well as Protonix. DVT prophylaxis with Lovenox. Discharge Planning Pending clearance by vascular surgery and better pain control with oral medications only. Need to ensure he can safely ambulate. He has no benefit for SNF. Vladislav Lundberg MD Dec 20, 2017 14:39
[2017-12-21] VITALS: BP 109/56; PULSE 68; RESP 18; TEMP 98.4; O2SAT 98
[2017-12-21] MEDS: HYDROmorphone HCL 2 MG TAB PO PRN ×4 (00:17→15:12)
[2017-12-21] MEDS: MORPHINE SULFATE 4 MG/ML INJ IV PUSH PRN ×3 (01:59→12:22)
[2017-12-21 04:00] VITALS: BP 112/55; PULSE 64; PULSE 66; RESP 16; TEMP 98.1; O2SAT 96
[2017-12-21 08:00] VITALS: BP 104/57; PULSE 64; PULSE 68; RESP 20; TEMP 98.2; O2SAT 98
[2017-12-21] MEDS: SODIUM CHLORIDE 0.9% FLUSH 10 ML FLUSH IV FLUSH SCH ×2 (08:03→20:39)
[2017-12-21] MEDS: FERROUS SULFATE 325 MG (65 MG ELEMENTAL IRON) TAB PO SCH ×2 (08:03→20:37)
[2017-12-21] MEDS: GABAPENTIN 100 MG CAP PO SCH ×3 (08:03→16:44)
[2017-12-21] MEDS: PANTOPRAZOLE SOD 40 MG DELAYED RELEASE TAB PO SCH (08:03)
[2017-12-21 12:00] VITALS: BP 105/59; PULSE 67; PULSE 69; RESP 20; TEMP 97.9; O2SAT 97
--- NOTE | 2017-12-21 13:19 | HHI.PR ---
Subjective Remarks Patient reports he is on okay. He is hoping to get accepted at rehabilitation facility. [facility] is evaluating. He understands the need to wean off IV pain medications. Objective Vitals Vital Signs Date Time Temp Pulse Resp B/P (MAP) Pulse Ox O2 Delivery O2 Flow Rate FiO2 12/21/17 12:00 97.9 67 20 105/59 (74) 97 12/21/17 09:31 Room Air 12/21/17 08:00 64 12/21/17 08:00 98.2 68 20 104/57 (73) 98 12/21/17 04:00 98.1 66 16 112/55 (74) 96 12/21/17 04:00 Room Air 12/21/17 04:00 64 12/21/17 00:15 Room Air 12/21/17 00:00 68 12/21/17 00:00 98.4 68 18 109/56 (73) 98 12/20/17 20:20 Room Air 12/20/17 20:00 98.0 79 20 115/68 (84) 96 12/20/17 20:00 83 12/20/17 17:19 97.8 79 20 121/76 (91) 97 12/20/17 16:00 78 I/O 12/20/17 12/20/17 12/20/17 12/21/17 12/21/17 12/21/17 06:59 14:59 22:59 06:59 14:59 22:59 Intake Total 400 ml 600 ml 480 ml Output Total 1550 ml 850 ml 900 ml 1600 ml Balance -1150 ml -850 ml -300 ml -1120 ml Intake Oral 400 ml 600 ml 480 ml Output Urine Total 1550 ml 850 ml 900 ml 1600 ml # Bowel Movements 0 0 0 0 Result Diagram: 12/20/17 0745 12/20/17 0745 Objective Remarks GENERAL: This is a well-nourished, well-developed patient, in no apparent distress. CARDIOVASCULAR: Normal rate and regular rhythm without murmurs, gallops, or rubs. RESPIRATORY: Good respiratory efforts. Breath sounds equal and clear to auscultation bilaterally. GASTROINTESTINAL: Abdomen soft, non-tender, non-distended. Normal active bowel sounds MUSCULOSKELETAL: Status post right BKA. Dressing/Edward wrap appear intact. NEURO: Alert & Oriented x4 to person, place, time, situation. Moves all ext x4 PSYCH: Appropriate mood and affect. 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 Podiatry and vascular surgery have evaluated patient. Right lower extremity arterial occlusive disease: Status post BKA. - Patient is status post attempt at revascularization per vascular surgery. However no target was found. Status post right BKA by vascular surgery on . -Wean off IV morphine. Change pain medication to Tylenol and oxycodone for severe pain as needed. - PT. OT consult. Being evaluated by [facility] for rehabilitation. Possible focal osteomyelitis. Wound culture positive for MRSA continue IV vancomycin. Patient was followed by ID. Antibiotics discontinued since focus of infection has been removed. Chronic anemia. Stable Duodenal and Rectal ulcer. Stable continue Iron supplementation as well as Protonix. DVT prophylaxis with Lovenox. Discharge Planning [facility] evaluation pending. Vladislav Lundberg MD Dec 21, 2017 13:19
--- NOTE | 2017-12-21 14:37 | PD.VS.PN ---
Subjective POD #: 4 Procedure(s): R BKA Subjective/Hospital Course Pt c/o mild intermittent phantom pain (improving) Pain controlled Dressing I/C/D Pt with improved R LE swelling Objective Vitals/I&O Date Time Temp Pulse Resp B/P (MAP) Pulse Ox O2 Delivery O2 Flow Rate FiO2 12/21/17 12:00 69 12/21/17 12:00 97.9 67 20 105/59 (74) 97 12/21/17 09:31 Room Air 12/21/17 08:00 64 12/21/17 08:00 98.2 68 20 104/57 (73) 98 12/21/17 04:00 98.1 66 16 112/55 (74) 96 12/21/17 04:00 Room Air 12/21/17 04:00 64 12/21/17 00:15 Room Air 12/21/17 00:00 68 12/21/17 00:00 98.4 68 18 109/56 (73) 98 12/20/17 20:20 Room Air 12/20/17 20:00 98.0 79 20 115/68 (84) 96 12/20/17 20:00 83 12/20/17 17:19 97.8 79 20 121/76 (91) 97 12/20/17 16:00 78 12/21/17 12/21/17 12/21/17 07:00 15:00 23:00 Intake Total 480 ml Output Total 1600 ml Balance -1120 ml Exam: GENERAL: A&Ox3, NAD, GCS15 SKIN: Warm and dry R LE w/ improved swelling R LE w/o erythema or drainage CARDIOVASCULAR: Regular rate and rhythm without murmurs, gallops, or rubs. RESPIRATORY: Breath sounds equal bilaterally. No accessory muscle use. Laboratory Date/Time Source Procedure Growth Status 12/11/17 15:11 Wound Foot Gram Stain - Final Complete 12/11/17 15:11 Wound Culture - Final S. Aureus Mrsa Complete Assessment and Plan Assessment: (1) Ischemic rest pain of lower extremity (2) Osteomyelitis Status: Acute Plan POD#4 Pt s/p R BKA Pt w/ improved swelling and pain Plan Continue aggressive PT (straighten leg to improve chance of wearing prosthesis) Continue to apply an LUIS ENRIQUE wrap (R LE) while swelling is present Continue pain control D/C planning ([facility]) Susie Stahl NP [facility]/[place] [phone] Discharge Planning D/C planning to [facility] Problem Qualifiers (1) Osteomyelitis: Qualified Codes: M86.071 - Acute hematogenous osteomyelitis, right ankle and foot Susie Stahl Dec 21, 2017 14:37
[2017-12-21 16:00] VITALS: BP 113/63; PULSE 68; PULSE 71; RESP 20; TEMP 98.1; O2SAT 96
[2017-12-21 20:00] VITALS: BP 110/58; PULSE 76; PULSE 88; RESP 20; TEMP 98.1; O2SAT 96
[2017-12-22] VITALS (7 sets, daily range): BP systolic 108–120; BP diastolic 56–78; PULSE 62–72; RESP 18–20; TEMP 97.9–99; O2SAT 96–99
[2017-12-22] MEDS: PANTOPRAZOLE SOD 40 MG DELAYED RELEASE TAB PO SCH (08:50)
[2017-12-22] MEDS: FERROUS SULFATE 325 MG (65 MG ELEMENTAL IRON) TAB PO SCH ×2 (08:50→21:31)
[2017-12-22] MEDS: GABAPENTIN 100 MG CAP PO SCH ×3 (08:51→17:27)
[2017-12-22] MEDS: SODIUM CHLORIDE 0.9% FLUSH 10 ML FLUSH IV FLUSH SCH ×2 (08:51→21:31)
--- NOTE | 2017-12-22 13:22 | HHI.PR ---
Subjective Remarks no complains of pain Objective Vitals Vital Signs Date Time Temp Pulse Resp B/P (MAP) Pulse Ox O2 Delivery O2 Flow Rate FiO2 12/22/17 12:00 98.5 66 20 120/69 (86) 96 12/22/17 08:57 Room Air 12/22/17 08:00 97.9 64 20 110/56 (74) 98 12/22/17 08:00 62 12/22/17 04:48 98.3 69 20 117/78 (91) 99 12/22/17 04:00 Room Air 12/22/17 03:48 63 12/22/17 00:00 98.2 66 18 109/56 (73) 98 12/22/17 00:00 66 12/22/17 00:00 Room Air 12/21/17 20:00 Room Air 12/21/17 20:00 98.1 76 20 110/58 (75) 96 12/21/17 20:00 88 12/21/17 16:00 71 12/21/17 16:00 98.1 68 20 113/63 (80) 96 I/O 12/21/17 12/21/17 12/21/17 12/22/17 12/22/17 12/22/17 07:00 15:00 23:00 07:00 15:00 23:00 Intake Total 480 ml 960 ml 680 ml Output Total 1600 ml 1000 ml 1600 ml 500 ml Balance -1120 ml -40 ml -920 ml -500 ml Intake Oral 480 ml 960 ml 680 ml Output Urine Total 1600 ml 1000 ml 1600 ml 500 ml # Voids 2 # Bowel Movements 0 1 1 1 Result Diagram: 12/20/17 0745 12/20/17 0745 Imaging Last Impressions Foot X-Ray 12/08/17 0000 Signed Impressions: Service Date/Time: Friday, December 08, 2017 16:20 - CONCLUSION: New lucency involving the head of the right fourth metatarsal and possibly the head of the right third metatarsal. If there is strong clinical concern for osteomyelitis, MRI of the foot with contrast would be more sensitive in this patient. Martinez Avery MD Foot MRI 12/08/17 0000 Signed Impressions: Service Date/Time: Friday, December 08, 2017 19:51 - CONCLUSION: There is a focal bone marrow edema along with some enhancement involving the distal fourth metatarsal with adjacent soft tissue swelling. These findings are suspicious for focal osteomyelitis of the distal metatarsal. 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 Podiatry and vascular surgery have evaluated patient. Right lower extremity arterial occlusive disease: Status post BKA.12/17/2017 - Patient is status post attempt at revascularization per vascular surgery. However no target was found. -Wean off IV morphine. Change pain medication to Tylenol and oxycodone for severe pain as needed. - PT. OT consult. Being evaluated by [facility] for rehabilitation- awaiting [facility] bed Possible focal osteomyelitis. Wound culture positive for MRSA continue IV vancomycin. Patient was followed by ID. Antibiotics discontinued since focus of infection has been removed. Chronic anemia. Stable Duodenal and Rectal ulcer. Stable continue Iron supplementation as well as Protonix. DVT prophylaxis with Lovenox. Discharge Planning [facility] evaluation pending. Carrie Ventura MD Dec 22, 2017 13:22
[2017-12-23] VITALS (8 sets, daily range): BP systolic 100–125; BP diastolic 58–70; PULSE 53–84; RESP 17–18; TEMP 97.8–98.4; O2SAT 98–99
[2017-12-23] MEDS: FERROUS SULFATE 325 MG (65 MG ELEMENTAL IRON) TAB PO SCH ×2 (09:57→21:04)
[2017-12-23] MEDS: PANTOPRAZOLE SOD 40 MG DELAYED RELEASE TAB PO SCH (09:58)
[2017-12-23] MEDS: GABAPENTIN 100 MG CAP PO SCH ×3 (09:58→18:25)
[2017-12-23] MEDS: SODIUM CHLORIDE 0.9% FLUSH 10 ML FLUSH IV FLUSH SCH ×2 (09:59→21:04)
--- NOTE | 2017-12-23 11:41 | PD.VS.PN ---
Subjective POD #: 6 Procedure(s): R BKA Subjective/Hospital Course Pain controlled R BKA Dressing removed Pt with improved R LE swelling Objective Vitals/I&O Date Time Temp Pulse Resp B/P (MAP) Pulse Ox O2 Delivery O2 Flow Rate FiO2 12/23/17 09:00 Room Air 12/23/17 08:03 98.2 53 17 125/70 (88) 99 12/23/17 04:00 97.8 55 18 100/66 (77) 99 12/23/17 04:00 53 12/23/17 00:00 59 12/23/17 00:00 Room Air 12/23/17 00:00 98.4 60 18 109/64 (79) 98 12/22/17 20:00 Room Air 12/22/17 20:00 98.5 72 18 108/69 (82) 98 12/22/17 20:00 67 12/22/17 16:00 70 12/22/17 16:00 99.0 64 20 110/60 (77) 99 12/22/17 12:00 98.5 66 20 120/69 (86) 96 12/22/17 12:00 68 12/23/17 12/23/17 12/23/17 07:00 15:00 23:00 Output Total 700 ml Balance -700 ml Exam: ENERAL: A&Ox3, NAD, GCS15 SKIN: Warm and dry R LE w/ improved swelling R LE w/o erythema or drainage incision well approximated with staple closure w/ o erythema/swelling/drainage CARDIOVASCULAR: Regular rate and rhythm without murmurs, gallops, or rubs. RESPIRATORY: Breath sounds equal bilaterally. No accessory muscle use. Laboratory Date/Time Source Procedure Growth Status 12/21/17 21:15 Stool Stool Stool Occult Blood ([facility]) - Final HEMOCCULT NEGATIVE Complete 12/11/17 15:11 Wound Foot Gram Stain - Final Complete 12/11/17 15:11 Wound Culture - Final S. Aureus Mrsa Complete Assessment and Plan Assessment: (1) Ischemic rest pain of lower extremity (2) Osteomyelitis Status: Acute Plan POD#6 Pt s/p R BKA Pt w/ improved swelling and pain Plan Continue aggressive PT (straighten leg to improve chance of wearing prosthesis) OK to leave incision open to air May apply a dry dressing if drainage present Pt clear for D/C from a vascular stand point ([facility]) Susie Stahl NP [facility]/[place] [phone] Discharge Planning D/C to [facility] Problem Qualifiers (1) Osteomyelitis: Qualified Codes: M86.071 - Acute hematogenous osteomyelitis, right ankle and foot Susie Stahl Dec 23, 2017 11:41
--- NOTE | 2017-12-23 13:41 | HHI.PR ---
Subjective Remarks pain controlled afebrile Objective Vitals Vital Signs Date Time Temp Pulse Resp B/P (MAP) Pulse Ox O2 Delivery O2 Flow Rate FiO2 12/23/17 12:03 98.3 66 17 113/59 (77) 98 12/23/17 09:00 Room Air 12/23/17 08:03 98.2 53 17 125/70 (88) 99 12/23/17 04:00 97.8 55 18 100/66 (77) 99 12/23/17 04:00 53 12/23/17 00:00 59 12/23/17 00:00 Room Air 12/23/17 00:00 98.4 60 18 109/64 (79) 98 12/22/17 20:00 Room Air 12/22/17 20:00 98.5 72 18 108/69 (82) 98 12/22/17 20:00 67 12/22/17 16:00 70 12/22/17 16:00 99.0 64 20 110/60 (77) 99 I/O 12/22/17 12/22/17 12/22/17 12/23/17 12/23/17 12/23/17 07:00 15:00 23:00 07:00 15:00 23:00 Intake Total 680 ml 480 ml Output Total 1600 ml 500 ml 400 ml 700 ml Balance -920 ml -20 ml -400 ml -700 ml Intake Oral 680 ml 480 ml Output Urine Total 1600 ml 500 ml 400 ml 700 ml # Voids 5 # Bowel Movements 1 1 Result Diagram: 12/20/17 0745 12/20/17 0745 Imaging Last Impressions Foot X-Ray 12/08/17 0000 Signed Impressions: Service Date/Time: Friday, December 08, 2017 16:20 - CONCLUSION: New lucency involving the head of the right fourth metatarsal and possibly the head of the right third metatarsal. If there is strong clinical concern for osteomyelitis, MRI of the foot with contrast would be more sensitive in this patient. Martinez Avery MD Foot MRI 12/08/17 0000 Signed Impressions: Service Date/Time: Friday, December 08, 2017 19:51 - CONCLUSION: There is a focal bone marrow edema along with some enhancement involving the distal fourth metatarsal with adjacent soft tissue swelling. These findings are suspicious for focal osteomyelitis of the distal metatarsal. Petr Malave MD Objective Remarks awake and alert lungs-clear regular rhythm abdomen-soft, good bowel sounds right BKA- -benjamin in place, stump mild swelling A/P Problem List: (1) Peripheral arterial occlusive disease ICD Code: I77.9 - Disorder of arteries and arterioles, unspecified Assessment and Plan 52-year-old male with a past medical history significant for occlusive thrombus of the popliteal artery on the right side who is status post amputation of the fourth digit of the right foot secondary to osteomyelitis presents to the emergency department with continued, severe right foot pain. Podiatry and vascular surgery have evaluated patient. Right lower extremity arterial occlusive disease: Status post BKA.12/17/2017 - Patient is status post attempt at revascularization per vascular surgery. However no target was found. -Wean off IV morphine. Change pain medication to Tylenol and oxycodone for severe pain as needed. - PT. OT consult. Being evaluated by [facility] for rehabilitation- awaiting [facility] Possible focal osteomyelitis. Wound culture positive for MRSA continue IV vancomycin. Patient was followed by ID. Antibiotics discontinued since focus of infection has been removed. Chronic anemia. Stable Duodenal and Rectal ulcer. Stable continue Iron supplementation as well as Protonix. DVT prophylaxis with Lovenox. Discharge Planning [facility] evaluation pending. Carrie Ventura MD Dec 23, 2017 13:41
[2017-12-23] MEDS ORDERED: MORPHINE SULFATE 2 MG/ML INJ IV PUSH PRN (15:45)
[2017-12-24] VITALS (8 sets, daily range): BP systolic 113–125; BP diastolic 55–62; PULSE 52–86; RESP 16–18; TEMP 97.9–98.4; O2SAT 96–100
[2017-12-24] MEDS: FERROUS SULFATE 325 MG (65 MG ELEMENTAL IRON) TAB PO SCH (09:17)
[2017-12-24] MEDS: PANTOPRAZOLE SOD 40 MG DELAYED RELEASE TAB PO SCH (09:17)
[2017-12-24] MEDS: GABAPENTIN 100 MG CAP PO SCH ×3 (09:17→17:44)
[2017-12-24] MEDS: SODIUM CHLORIDE 0.9% FLUSH 10 ML FLUSH IV FLUSH SCH (09:18)
--- NOTE | 2017-12-24 10:36 | HHI.PR ---
Subjective Remarks pain controlled on po meds looking forward to [facility] [place] Objective Vitals Vital Signs Date Time Temp Pulse Resp B/P (MAP) Pulse Ox O2 Delivery O2 Flow Rate FiO2 12/24/17 08:08 98.4 52 18 113/55 (74) 98 12/24/17 04:00 97.9 58 17 113/58 (76) 96 12/24/17 04:00 59 12/24/17 00:00 86 12/24/17 00:00 98.0 64 16 113/58 (76) 96 12/23/17 20:00 98.4 61 17 108/58 (75) 99 12/23/17 20:00 84 12/23/17 19:45 99 Room Air 12/23/17 16:18 97.9 59 17 116/66 (83) 98 12/23/17 15:47 73 12/23/17 12:03 98.3 66 17 113/59 (77) 98 I/O 12/23/17 12/23/17 12/23/17 12/24/17 12/24/17 12/24/17 07:00 15:00 23:00 07:00 15:00 23:00 Intake Total 720 ml 700 ml Output Total 700 ml 400 ml 1200 ml Balance -700 ml 320 ml -500 ml Intake Oral 720 ml 700 ml Output Urine Total 700 ml 400 ml 1200 ml # Bowel Movements 1 Result Diagram: 12/20/17 0745 12/20/17 0745 Imaging Last Impressions Foot X-Ray 12/08/17 0000 Signed Impressions: Service Date/Time: Friday, December 08, 2017 16:20 - CONCLUSION: New lucency involving the head of the right fourth metatarsal and possibly the head of the right third metatarsal. If there is strong clinical concern for osteomyelitis, MRI of the foot with contrast would be more sensitive in this patient. Martinez Avery MD Foot MRI 12/08/17 0000 Signed Impressions: Service Date/Time: Friday, December 08, 2017 19:51 - CONCLUSION: There is a focal bone marrow edema along with some enhancement involving the distal fourth metatarsal with adjacent soft tissue swelling. These findings are suspicious for focal osteomyelitis of the distal metatarsal. 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 Podiatry and vascular surgery have evaluated patient. Right lower extremity arterial occlusive disease: Status post BKA.12/17/2017 - Patient is status post attempt at revascularization per vascular surgery. However no target was found. -Wean off IV morphine. Change pain medication to Tylenol and oxycodone for severe pain as needed. - PT. [facility] bed Possible focal osteomyelitis. Wound culture positive for MRSA continue IV vancomycin. Patient was followed by ID. Antibiotics discontinued since focus of infection has been removed. Chronic anemia. Stable Duodenal and Rectal ulcer. Stable continue Iron supplementation as well as Protonix. DVT prophylaxis with Lovenox. Discharge Planning Carrie Everett MD Dec 24, 2017 10:36
[2017-12-24] MEDS ORDERED: OXYC-392 PO (10:38)
--- NOTE | 2017-12-24 10:39 | HHI.DS ---
Discharge Summary Admission Date Dec 08, 2017 at 19:22 Discharge Date: Dec 24, 2017 Admitting Diagnosis right foot osteomyelitis (1) Peripheral arterial occlusive disease ICD Code: I77.9 - Disorder of arteries and arterioles, unspecified Diagnosis: Principal Procedures 12/17- right BKA Brief History - From Admission 52-year-old male with a past medical history significant for occlusive thrombus of the popliteal artery on the right side who is status post amputation of the fourth digit of the right foot secondary to osteomyelitis presents to the emergency department with continued, severe right foot pain. The patient reports the pain has been going on for approximately one month. He denies any fevers/chills. He reports difficulty with ambulation secondary to pain. He was discharged from the hospital on 12/02/17 with a one-week supply of Bactrim status post amputation. CBC/BMP: 12/20/17 0745 12/20/17 0745 Imaging Last Impressions Foot X-Ray 12/08/17 0000 Signed Impressions: Service Date/Time: Friday, December 08, 2017 16:20 - CONCLUSION: New lucency involving the head of the right fourth metatarsal and possibly the head of the right third metatarsal. If there is strong clinical concern for osteomyelitis, MRI of the foot with contrast would be more sensitive in this patient. Martinez Avery MD Foot MRI 12/08/17 0000 Signed Impressions: Service Date/Time: Friday, December 08, 2017 19:51 - CONCLUSION: There is a focal bone marrow edema along with some enhancement involving the distal fourth metatarsal with adjacent soft tissue swelling. These findings are suspicious for focal osteomyelitis of the distal metatarsal. Petr Malave MD PE at Discharge awake and alert lungs-clear regular rhythm abdomen-soft, good bowel sounds right BKA- -benjamin in place, incisions dry, stump mild swelling, no erythema Pt update on day of discharge awake and alert pain well controlled on po regimen looking forward to rehab- very motivated Hospital Course 52-year-old male with a past medical history significant for occlusive thrombus of the popliteal artery on the right side who is status post amputation of the fourth digit of the right foot secondary to osteomyelitis presents to the emergency department with continued, severe right foot pain. Podiatry and vascular surgery have evaluated patient. Right lower extremity arterial occlusive disease: Status post BKA.12/17/2017 - Patient is status post attempt at revascularization per vascular surgery. However no target was found. -Wean off IV morphine. Change pain medication to Tylenol and oxycodone for severe pain as needed. - PT. OT. [facility] for rehabilitation- [facility] bed Possible focal osteomyelitis. Wound culture positive for MRSA continue IV vancomycin. Patient was followed by ID. Antibiotics discontinued since focus of infection has been removed. Chronic anemia. Stable Duodenal and Rectal ulcer. Stable continue Iron supplementation as well as Protonix. DVT prophylaxis with Lovenox. Pt Condition on Discharge: Stable Discharge Disposition: Rehab Inpatient Discharge Time: <= 30 minutes Discharge Instructions DIET: Follow Instructions for: As Tolerated, No Restrictions Speech Therapy-Diet Recommends: Regular Activities you can perform: See Additionl Instruction Other Activity Instructions: PT supervision Follow up Referrals: Vascular Surgery @ Vascular Surgery with Martinez Bryant MD New Medications: Oxycodone (Oxycodone) 5 Mg Tab 5 MG PO Q4H PRN for PAIN GREATER THAN 5, #15 TAB Continued Medications: Ferrous Sulfate (Ferosul) 325 Mg (65 Mg Iron) Tablet 325 MG PO BID for roger, #60 TAB Carrie Ventura MD Dec 24, 2017 10:39
== END 2017-12-24 17:54 | DRG 240 ==
LOC: NEPC 16:01 → NEDA 19:22 → NEPHCDU 21:18 → N04A 12-10 12:18 → N04B 12-15 19:11
PROVIDERS: ADMIT Internal Medicine; ATTEND Internal Medicine
PROC: 04JY0ZZ Inspection of Lower Artery, Open Approach (ICD-10-PCS; principal; 2017-12-14 14:47)
PROC: 0Y6H0Z1 Detachment at Right Lower Leg, High, Open Approach (ICD-10-PCS; 2017-12-17)
DX: I73.9 Peripheral vascular disease, unspecified (principal); M86.071 Acute hematogenous osteomyelitis, right ankle and foot; K26.9 Duodenal ulcer, unspecified as acute or chronic, without hemorrhage or perforation; K62.6 Ulcer of anus and rectum; G54.6 Phantom limb syndrome with pain; D64.9 Anemia, unspecified; B95.62 Methicillin resistant Staphylococcus aureus infection as the cause of diseases classified elsewhere; Z87.891 Personal history of nicotine dependence
CPT/HCPCS: 73630; 73720; 80048; 80053; 80202; 80307; 82272; 82565; 83735; 85025; 85027; 85610; 85652; 85730; 86403; 86850; 86900; 86901; 87070; 87147; 87186; 87205; 88307; 88311; 93005; 99285; A9579; J0131; J0690; J1100; J1170; J1200; J1644; J1650; J1956; J2270; J2370; J2405; J2543; J2710; J2720; J3010; J3370; J7030; J7050; J7120; L3260